=== PATIENT | male | born 1950 | race Caucasian/White ===

== ENCOUNTER 2016-12-12 08:10 | Day surgery (SDC) | payer MEDICARE, OTHER ==
[2016-12-08 10:54] VITALS: BMI 35.6
[~2016-12-12 08:10] MED LIST: DEXAMETHASONE SOD PHOSPHATE 10 MG/ML 1 ML VIAL IV ONE; HEPARIN SODIUM,PORCINE 5,000 UNIT/ML 1 ML VIAL SQ ONE; HYDROmorphone 0.5 MG/0.5 ML SYRINGE IVP PRN; LACTATED RINGERS 1,000 ML IV SCH; MIDAZOLAM 2 MG/2 ML VIAL IV PRN; ONDANSETRON 4 MG/2 ML VIAL IVP ONE; Pre Op ABX Message 1 EACH MISC MISCELLANE ONE
[2016-12-12 08:54] VITALS: TEMP 97.9
[2016-12-12] MEDS ORDERED: LIDOCAINE 1% 20 ML VIAL (10MG/ML) FOR IV START INTRADERMA ONE (09:00)
[2016-12-12] MEDS ORDERED: ceFAZolin 2 GM in SODIUM CHLORIDE 0.9% 100 ML IVPB STA (09:56)
--- NOTE | 2016-12-12 09:58 | P.GSHP ---
History of Present Illness H&P Date: 12/12/16 Chief Complaint: Left forehead sebaceous cyst This is a 66-year-old male who presents today for excision of left forehead sebaceous cyst. Patient developed a 3 cm mass just above his left eyebrow. Past Medical History Past Medical History: Hyperlipidemia, Hypertension, Thyroid Disorder Additional Past Medical History / Comment(s): cyst on forehead, gout History of Any Multi-Drug Resistant Organisms: MRSA Date of last positivie culture/infection: 2012 MDRO Source:: left hip Past Surgical History: Joint Replacement Additional Past Surgical History / Comment(s): left hip Past Anesthesia/Blood Transfusion Reactions: No Reported Reaction Smoking Status: Current every day smoker - Past Family History Mother Family Medical History: No Reported History Medications and Allergies Home Medications Medication Instructions Recorded Confirmed Type Aspirin [Adult Low Dose Aspirin EC] 81 mg PO DAILY 12/08/16 12/12/16 History Febuxostat [Uloric] 40 mg PO QAM 12/08/16 12/12/16 History Levothyroxine Sodium [Synthroid] 75 mcg PO QAM 12/08/16 12/12/16 History Losartan/Hydrochlorothiazide 1 each PO QAM 12/08/16 12/12/16 History [Hyzaar 100-12.5 Tablet] Sertraline [Zoloft] 50 mg PO QAM 12/08/16 12/12/16 History Simvastatin [Zocor] 40 mg PO QAM 12/08/16 12/12/16 History Allergies Allergy/AdvReac Type Severity Reaction Status Date / Time bupropion [From Zyban] Allergy Rash/Hives Verified 12/12/16 08:52 diclofenac [From Arthrotec] Allergy Anaphylaxis Verified 12/12/16 08:52 misoprostol [From Arthrotec] Allergy Anaphylaxis Verified 12/12/16 08:52 Hwnqxac-Pvj-Rra Reductase AdvReac muscle pain Verified 12/12/16 08:52 Inhibitor Surgical - Exam Vital Signs Temp Pulse Resp BP Pulse Ox 97.9 F 63 16 152/91 97 12/12/16 08:52 12/12/16 08:52 12/12/16 08:52 12/12/16 08:52 12/12/16 08:52 - General well developed, no distress - Eyes PERRL - ENT 3 cm cyst above left eyebrow. normal pinna - Neck no masses - Respiratory normal expansion - Cardiovascular Rhythm: regular - Abdomen Abdomen: soft, non tender Assessment and Plan Plan: Sebaceous cyst left forearm. We'll perform excision.
[2016-12-12] MEDS ORDERED: fentaNYL (PF) 50 MCG/ML 2 ML AMP ONE (10:34)
[2016-12-12] MEDS ORDERED: MIDAZOLAM 2 MG/2 ML VIAL ONE (10:34)
[2016-12-12] MEDS ORDERED: PROPOFOL 10 MG/ML 20 ML VIAL IV ONE (10:34)
[2016-12-12] MEDS ORDERED: BUPIVACAIN-EPI 0.5%-1:200,000 30 ML VIAL SQ ONE ×2 (10:34)
--- NOTE | 2016-12-12 10:38 | P.OP ---
Date of Procedure: 12/12/16 Preoperative Diagnosis: GI bleed Postoperative Diagnosis: Antral gastritis Hiatal hernia Esophagitis Internal hemorrhoids. Diverticulosis Procedure(s) Performed: EGD Colonoscopy Anesthesia: MAC Surgeon: Raghu Haider Pathology: other (Antrum, esophagus) Condition: stable Disposition: PACU Description of Procedure: The patient's placed on the endoscopy table in the lateral position. He received IV sedation. Digital rectal exam was performed which revealed internal and external hemorrhoids. Flexible colonoscope was then placed patient anus passed throughout the entire colon. The ileocecal valve was visualized. The cecum, ascending and transverse colon appeared normal. In the descending and sigmoid colon there were diverticular changes. Scope was brought back the rectum and this appeared normal. Scope was brought back through the anus and there were large internal hemorrhoids noted. Scope was withdrawn for patient. The gastroscope placed oropharynx and passed into the esophagus and stomach. Scope was then placed through the pylorus. The first and second portion of duodenum. Normal. The scope was then brought back the antrum this. Mildly inflamed. A biopsies performed. The scope was then retroflexed and remainder of the stomach appeared normal. There was a moderate size hiatal hernia. The GE junction was at 38 cm the distal esophagus appeared inflamed and a biopsies performed. The proximal esophagus appeared normal. Scope was withdrawn for patient.
[2016-12-12] MEDS ORDERED: KETOROLAC 30 MG/ML 1 ML VIAL IVP ONE ×2 (11:44)
[2016-12-12] MEDS ORDERED: MORPHINE SULFATE 4 MG/ML SYRINGE IVP ONE (11:45)
[2016-12-12 11:57] VITALS: BP 143/87; PULSE 68; RESP 18
--- NOTE | 2016-12-25 16:49 | P.OP ---
Date of Procedure: 12/12/16 Preoperative Diagnosis: Left forehead sebaceous cyst Postoperative Diagnosis: Left forehead lipoma Procedure(s) Performed: Excision of left forehead lipoma Anesthesia: MAC Surgeon: Raghu Haider Estimated Blood Loss (ml): 5 Pathology: other (Lipoma) Condition: stable Disposition: PACU Description of Procedure: The patient's placed on the operative table in the supine position. He received anesthesia. His left forehead was prepped and draped usual sterile fashion. The patient had a mass over his left eyebrow. The mass measures prostate 5 cm diameter. Skin was anesthetized 1% local Xylocaine. And then the skin was incised with a 15 blade. Using blunt and sharp dissection with cautery the mass was excised. The mass appeared to have appearance of intramuscular lipoma. The Bovie hemostasis. The skin was closed interrupted 3- 0 Monocryl suture. Dermabond was applied. Patient was sent to recovery in stable condition.
== END 2016-12-12 12:18 | disposition home or self-care (01) ==
LOC: OR 08:10
PROVIDERS: ATTEND Surgery
DX: L72.3 Sebaceous cyst (principal); E07.9 Disorder of thyroid, unspecified; E78.5 Hyperlipidemia, unspecified; I10 Essential (primary) hypertension; Z79.82 Long term (current) use of aspirin; F17.200 Nicotine dependence, unspecified, uncomplicated; Z79.899 Other long term (current) drug therapy
CPT/HCPCS: 88304; 11446; J2250; J2270; J1644; J1100; J0690; J2405; J3010; J1885; J2704

== ENCOUNTER → 2017-01-29 | Outpatient (CLI) | payer MEDICARE, OTHER ==
--- NOTE | 2017-01-29 12:01 | XR ---
EXAMINATION TYPE: XR knee complete RT DATE OF EXAM: 01/29/2017 COMPARISON: NONE HISTORY: Pain TECHNIQUE: Four views are submitted. FINDINGS: Mild narrowing of the medial compartment of the knee joint and patellofemoral joint. Hypertrophic spu rs are noted along the upper margin of the patella. Sclerotic changes involving the diaphysis of the femur. Osseous structures are intact. No acute frac ture seen. IMPRESSION: 1. Osteoarthritis. 2. Sclerotic lesion diaphysis femur may been the basis of a bone infarct. Chondroid lesion not exclud ed as lesion is only partially included. Correlate with dedicated femur series and bone scan.
== END | disposition home or self-care (01) ==
LOC: RADXRMAIN 11:46
PROVIDERS: ATTEND Physician Assistant
DX: M17.11 Unilateral primary osteoarthritis, right knee (principal); M89.8X8 Other specified disorders of bone, other site

== ENCOUNTER → 2017-03-02 | Outpatient (CLI) | payer MEDICARE, OTHER ==
--- NOTE | 2017-03-05 13:03 | MR ---
EXAMINATION TYPE: MR knee RT wo/w con, MR femur/thigh RT wo/w con DATE OF EXAM: 03/01/2017 and 03/02/2017 COMPARISON: Radiograph 01/29/2017 HISTORY: 66-year-old male with right knee pain/swelling x 6 mos; abnormal xray. ( Right Thigh Pain Gadavist 12.5 (accession [id number]) Technique: Multiplanar, multisequence images of the right knee followed by the right femur were obtai ethan before and after administration of 12.5 mL intravenous Gadavist gadolinium contrast. FINDINGS: KNEE: There is a heterogeneously enhancing, T2 hyperintense and T1 low signal bubbly lesion centered within the intramedullary space of the distal femoral diaphysis and measures 4.3 cm craniocaudal by 3.0 cm wide by 2.6 cm AP dimension. Dark signal curvilinear areas are present within suggesting lesion with chondroid matrix. However, this abuts the posterior cortex and violates it focally measuring 1 cm wide and 8 mm cranioc audal. No significant extraosseous component is seen. The ACL, PCL, MCL, and LCL complex appear intact. There appears to be a posterior root tear of the lateral meniscus with additional oblique tear extend ing along the posterior horn and body. Overall lateral compartment articular cartilage volume is main tained. There is also extensive degenerative signal within the posterior horn of the medial meniscus and susp ected small tear at the junction of the posterior horn and body. Overall medium compartment articular cartilage is maintained. There is mild degenerative thinning of patellofemoral compartment articular cartilage with small foca l areas of moderate irregular cartilage loss and associated subchondral cystic change. There is soft tissue edema overlying the patellar tendon and edematous thickening of the proximal pat ellar tendon with focal high signal within suggesting a tiny intrasubstance tear measuring 7 mm. Tend inotic signal also suggested at the quadriceps insertion. Reactive edema within the inferior pole of the patella. There is a small Wynn's cyst spanning approximately 5 cm. Anterior soft tissue swelling. Normal popliteal artery anatomy. There is mild diffuse muscular atrophy. FEMUR: There is metal hardware artifact seen along the proximal to mid left femur from prior fixation. Assessment of the remaining right femur shows no suspicious bone marrow placement or significant soft tissue abnormality. Mild diffuse muscular atrophy. Imaging is only performed from the subtrochanteric region and below. COMBINED IMPRESSION: 1. Findings suggest a 4.3 cm chondroid lesion within the distal femoral diaphysis. This abuts the pos terior cortex and focally violates the cortex for an area of 1 cm. No significant extraosseous soft t issue component. Given the cortical violation, low-grade chondrosarcoma should be excluded. Recommend referral to orthopedic oncology for further management. 2. The remainder of the femur up to the subtrochanteric region appears normal. 3. Jumper's knee with a small 7 mm intrasubstance tear of the proximal patellar tendon and prominent adjacent edema. 4. Posterior root tear of the lateral meniscus with an additional tear extending into the posterior h orn and body. 5. Extensive degenerative signal in the posterior horn of the medial meniscus with possible small tea r at the junction of the posterior horn and body. 6. Mild overall patellofemoral compartment osteoarthrosis. 7. Small elongated Wynn cyst measuring 5 cm.
== END | disposition home or self-care (01) ==
LOC: RADMRIMAIN 19:49
PROVIDERS: ATTEND Orthopaedic Surgery
DX: S86.811A Strain of other muscle(s) and tendon(s) at lower leg level, right leg, initial encounter (principal); S83.281A Other tear of lateral meniscus, current injury, right knee, initial encounter; M17.11 Unilateral primary osteoarthritis, right knee; M71.21 Synovial cyst of popliteal space [Baker], right knee
CPT/HCPCS: 73720; A9581

== ENCOUNTER → 2019-09-04 | Outpatient (CLI) | payer MEDICARE, OTHER ==
--- NOTE | 2019-09-04 14:00 | XR ---
Right ankle HISTORY: Pain, osteoarthritis 3 views the right ankle There is a small ossific density distal to the fibula which may represent an avulsion injury. Soft ti ssue swelling is present. Alignment and joint spaces are maintained. Some spurring is present at the tibiotalar joint. There is a plantar calcaneal spur. Enthesophyte present at the insertion of [place] s tendon. Degenerative changes are present at the intertarsal joints. IMPRESSION: Correlate for trauma, point tenderness suggestive of distal fibular fracture or avulsion injury. Osteoarthritis. Additional findings above.
--- NOTE | 2019-09-04 14:01 | XR ---
Lumbosacral spine HISTORY: Sciatica, pain 3 views the lumbar spine There is a mild dextroscoliosis. Multilevel spondylosis is present. No evident spondylolysis or spond ylolisthesis. Loss of disc height is greatest at L4-5 with associated vacuum phenomenon present, loss of disc height also present L5-S1, L3-4, lesser extent L2-3, L1-2. Sclerosis present in the posterio r elements compatible with facet arthropathy. Atherosclerotic vascular calcifications noted in the ao rta. IMPRESSION: Degenerative disc disease, facet arthropathy. Additional findings above.
== END | disposition home or self-care (01) ==
LOC: RADXRMAIN 11:56
PROVIDERS: ATTEND Family Medicine
DX: M19.071 Primary osteoarthritis, right ankle and foot (principal); M54.31 Sciatica, right side; M51.37 Other intervertebral disc degeneration, lumbosacral region; M47.897 Other spondylosis, lumbosacral region
CPT/HCPCS: 72110

== ENCOUNTER → 2020-05-31 | Outpatient (CLI) | payer MEDICARE, OTHER | LOC: RADMRIMAIN 09:35 | PROVIDERS: ATTEND Orthopaedic Surgery | DX: Z53.9 Procedure and treatment not carried out, unspecified reason (principal) ==

== ENCOUNTER → 2020-09-16 | Outpatient (CLI) | payer MEDICARE, OTHER ==
[2020-09-16 13:47] LABS: African American GFR (CKD) >90 (>60 ml/min/1.73 sqM); Blood Urea Nitrogen 15 mg/dL (9-20); Non-African American GFR(CKD) >90 (>60 ml/min/1.73 sqM)
--- NOTE | 2020-09-16 18:27 | CT ---
EXAMINATION TYPE: CT adrenal glands wo/w con DATE OF EXAM: 09/16/2020 COMPARISON: Outside MRI 08/05/2020 HISTORY: 70-year-old male R19.09, adrenal mass TECHNIQUE: Contiguous axial scanning of the abdomen performed without and with IV Contrast, patient i njected with 100 mL of Isovue 300. Long delay scan through the adrenal glands also obtained. Coronal/ sagittal reconstructions performed. CT DLP: 3044.5 mGycm Automated exposure control for dose reduction was used. FINDINGS: Heart normal size without pericardial effusion. Lung bases clear without pleural effusion. Liver enlarged at 21.8 cm with diffuse low attenuation compatible with fatty infiltration. Some fatty sparing is present along the gallbladder fossa. A couple benign cysts are present measuring 2.1 cm and the left lobe and 3.8 cm in the right lobe. Portal venous system is patent. No biliary ductal dilatation. Gallbladder, left adrenal gland, kidneys, spleen, and pancreas within normal limits. There is a small intrinsic focus of fat measuring 7 mm within the patient's right adrenal nodule. A c ouple punctate calcifications are also present. The nodule measures 4.6 x 4.6 cm. Noncontrast attenuation: 40 Hounsfield units. Initial postcontrast attenuation: 51 Hounsfield units. Delayed contrast attenuation: 46 Hounsfield units. Absolute washout = 45%. (Requires 60 percent or greater washout for adenoma.) Relative washout = 10%. (Requires 40% or greater washout for adenoma.) Mild atherosclerotic calcifications abdominal aorta without aneurysm. No dilated small bowel, free fluid, or free air. No mesenteric or retroperitoneal lymphadenopathy. Mild stool burden. Left-sided colonic diverticulosis, most extensive in the sigmoid colon, partially visualized. No pericolonic inflammatory change. Pelvis not imaged. Bones: Degenerative change of the SI joints. Moderate to advanced degenerative disc disease L4-S1 lev els. Hypertrophic facet arthropathy mid to lower lumbar spine. Baastrup's disease. [facility] in the visual ized lower thoracic spine. IMPRESSION: 1. WASHOUT CHARACTERISTICS OF THE PATIENT'S 4.6 CM RIGHT ADRENAL MASS ARE NOT CHARACTERISTIC OF AN AD RENAL ADENOMA. A SMALL INTRINSIC FOCUS OF FAT MAY INDICATE A BENIGN MYELOLIPOMA. PHEOCHROMOCYTOMA AND ADRENAL CORTICAL CARCINOMA REMAIN IN THE DIFFERENTIAL AT THIS TIME. METASTATIC DISEASE UNLIKELY IN T HE ABSENCE OF A KNOWN PRIMARY. FOLLOW-UP WILL BE NEEDED TO ENSURE STABILITY. IF FURTHER GROWTH IS ENC OUNTERED, CONSIDER BIOPSY. 2. HEPATOMEGALY AT 21.8 CM WITH HEPATIC STEATOSIS. SIGMOID DIVERTICULOSIS.
== END | disposition home or self-care (01) ==
LOC: RADCTMAIN 13:07
PROVIDERS: ATTEND Family Medicine
DX: E27.8 Other specified disorders of adrenal gland (principal); R16.0 Hepatomegaly, not elsewhere classified; K76.0 Fatty (change of) liver, not elsewhere classified; K57.30 Diverticulosis of large intestine without perforation or abscess without bleeding
CPT/HCPCS: 82565; 84520; 36415; 74170; Q9967

== ENCOUNTER 2021-01-13 08:38 | Day surgery (SDC) | payer MEDICARE, OTHER ==
[2021-01-12 08:46] VITALS: BMI 40.4
[~2021-01-13 08:38] MED LIST changes: -DEXAMETHASONE SOD PHOSPHATE 10 MG/ML 1 ML VIAL IV ONE; -HEPARIN SODIUM,PORCINE 5,000 UNIT/ML 1 ML VIAL SQ ONE; -HYDROmorphone 0.5 MG/0.5 ML SYRINGE IVP PRN; -MIDAZOLAM 2 MG/2 ML VIAL IV PRN; -ONDANSETRON 4 MG/2 ML VIAL IVP ONE; -Pre Op ABX Message 1 EACH MISC MISCELLANE ONE
[2021-01-13 09:09] VITALS: TEMP 97.8
[2021-01-13] MEDS ORDERED: LACTATED RINGERS 1,000 ML IV ONE (09:09)
[2021-01-13] MEDS ORDERED: IOPAMIDOL M200 10 ML VIAL ONE (09:34)
[2021-01-13] MEDS ORDERED: methylPREDNISolone ACETATE 40 MG/ML 1 ML VIAL ONE (09:34)
[2021-01-13] MEDS ORDERED: fentaNYL (PF) 50 MCG/ML 2 ML AMP ONE (09:34)
[2021-01-13] MEDS ORDERED: MIDAZOLAM 2 MG/2 ML VIAL ONE (09:34)
--- NOTE | 2021-01-13 09:53 | P.PCN ---
Date of Procedure: 01/13/21 Procedure(s) Performed: PREOPERATIVE DIAGNOSIS: 1- Lumbar Degenerative Disc Diseases 2-Lumbar spondylosis with Facet arthropathy without myelopathy 3-lumbar radiculopathy. 4-lumbar spinal stenosis POSTOPERATIVE DIAGNOSIS: Same as preop diagnosis. PROCEDURE 1. Lumbar epidural steroid injection under fluoroscopic guidance at the L3-4 level. (Fluoroscopy imaging was available in radiology department) 2. Lumbar epidurogram. ANESTHESIA: Local with 1% lidocaine 3 ml and , moderate sedation with intravenous Versed 2 mg ,and fentanyle 100 Mcg EBL: Minimal PROCEDURE INDICATION: The patient with low back pain and radiculitis symptoms unresponsive to conservative treatment. Fluoroscopy was used to optimize visualization of the needle placement and to maximize safety. PROCEDURE DESCRIPTION / TECHNIQUE: The patient was seen and identified in the preoperative area. Risks, benefits, complications including but not limited to infections ,bleeding ,allergic reaction to the medications ,nerve damage and not complete pain releife , and alternatives were discussed with the patient. The patient agreed to proceed with the procedure and signed the consent. IV was started, and vital signs were stable. Patient was taken to the OR and time out was completed. The patient was placed in the prone position on procedure table and a pillow was placed under the abdomen to reduce lumbar lordosis. The lumbosacral area was prepped and draped in the usual sterile fashion.ere closely monitored during the procedure. Conscious sedation was used during the procedure to decrease patients anxiety. Vital signs was monitered during the entire procedure. Using anterior-posterior fluoroscopy, the L3-4 interlaminar space was identified and the skin over this site was marked and then infiltrated with 1% lidocaine subcutaneously. Subsequently, a 20-gauge Tuohy epidural needle was inserted and advanced toward the epidural space using the ``Loss of resistance technique and guided by AP and lateral fluoroscopy. The correct needle position in the epidural space was verified with the injection of 2 mL of the water soluble contrast dye Isovue 200 contrast and observing an excellent epidurogram with the epidural spread of the dye, after negative aspiration for blood and CSF and in the absence of paresthesias. Again after negative aspiration, a 6 ml mixture containing 60 mg of Depo-medrol , and 2 ml of preservative free Normal Saline, and 2 ml of preservative free lidocaine 1% solution was injected and a washout of epidurogram was seen. Needle was withdrawn intact, skin was cleansed, and bandages were applied. COMPLICATIONS: None DISPOSITION / PLANS: The patient was placed in a supine position and transferred to the recovery area in a stable condition for observation. There was no evidence of lower extremity motor or sensory deficit after the procedure. Patient was discharged from the recovery room after meeting discharge criteria. Home discharge instructions were given to the patient by the staff. The patient was reexamined prior to discharge. The patient will schedule a follow up in the clinic in 2-4 weeks.
[2021-01-13] MEDS ORDERED: IV FLUID CONTINUATION 1,000 ML IV ONE (09:55)
[2021-01-13 10:11] VITALS: BP 131/94; PULSE 78; RESP 16
--- NOTE | 2021-01-13 11:35 | FL ---
Fluoroscopy HISTORY: Pain 15 seconds fluoroscopy time supplied to the referring clinician. 2 intraoperative C-arm images docum ent the procedure. See dictated report from anesthesia.
== END 2021-01-13 10:26 | disposition home or self-care (01) ==
LOC: ORPAIN 08:38
PROVIDERS: ATTEND Specialist
DX: M51.16 Intervertebral disc disorders with radiculopathy, lumbar region (principal); M47.26 Other spondylosis with radiculopathy, lumbar region; M48.061 Spinal stenosis, lumbar region without neurogenic claudication; Z88.6 Allergy status to analgesic agent; Z88.8 Allergy status to other drugs, medicaments and biological substances
CPT/HCPCS: 62323; J2250; J1030; J3010; Q9966; 99152

== ENCOUNTER → 2021-02-07 | Outpatient (CLI) | payer MEDICARE, OTHER ==
[2021-02-07 11:22] LABS: African American GFR (CKD) >90 (>60 ml/min/1.73 sqM); Blood Urea Nitrogen 16 mg/dL (9-20); Non-African American GFR(CKD) 87 (>60 ml/min/1.73 sqM)
--- NOTE | 2021-02-07 12:39 | CT ---
EXAMINATION TYPE: CT adrenal glands wo/w con DATE OF EXAM: 02/07/2021 COMPARISON: Prior CT September 16, 2020 HISTORY: Adrenal mass CT DLP: 4273.3 mGycm, Automated Exposure Control for Dose Reduction was Utilized. CONTRAST: CT scan of the abdomen is performed without oral and without and with IV Contrast, patient injected w ith 100 mL of Isovue 300. Adrenal gland protocol. FINDINGS: LUNG BASES: No significant abnormality is appreciated. LIVER/GB: There are a few simple appearing thin-walled cyst redemonstrated scattered throughout the l iver. Liver size within normal limits. PANCREAS: No significant abnormality is seen. SPLEEN: No significant abnormality is seen. ADRENALS: Left adrenal gland remains within normal limits. Persistent right adrenal mass measuring 4.7 x 4.1 x 4.6 cm current study series 3 image 23 and series 12 image 80 has predominantly soft tissue density with some areas of fat and punctate calcification. Hounsfield units average [address] on today's study with enhancement to 41 on [address] images and enhancement to 51 on 10 minute delayed phase imaging on today's study. KIDNEYS: No renal calculi on the noncontrast images. Some cortical thinning bilaterally. Symmetric co rtical uptake and excretion without hydronephrosis seen bilaterally. Stable mild nonspecific perineph diana fat stranding. Patent bilateral renal arteries without significant plaque or stenosis. BOWEL: Diverticula in the left and sigmoid colon redemonstrated. LYMPH NODES: No greater than 1cm abdominal lymph nodes are appreciated. OSSEOUS STRUCTURES: Facet arthropathy with spurring and disc space narrowing lower lumbar levels rede monstrated. OTHER: Mild calcified plaque in the abdominal aorta extends into iliac branch vessels. IMPRESSION: Stable 4.7 cm right adrenal mass with foci of fat and calcification suggests benign myoli nilda. Other etiologies not excluded on dynamic imaging. Advise repeat CT in 6-12 months time to reass ess for stability in size.
== END ==
LOC: RADCTMAIN 10:32
PROVIDERS: ATTEND Internal Medicine
DX: E27.9 Disorder of adrenal gland, unspecified (principal)
CPT/HCPCS: 82565; 84520; 36415; 74170; Q9967

== ENCOUNTER 2021-02-24 09:56 | Day surgery (SDC) | payer MEDICARE, OTHER ==
[2021-02-23 08:36] VITALS: BMI 40.0
[2021-02-24 10:15] VITALS: RESP 16; TEMP 96.8
[2021-02-24] MEDS ORDERED: IOPAMIDOL M200 10 ML VIAL ONE (10:16)
[2021-02-24] MEDS ORDERED: methylPREDNISolone ACETATE 40 MG/ML 1 ML VIAL ONE (10:16)
[2021-02-24] MEDS ORDERED: .fentaNYL (PF) 50 MCG/ML 2 ML AMP ONE (10:16)
[2021-02-24] MEDS ORDERED: MIDAZOLAM 2 MG/2 ML VIAL ONE (10:16)
--- NOTE | 2021-02-24 10:32 | P.PCN ---
Date of Procedure: 02/24/21 Procedure(s) Performed: PREOPERATIVE DIAGNOSIS: 1- Lumbar Degenerative Disc Diseases 2-Lumbar spondylosis with Facet arthropathy without myelopathy 3-lumbar radiculopathy. 4-lumbar spinal stenosis POSTOPERATIVE DIAGNOSIS: Same as preop diagnosis. PROCEDURE 1. Lumbar epidural steroid injection under fluoroscopic guidance at the L3-4 level. (Fluoroscopy imaging was available in radiology department) 2. Lumbar epidurogram. ANESTHESIA: Local with 1% lidocaine 3 ml and , moderate sedation with intravenous Versed 2 mg ,and fentanyle 100 Mcg EBL: Minimal PROCEDURE INDICATION: The patient with low back pain and radiculitis symptoms unresponsive to conservative treatment. Fluoroscopy was used to optimize visualization of the needle placement and to maximize safety. PROCEDURE DESCRIPTION / TECHNIQUE: The patient was seen and identified in the preoperative area. Risks, benefits, complications including but not limited to infections ,bleeding ,allergic reaction to the medications ,nerve damage and not complete pain releife , and alternatives were discussed with the patient. The patient agreed to proceed with the procedure and signed the consent. IV was started, and vital signs were stable. Patient was taken to the OR and time out was completed. The patient was placed in the prone position on procedure table and a pillow was placed under the abdomen to reduce lumbar lordosis. The lumbosacral area was prepped and draped in the usual sterile fashion.ere closely monitored during the procedure. Conscious sedation was used during the procedure to decrease patients anxiety. Vital signs was monitered during the entire procedure. Using anterior-posterior fluoroscopy, the L3-4 interlaminar space was identified and the skin over this site was marked and then infiltrated with 1% lidocaine subcutaneously. Subsequently, a 20-gauge Tuohy epidural needle was inserted and advanced toward the epidural space using the ``Loss of resistance technique and guided by AP and lateral fluoroscopy. The correct needle position in the epidural space was verified with the injection of 2 mL of the water soluble contrast dye Isovue 200 contrast and observing an excellent epidurogram with the epidural spread of the dye, after negative aspiration for blood and CSF and in the absence of paresthesias. Again after negative aspiration, a 6 ml mixture containing 60 mg of Depo-medrol , and 2 ml of preservative free Normal Saline, and 2 ml of preservative free lidocaine 1% solution was injected and a washout of epidurogram was seen. Needle was withdrawn intact, skin was cleansed, and bandages were applied. COMPLICATIONS: None DISPOSITION / PLANS: The patient was placed in a supine position and transferred to the recovery area in a stable condition for observation. There was no evidence of lower extremity motor or sensory deficit after the procedure. Patient was discharged from the recovery room after meeting discharge criteria. Home discharge instructions were given to the patient by the staff. The patient was reexamined prior to discharge. The patient will schedule a follow up in the clinic in 2-4 weeks.
[2021-02-24] MEDS ORDERED: IV FLUID CONTINUATION 1,000 ML IV ONE (10:35)
--- NOTE | 2021-02-24 10:40 | FL ---
EXAMINATION TYPE: FL guided pain mgmt statistic DATE OF EXAM: 02/24/2021 HISTORY: Fluoroscopy time 6 seconds of fluoroscopy provided. IMPRESSION: 1. Fluoroscopy time.
[2021-02-24 10:56] VITALS: BP 115/79; PULSE 85
== END 2021-02-24 11:10 | disposition home or self-care (01) ==
LOC: ORPAIN 09:56
PROVIDERS: ATTEND Specialist
DX: M51.36 Other intervertebral disc degeneration, lumbar region (principal); M47.816 Spondylosis without myelopathy or radiculopathy, lumbar region; M48.061 Spinal stenosis, lumbar region without neurogenic claudication
CPT/HCPCS: 62323; J2250; J1030; J3010; Q9966; 99152

== ENCOUNTER → 2021-03-16 | Outpatient (CLI) | payer MEDICARE, OTHER ==
[2021-03-16 10:58] VITALS: BP 163/70; PULSE 86; RESP 18; TEMP 98.2
--- NOTE | 2021-03-16 11:11 | P.PN ---
Subjective Progress Note Date: 03/16/21 This is a follow-up visit for this 70 years old male with a chronic history of severe low back pain, he is diagnosed with lumbar spinal stenosis, lumbar degenerative disc disease, lumbar spondylosis with lumbar facet arthropathy, recently we have done lumbar epidural steroid injection at the L3 4 x2 , he r eported that he had 50% -70 improvement of his pain after the procedure, his activity of daily livings improved significantly, he ambulates using cane, as any motor or sensory deficit he denies any fever or night sweats and he continues to use pain medication Motrin when necessary Objective - Vital Signs Vital signs: Vital Signs Temp 98.2 F 03/16/21 10:48 Pulse 86 03/16/21 10:48 Resp 18 03/16/21 10:48 BP 163/70 03/16/21 10:48 Pulse Ox 95 03/16/21 10:48 - Exam Physical Examinations : -Constitutiona : Cooperative , not in acute distress . -HEENT : nech : supple , no Lymphadenopathy , normal thyroid size . : eyes : no ptosis , no icterus, no photophobia . - neurologic : Cranial nerve II to XII intact , no focal neurological deffecit . -psychatric : alert , oriented X 3 , appropriate affect , intact judgment and insight . -Lymphatic : no Lymphadenopathy . - musculoskeltal : Lumber spine moter stegnth lower extremities ,thigh and legs 5/5 Right side , 5/5 Left side deep tendon reflexes : normal Knee Jerk , normal ankle Jerk lumber facet Loading Test =positive Right , positive Left Range of motion of the lumbar spine Flexion 30 degrees, extension 10 degrees strait leg raising test = negative bilaterally Fabere test= negative bilaterally. tenderness over the Sacroiliac joint on the Left sides MRI of the lumbar spine= reviewed Assessment and Plan Plan: Assessment and plan=1-lumbar radiculopathy. 2-Lumbar spinal stenosis. 3-lumbar spondylosis and lumbar facet arthropathy. 4-lumbar degenerative disc disease. Pain improved more than 60% after lumbar epidural steroid injection 2 he could benefit from third lumbar epidural steroid injection at L3 4. - PQRS measures = - Patient's medications are documented in the chart. -Tobacco use is positive, and counseling.Given. -Patient's has not received pneumococcal vaccine. -Advanced care planning discussed, patient not eligible. -Opiate contract not signed. -Pain positive and follow-up visit/procedure is scheduled. -Patient's blood pressure measured [163/70 ] , and documented in the record ,and patient will follow up with the primary care. -Patient's weight was measured and body mass index [39.9 ] above the,normal limits and counseling was done. and patient instructed to follow-up with the primary care physician. -Patient was not identified as an unhealthy alcohol user Time with Patient: Less than 30
== END ==
LOC: PNWHC3 09:51
PROVIDERS: ATTEND Specialist
DX: M48.061 Spinal stenosis, lumbar region without neurogenic claudication (principal); M47.26 Other spondylosis with radiculopathy, lumbar region; M51.16 Intervertebral disc disorders with radiculopathy, lumbar region; Z88.8 Allergy status to other drugs, medicaments and biological substances; Z88.6 Allergy status to analgesic agent; Z88.5 Allergy status to narcotic agent; F17.200 Nicotine dependence, unspecified, uncomplicated
CPT/HCPCS: 99211

== ENCOUNTER 2021-04-26 06:43 | Day surgery (SDC) | payer MEDICARE, OTHER ==
[2021-04-22 14:03] VITALS: BMI 39.3
[2021-04-26 07:11] VITALS: RESP 16; TEMP 97
[2021-04-26] MEDS ORDERED: fentaNYL (PF) 50 MCG/ML 2 ML AMP ONE (07:47)
[2021-04-26] MEDS ORDERED: methylPREDNISolone ACETATE 40 MG/ML 1 ML VIAL ONE (07:47)
[2021-04-26] MEDS ORDERED: MIDAZOLAM 2 MG/2 ML VIAL ONE (07:47)
[2021-04-26] MEDS ORDERED: IOPAMIDOL M200 10 ML VIAL ONE (07:47)
--- NOTE | 2021-04-26 08:01 | P.PCN ---
Date of Procedure: 04/26/21 Procedure(s) Performed: PREOPERATIVE DIAGNOSIS: 1- Lumbar Degenerative Disc Diseases 2-Lumbar spondylosis with Facet arthropathy without myelopathy 3-lumbar radiculopathy. 4-lumbar spinal stenosis POSTOPERATIVE DIAGNOSIS: Same as preop diagnosis. PROCEDURE 1. Lumbar epidural steroid injection under fluoroscopic guidance at the L3-4 level. (Fluoroscopy imaging was available in radiology department) 2. Lumbar epidurogram. # 3rd ANESTHESIA: Local with 1% lidocaine 3 ml and , moderate sedation with intravenous Versed 2 mg ,and fentanyle 100 Mcg EBL: Minimal PROCEDURE INDICATION: The patient with low back pain and radiculitis symptoms unresponsive to conservative treatment. Fluoroscopy was used to optimize visualization of the needle placement and to maximize safety. PROCEDURE DESCRIPTION / TECHNIQUE: The patient was seen and identified in the preoperative area. Risks, benefits, complications including but not limited to infections ,bleeding ,allergic reaction to the medications ,nerve damage and not complete pain releife , and alternatives were discussed with the patient. The patient agreed to proceed with the procedure and signed the consent. IV was started, and vital signs were stable. Patient was taken to the OR and time out was completed. The patient was placed in the prone position on procedure table and a pillow was placed under the abdomen to reduce lumbar lordosis. The lumbosacral area was prepped and draped in the usual sterile fashion.ere closely monitored during the procedure. Conscious sedation was used during the procedure to decrease patients anxiety. Vital signs was monitered during the entire procedure. Using anterior-posterior fluoroscopy, the L3-4 interlaminar space was identified and the skin over this site was marked and then infiltrated with 1% lidocaine subcutaneously. Subsequently, a 20-gauge Tuohy epidural needle was inserted and advanced toward the epidural space using the ``Loss of resistance technique and guided by AP and lateral fluoroscopy. The correct needle position in the epidu ral space was verified with the injection of 2 mL of the water soluble contrast dye Isovue 200 contrast and observing an excellent epidurogram with the epidural spread of the dye, after negative aspiration for blood and CSF and in the absence of paresthesias. Again after negative aspiration, a 6 ml mixture containing 60 mg of Depo-medrol , and 2 ml of preservative free Normal Saline, and 2 ml of preservative free lidocaine 1% solution was injected and a washout of epidurogram was seen. Needle was withdrawn intact, skin was cleansed, and bandages were applied. COMPLICATIONS: None DISPOSITION / PLANS: The patient was placed in a supine position and transferred to the recovery area in a stable condition for observation. There was no evidence of lower extremity motor or sensory deficit after the procedure. Patient was discharged from the recovery room after meeting discharge criteria. Home discharge instructions were given to the patient by the staff. The patient was reexamined prior to discharge he will follow-up with Dr. Devries.
[2021-04-26] MEDS ORDERED: LACTATED RINGERS 1,000 ML IV ONE (08:08)
[2021-04-26] MEDS ORDERED: IV FLUID CONTINUATION 500 ML IV ONE (08:08)
[2021-04-26 08:30] VITALS: BP 125/70; PULSE 93
--- NOTE | 2021-04-26 09:11 | FL ---
EXAMINATION TYPE: FL guided pain mgmt statistic DATE OF EXAM: 04/26/2021 HISTORY: Fluoroscopy time 6 seconds of fluoroscopy provided. IMPRESSION: 1. Fluoroscopy time.
== END 2021-04-26 08:34 | disposition home or self-care (01) ==
LOC: ORPAIN 06:43
PROVIDERS: ATTEND Specialist
DX: M47.816 Spondylosis without myelopathy or radiculopathy, lumbar region (principal); M48.061 Spinal stenosis, lumbar region without neurogenic claudication; M54.16 Radiculopathy, lumbar region
CPT/HCPCS: 62323; J2250; J1030; J3010; Q9966; 99152

== ENCOUNTER 2021-07-29 06:44 | Day surgery (SDC) | payer MEDICARE, OTHER ==
[2021-07-27 15:04] VITALS: BMI 40.6
[~2021-07-29 06:44] MED LIST changes: +LIDOCAINE 1% (10MG/ML) FOR IV START INTRADERMA PRN
[2021-07-29 07:40] VITALS: TEMP 97.9
[2021-07-29] MEDS ORDERED: fentaNYL (PF) 50 MCG/ML 2 ML AMP ONE (07:58)
[2021-07-29] MEDS ORDERED: methylPREDNISolone ACETATE 40 MG/ML 1 ML VIAL ONE (07:58)
[2021-07-29] MEDS ORDERED: ROPIVACAINE 5MG/ML 20ML VIAL ONE (07:58)
[2021-07-29] MEDS ORDERED: MIDAZOLAM 2 MG/2 ML VIAL ONE (07:58)
--- NOTE | 2021-07-29 08:11 | P.PCN ---
Date of Procedure: 07/29/21 Procedure(s) Performed: PREOPERATIVE DIAGNOSIS : 1- Lumbar spondylosis with Facet Arthropathy without myelopathy . 2- Lumber degenerative disc disease POSTOPERATIVE DIAGNOSIS: 1- Lumbar spondylosis with Facet Arthropathy without myelopathy . 2- Lumber degenerative disc disease PROCEDURE: Diagnostic Right L3 , L4 , and L5 medial branch block under fluoroscopy guidance(fluoroscopy images available in the radiology Department ) ( To target the facet joint between Right L4-5 , and L5-S1 )#2nd ANESTHESIA:, Monitored anesthesia care ,as per anesthesia department. EBL: Minimal COMPLICATION: None PROCEDURE INDICATION: Chronic low back pain secondary to Facet arthropathy unresponsive to conservative treatment. PROCEDURE DESCRIPTION: the patient was seen and identified in the preop holding area , risks and benefits and possible complications of the procedure and alternative were discussed with the patient, and the patient agreed to proceed with the procedure and signed the consent and vital signs monitored during the procedure and fluoroscopy was used to maximize the benefit and accuracy of the needle placement, and sedation was given to decrease patient anxiety, patient was taken to the procedure room and placed in prone position vital signs monitored in the back prepped with chlorhexidine X3 then under strict sterile technique using a right oblique fluoroscopy ,the junction of the transverse process and the superior articulating process of the right L3 , L4 , and L5 vertebra which corresponding to the fluoroscopy image of the eye of the Jamie dog on the block side for the medial branches and subsequently , after local infiltration of skin and subcu tissuies with Ropivacaine 0.5 % , one mL at each level ,then 22-gauge 5 inches long Quincke-type needles , 3 needle was used , each one of them placed at the junction of the base of the transverse process and the superior articular process at the appropriate level, and the needle was advanced until the periosteum contacted, needle placement confirmed with AP oblique and lateral view and after appropriate needle placement confirmed, and after negative aspiration for heme and CSF and there was no paresthesia 1-1/2 mL of Ropivacaine 0.5% mixed with 40 mg Depo-Medrol , then half mL injected at each level after negative aspiration the needle subsequently removed . At the end of the procedure and the needles removed and a bandage applied after the skin was cleaned the cleaning solution patient taken to recovery room in stable condition and monitors in the recovery room for 20-30 minutes and discharged home in stable condition after discharge criteria met and patient will follow up with the pain clinic in 2-4 weeks
[2021-07-29] MEDS ORDERED: IV FLUID CONTINUATION 1,000 ML IV ONE (08:15)
[2021-07-29 08:32] VITALS: BP 120/75; PULSE 79; RESP 15
--- NOTE | 2021-07-29 09:40 | FL ---
EXAMINATION TYPE: FL guided pain mgmt statistic DATE OF EXAM: 07/29/2021 HISTORY: Fluoroscopy time 5 seconds of fluoroscopy provided. IMPRESSION: 1. Fluoroscopy time.
== END 2021-07-29 08:45 | disposition home or self-care (01) ==
LOC: ORPAIN 06:44
PROVIDERS: ATTEND Specialist
DX: M47.816 Spondylosis without myelopathy or radiculopathy, lumbar region (principal); G89.29 Other chronic pain
CPT/HCPCS: 64493; 64494; J2250; J1030; J3010; J2795

== ENCOUNTER → 2021-09-01 | Outpatient (CLI) | payer MEDICARE, OTHER ==
[2021-09-01 07:58] VITALS: BP 116/76; PULSE 80; RESP 18; TEMP 98
--- NOTE | 2021-09-01 08:06 | P.PAINPG ---
Objective - Vital Signs Vital signs: Intake & Output 08/31/21 09/01/21 09/01/21 18:59 06:59 18:59 Weight 131.088 kg PQRS Measure Charge Sheet Comment: A 70 yr old male with a history of severe and chronic low back pain secondary to lumbar degenerative disc diseases and lumbar spondylosis with facet arthropathy presents today for evaluation status post R MBB L4-L5, L5-S1 #2. He states he experienced 80% pain relief x 5-6 days status post procedure. Pain level is currently at 5/10 in intensity, constant dull pain with minimal radiation of pain towards RLE. Pain no longer radiates to the right foot. Pain is provoked by walking & climbing. Pain is alleviated with medications (Tyl, Motrin), PT in the past, heat which is ineffective, repostioning and rest. Interventional pain procedures completed include R MBB L3-L5 #2 Patient is currently on Tylenol OTC, Motrin OTC Patient denies any side effects of the medication(s), denies excessive drowsiness or sleepiness, denies suicidal ideation and reports that the current pain medication is helping to control the pain and improve activities of daily living. Patient denies any motor or sensory deficits. Patient denies any fever or night sweats, denies any change in the bowel movements or urination. Physical Examination: -Constitutional: Cooperative. Not in acute distress . -HEENT: Neck is supple. No lymphadenopathy. No thyromegaly. Normal thyroid size. Eyes: No ptosis , no icterus, no photophobia. ENT: No auditory deficits. Normal oropharynx. No Thrush. - Respiratory: Chest clear to auscultations bilaterally. No wheezing. No rhon chi. - Cardiovascular: Regular rate and rhythm. S1 / S2 , no S3 , no S4. - Gastrointestinal: Abdomen soft no tenderness. Bowel sounds positive in all four quadrants. No organomegaly. - Genitourinary: Deferred. - Neurologic: Cranial nerve II to XII intact. No focal neurological deficits. - Psychatric: Alert & oriented x 3. Matching mood & appropriate affect. Judgment and insight intact. - Lymphatic: No Lymphadenopathy. - Musculoskeletal: Cervical spine: Muscle bulk/ tone/ strength in the bilateral upper extremities normal Vertebral body tenderness to palpation over Facet loading test positive Thoracic spine Muscle bulk / tone/ strength in the bilateral paraspinal muscles normal Vertebral body tender to palpation over Facet loading test positive Lumbar spine: Motor bulk/ tone/ strength lower extremities , thigh and legs : 5/5 Deep tendon reflexes : Normal Knee Jerk. Normal Ankle Jerk . Vertebral body tenderness to palpation over Lumbar Facet Loading Test positive over the R Straight Leg Raise: positive at 30 degrees right side/ left side Gaenslen's Test positive Sacral spine : Severe tenderness over the Sacroiliac joint: right side / left side Range of motion: Flexion of the lumbar spine <60 degrees Range of motion: Extension of the lumbar spine <20 degrees Gaenslen's Test positive Chris's Test positive Deejay test: positive right side / left side Thigh Thrust Test Sacral Thrust Test Assessment and plan: Chronic low back pain secondary to lumbar degenerative disc disease , lumbar spondylosis with facet arthropathy without myelopathy Recommendation of R RFA L4-L5, L5-S1. Patient exhibited sufficient and satisfactory pain relief status post procedures. Risks, benefits of procedure discussed and pt verbalized understanding. Denies anticoagulant use or medical history of diabetes. All patient questions answered MAPS reviewed and it was appropriate. I have spent 31 minutes on patient care today. Dr Anaya was available by phone for the evaluation of this patient. The time was used to review the medical records including relevant urine studies and Prescription history (MAPs), review of the available imaging, evaluation and examination of the patient, coordination of care with the medical staff and if applicable referring physicians, as well as creation of the medical record - Pain Location Lower Back Non-Pharmacological Interventions: Heat, Physical Therapy Pharmacological Interventions: Block, Epidural PQRS Narrative: Smoking Status Current every day smoker Pain Intensity [Lower Back] 3 Hx Alcohol Use (MH) No Home Medications: Ambulatory Orders Levothyroxine Sodium [Synthroid] 75 mcg PO HS 12/08/16 Losartan/Hydrochlorothiazide [Hyzaar 100-12.5 Tablet] 1 each PO HS 12/08/16 Colchicine 0.6 mg PO Q48H PRN 01/12/21 traZODone HCL 50 mg PO HS 01/12/21 amLODIPine BESYLATE 5 mg PO HS 04/22/21 Glucosamine (Unknown Dose) 1 tab PO DAILY 06/16/21 Vitamin C (Unknown Dose) 1 tab PO DAILY 06/16/21 Acetaminophen Tab [Tylenol Tab] 1,000 mg PO Q6HR 08/31/21 [place]-3/Dha/Epa/Fish Oil [Fish Oil 1,000 mg Softgel] 1 each PO DAILY 08/31/21 Controlled Substance Measures - Controlled Substance Measures Is patient prescribed a controlled substance at discharge?: No
== END ==
LOC: PNWHC3 07:36
PROVIDERS: ATTEND Specialist
DX: M47.816 Spondylosis without myelopathy or radiculopathy, lumbar region (principal); M51.36 Other intervertebral disc degeneration, lumbar region; G89.29 Other chronic pain; F17.200 Nicotine dependence, unspecified, uncomplicated; Z88.6 Allergy status to analgesic agent; Z88.8 Allergy status to other drugs, medicaments and biological substances
CPT/HCPCS: 99211

== ENCOUNTER 2021-10-04 09:18 | Day surgery (SDC) | payer MEDICARE, OTHER ==
[2021-10-04 09:39] VITALS: RESP 16; TEMP 97.6
[2021-10-04] MEDS ORDERED: MIDAZOLAM 2 MG/2 ML VIAL ONE (10:10)
[2021-10-04] MEDS ORDERED: fentaNYL (PF) 50 MCG/ML 2 ML AMP ONE (10:10)
[2021-10-04] MEDS ORDERED: ROPIVACAINE 5 MG/ML 20 ML AMPULE ONE (10:10)
[2021-10-04] MEDS ORDERED: methylPREDNISolone ACETATE 40 MG/ML 1 ML VIAL ONE (10:10)
--- NOTE | 2021-10-04 10:30 | P.PCN ---
Date of Procedure: 10/04/21 Procedure(s) Performed: PREOPERATIVE DIAGNOSIS: 1-Lumbar Spondylosis with Facet Arthropathy without myelopathy. 2- Lumber degenerative disc disease. POSTOPERATIVE DIAGNOSIS: 1- Lumbar Spondylosis with Facet Arthropathy without myelopathy. 2- Lumber degenerative disc disease. PROCEDURES : Right Radiofrequency thermocoagulation, L3 , L4 , and L5 medial branch, with fluoroscopic guidance (fluoroscopy images available in the radiology department) ( to denervate the facet joint at Right L4-5 ,and L5-S1 levels ). ANESTHESIA: Moderate sedation with intravenous versed 2 mg and fentaneyl 100 mcg, and local infiltration with Ropivacaine 0.5 % . EBL: Minimal PROCEDURE INDICATION: The patient with low back pain secondary to lumbar facet arthropathy who had more than 50% relief of her pain with previous diagnostic lumbar medial branch block with bupivacaine. PROCEDURE DESCRIPTION / TECHNIQUE: The patient was seen and identified in the preoperative area. Risks, benefits, complications, including but not limited to risk of infection ,bleeding , allergic reactions to the medications and no complete pain releife , and alternatives were discussed with the patient, the patient agreed to proceed with the procedure and signed the consent. IV was started. Vital signs remained stable throughout the procedure. Patient was taken to the OR and time out was completed. The patient was placed in the prone position on the procedure table. The lumber area was prepped and draped in the usual sterile fashion. . Vital signs were closely monitored during the procedure .IV sedation was used during the procedure to decrease patients anxiety. Using AP and then oblique fluoroscopy, the ``eye of the Jamie dog corresponding to the connection between the superior and transverse articular processes of right L3, L4, and L5 were identified, marked, and localized with 1% lidocaine. Subsequently, a 18 guage 150-mm radiofrequency cannula with a 10-mm active tip was advanced guided by fluoroscopy to each of the``eyes of the Jamie dog at right L3, L4, and L5. Each site then underwent sensory testing at 50 Hz and 0 to 1 volt and motor testing at 2.5 Hz and 0 to 3 volt with local stimulation, but no radicular symptoms down the legs. Thereafter each sites underwent radiofrequency thermocoagulation at 80 degrees celsius for 90 seconds after injecting 0.5 ml of PF Ropivacaine 1ml, then after the thermocoagulation done , 1 ml of the block solution containing Depo-Medrol 20 mg and 3 ml of Ropivacaine 0.5% was injected at the right L3 , L4 , and L5 , levels after negative aspiration of CSF and blood and with no paresthesias. Cannulas were retracted while injecting lidocaine 1% until the needle is out. . At the end of the procedure, the skin was cleansed and bandages were applied. COMPLICATIONS: No acute complications. DISPOSITION / PLANS: The patient was placed in a supine position and transferred to the recovery area in a stable condition for observation and was discharged from the recovery room after meeting discharge criteria. Home discharge instructions given to the patient by the staff. The patient was reexamined prior to discharge. The patient will schedule a follow up in the clinic in 2-4 weeks.
[2021-10-04] MEDS ORDERED: IV FLUID CONTINUATION 1,000 ML IV ONE ×2 (10:34)
--- NOTE | 2021-10-04 10:53 | FL ---
Fluoroscopy HISTORY: Pain 18 seconds fluoroscopy time supplied to the referring clinician. 3 intraoperative C-arm images docum ent the procedure. See dictated report from anesthesia.
[2021-10-04 11:16] VITALS: BP 122/86; PULSE 73
== END 2021-10-04 11:14 | disposition home or self-care (01) ==
LOC: ORPAIN 09:18
PROVIDERS: ATTEND Specialist
DX: M47.816 Spondylosis without myelopathy or radiculopathy, lumbar region (principal); M51.36 Other intervertebral disc degeneration, lumbar region; Z88.8 Allergy status to other drugs, medicaments and biological substances; Z88.6 Allergy status to analgesic agent; Z79.890 Hormone replacement therapy; Z79.899 Other long term (current) drug therapy; F17.200 Nicotine dependence, unspecified, uncomplicated
CPT/HCPCS: 64635; 64636; J2250; J1030; J3010; J2795; 99152

== ENCOUNTER → 2021-10-19 | Outpatient (CLI) | payer MEDICARE, OTHER ==
[2021-10-19 12:41] VITALS: BP 128/78; PULSE 90; RESP 18; TEMP 98.5
--- NOTE | 2021-10-19 13:38 | P.PAINPG ---
PQRS Measure Charge Sheet Comment: A 71 yr old male with a history of severe and chronic low back pain secondary to lumbar degenerative disc diseases and lumbar spondylosis with facet arthropathy presents today for evaluation status post R RFA L4-L5, L5-S1. Patient states he experienced 30% relief status post procedure. Pain level is currently at 1/10 in intensity, intermittent, sore in character when walking and occasionally radiates towards his buttocks. Palliated with PT in June 2021 x 6 weeks, medications (Tylenol, Ibuprofen), heat, ice, sitting, repositioning and rest Interventional pain procedures completed include LESI L3-L4 x 3, R RFA L3-L5 Patient is currently on Tylenol, Ibuprofen Patient denies any side effects of the medication(s), denies excessive drowsiness or sleepiness, denies suicidal ideation and reports that the current pain medication is helping to control the pain and improve activities of daily living. Patient denies any motor or sensory deficits. Patient denies any fever or night sweats, denies any change in the bowel movements or urination. Physical Examination: -Constitutional: Cooperative. Not in acute distress . - Neurologic: Cranial nerve II to XII intact. No focal neurological deficits. - Psychatric: Alert & oriented x 3. Matching mood & appropriate affect. Judgment and insight intact. - Musculoskeletal: Cervical spine: Muscle bulk/ tone/ strength in the bilateral upper extremities normal Vertebral body tenderness to palpation over Spurling test positive Distraction test positive Facet loading test positive Thoracic spine Muscle bulk / tone/ strength in the bilateral paraspinal muscles normal Vertebral body tender to palpation over Facet loading test positive Lumbar spine: Motor bulk/ tone/ strength lower extremities , thigh and legs : 5/5 Deep tendon reflexes : Normal Knee Jerk. Normal Ankle Jerk . Vertebral body tenderness to palpation over Lumbar Body Tenderness positive R L5 Straight Leg Raise: positive at 30 degrees right side/ left side Gaenslen's Test positive Sacral spine : Severe tenderness over the Sacroiliac joint: right side / left side Range of motion: Flexion of the lumbar spine <60 degrees Range of motion: Extension of the lumbar spine <20 degrees Gaenslen's Test positive Chris's Test positive Deejay test: positive right side / left side Thigh Thrust Test Sacral Thrust Test Assessment and plan: Chronic low back pain secondary to lumbar degenerative disc disease , lumbar spondylosis with facet arthropathy without myelopathy Recommendation of R iliolumbar ligament injection. May need a series of injections, up to 2, for optimal pain relief. Risks, benefits of procedure discussed and pt verbalized understanding. Denies anticoagulant use or medical history of diabetes. All patient questions answered MAPS reviewed and it was appropriate. I have spent less than 30 minutes on patient care today. Dr Anaya was available by phone for the evaluation of this patient. The time was used to review the medical records including relevant urine studies and Prescription history (MAPs), review of the available imaging, evaluation and examination of the patient, coordination of care with the medical staff and if applicable referring physicians, as well as creation of the medical record PQRS Narrative: Smoking Status Current every day smoker Hx Alcohol Use (MH) No Home Medications: Ambulatory Orders Levothyroxine Sodium [Synthroid] 75 mcg PO HS 12/08/16 Losartan/Hydrochlorothiazide [Hyzaar 100-12.5 Tablet] 1 each PO HS 12/08/16 Colchicine 0.6 mg PO Q48H PRN 01/12/21 traZODone HCL 50 mg PO HS 01/12/21 amLODIPine BESYLATE 5 mg PO HS 04/22/21 Glucosamine (Unknown Dose) 1 tab PO DAILY 06/16/21 Vitamin C (Unknown Dose) 1 tab PO DAILY 06/16/21 Acetaminophen Tab [Tylenol Tab] 500 mg PO Q6HR PRN 08/31/21 [place]-3/Dha/Epa/Fish Oil [Fish Oil 1,000 mg Softgel] 1 each PO DAILY 08/31/21 Ibuprofen [Advil] 200 mg PO Q6HR PRN 09/30/21 Controlled Substance Measures - Controlled Substance Measures Is patient prescribed a controlled substance at discharge?: No
== END ==
LOC: PNWHC3 12:08
PROVIDERS: ATTEND Specialist
DX: M51.36 Other intervertebral disc degeneration, lumbar region (principal); M47.816 Spondylosis without myelopathy or radiculopathy, lumbar region; G89.29 Other chronic pain; F17.200 Nicotine dependence, unspecified, uncomplicated; Z88.6 Allergy status to analgesic agent; Z88.8 Allergy status to other drugs, medicaments and biological substances
CPT/HCPCS: 99211

== ENCOUNTER 2021-11-15 10:08 | Day surgery (SDC) | payer MEDICARE, OTHER ==
[2021-11-14 14:37] VITALS: BMI 39.0
[2021-11-15] MEDS ORDERED: LACTATED RINGERS 1,000 ML IV ONE ×2 (10:44→11:18)
[2021-11-15 10:45] VITALS: TEMP 97.1
[2021-11-15] MEDS ORDERED: ROPIVACAINE 5 MG/ML 20 ML AMPULE ONE (11:05)
[2021-11-15] MEDS ORDERED: fentaNYL (PF) 50 MCG/ML 2 ML AMP ONE (11:05)
[2021-11-15] MEDS ORDERED: MIDAZOLAM 2 MG/2 ML VIAL ONE (11:05)
[2021-11-15] MEDS ORDERED: methylPREDNISolone ACETATE 40 MG/ML 1 ML VIAL ONE (11:05)
--- NOTE | 2021-11-15 11:22 | P.PCN ---
Date of Procedure: 11/15/21 Procedure(s) Performed: Procedure= Right Iliolumbar ligament steroid injection under fluoroscopy guidance (fluoroscopy image stored on file in the radiology Department ) Preoperative diagnosis= 1-right iliolumbar ligament neuralgia . 2-lumbar degenerative disc disease 3-lumbar facet arthropathy Postoperative diagnosis=Same as preop Diagnosis . Complication = none Condition= stable Anesthesia= moderate sedation with intravenous Versed 2 mg , and fentanyl 100 micrograms . Sedation start time: 11:03 Sedation end time : 11:14 Indication for the procedure= patient complaining of low back pain , examination was positive for severe tenderness over the Right ilolumbar ligament and patient diagnosed with right iliolumbar ligament neuralgia, for this reason he was good candidate for iliolumbar ligament steroid injection. Description of the procedure= procedure risk and benefits discussed with the patient, including but not limited, risk of infection and bleeding, and ALLERGIC reaction to the medication and not complete pain relief and patient agreed with the preceding patient taken to the operating room, placed in prone position or standard monitors applied to the patient then after induction of anesthesia back prepped with chlorhexidine 3 times , Then under strict sterile technique, first I did the right iliolumbar ligament by advancing 22-gauge Quincke-type needle at the middle of the area between the transverse process of the L5 on the right side and the sacral ala, needle placement and after local infiltration of the skin and subcutaneous tissue, then the needle advanced slowly under fluoroscopy and after appropriate needle placed at the location of the right iliolumbar ligament, ropivacaine 0.5% 4 mL mixed with 40 mg of Depo-Medrol mixed together and injected after negative aspiration patient tolerated the procedure well without any complications
--- NOTE | 2021-11-15 11:25 | FL ---
Intraoperative/procedural fluoroscopic services were provided for right iliolumbar injection. Total f luoroscopy time is 3 seconds with a total of 2 submitted images to PACS. Please see the operative not e for further details.
[2021-11-15 11:40] VITALS: BP 114/73; PULSE 74; RESP 20
== END 2021-11-15 11:55 ==
LOC: ORPAIN 10:08
PROVIDERS: ATTEND Specialist
DX: M79.2 Neuralgia and neuritis, unspecified (principal); M51.36 Other intervertebral disc degeneration, lumbar region; M47.816 Spondylosis without myelopathy or radiculopathy, lumbar region
CPT/HCPCS: 20550; 77002; J2250; J1030; J3010; J2795

== ENCOUNTER → 2021-12-19 | Outpatient (CLI) | payer MEDICARE, OTHER ==
[2021-12-19 08:33] VITALS: BP 126/82; PULSE 84; RESP 18; TEMP 98.2
--- NOTE | 2021-12-19 15:40 | P.PAINPG ---
PQRS Measure Charge Sheet Comment: A 71 yr old male with a history of severe and chronic low back pain secondary to lumbar degenerative disc diseases and lumbar spondylosis with facet arthropathy without myelopathy presents today for evaluatin s/p R iliolumbar injection. Pt states he experienced 40% pain relief s/p procedure. Pain level is currently at 3/10 in intensity, constant, localized in lower BL lumbar spine, dull in character w shooting towards the BLEs. Pain is provoked by . Pain is alleviated with PT in June 2021 x 4 wks, meds (Ibu), sitting, repositioning and rest. Interventional pain procedures completed include R iliolumbar, BL RFA L3-l5 Patient is currently on Ibuprofen Patient denies any side effects of the medication(s), denies excessive drowsiness or sleepiness, denies suicidal ideation and reports that the current pain medication is helping to control the pain and improve activities of daily living. Patient denies any motor or sensory deficits. Patient denies any fever or night sweats, denies any change in the bowel movements or urination. Physical Examination: -Constitutional: Cooperative. Not in acute distress . - Neurologic: Cranial nerve II to XII intact. No focal neurological deficits. - Psychatric: Alert & oriented x 3. Matching mood & appropriate affect. Judgment and insight intact. - Musculoskeletal: Cervical spine: Muscle bulk/ tone/ strength in the bilateral upper extremities normal Vertebral body tenderness to palpation over Spurling test positive Distraction test positive Facet loading test positive Thoracic spine Muscle bulk / tone/ strength in the bilateral paraspinal muscles normal Vertebral body tender to palpation over Facet loading test positive Lumbar spine: Motor bulk/ tone/ strength lower extremities , thigh and legs : 5/5 Deep tendon reflexes : Normal Knee Jerk. Normal Ankle Jerk . Vertebral body tenderness to palpation over L5 Lumbar Facet Loading Test positive Straight Leg Raise: positive at 30 degrees right side/ left side Gaenslen's Test positive Sacral spine : Severe tenderness over the Sacroiliac joint: right side / left side Range of motion: Flexion of the lumbar spine <60 degrees Range of motion: Extension of the lumbar spine <20 degrees Gaenslen's Test positive Chris's Test positive Deejay test: positive right side / left side Thigh Thrust Test Sacral Thrust Test Assessment and plan: Chronic low back pain secondary to lumbar degenerative disc disease , lumbar spondylosis with facet arthropathy without myelopathy Recommendation of JOSE L5-S1 #1. Patient may need a series of injections, up to 4 within a 12 month timeframe, for optimal pain relief. Risks, benefits of procedure discussed and pt verbalized understanding. Admits to anticoagulant use or medical history of diabetes. Protocol for discontinuation/continuation of medications carey procedure discussed. All patient questions answered I have spent less than 30 minutes on patient care today. Dr Anaya was available by phone for the evaluation of this patient. The time was used to review the medical records including relevant urine studies and Prescription history (MAPs), review of the available imaging, evaluation and examination of the patient, coordination of care with the medical staff and if applicable referring physicians, as well as creation of the medical record PQRS Narrative: Smoking Status Current every day smoker Hx Alcohol Use (MH) No Home Medications: Ambulatory Orders Levothyroxine Sodium [Synthroid] 75 mcg PO HS 12/08/16 Colchicine 0.6 mg PO Q48H PRN 01/12/21 traZODone HCL 50 mg PO HS 01/12/21 amLODIPine BESYLATE 5 mg PO HS 04/22/21 Vitamin C (Unknown Dose) 1 tab PO DAILY 06/16/21 [place]-3/Dha/Epa/Fish Oil [Fish Oil 1,000 mg Softgel] 1 each PO DAILY 08/31/21 Ibuprofen [Advil] 200 mg PO Q6HR PRN 09/30/21 Losartan/Hydrochlorothiazide [Losartan-Hctz 100-25 mg Tab] 1 tab PO HS 11/14/21 Controlled Substance Measures - Controlled Substance Measures Is patient prescribed a controlled substance at discharge?: No
== END | disposition home or self-care (01) ==
LOC: PNWHC3 08:03
PROVIDERS: ATTEND Specialist
DX: M47.817 Spondylosis without myelopathy or radiculopathy, lumbosacral region (principal)
CPT/HCPCS: 99211

== ENCOUNTER → 2022-07-28 | Outpatient (CLI) | payer MEDICARE, OTHER ==
[2022-07-28 09:22] LABS: African American GFR (CKD) >90 (>60 ml/min/1.73 sqM); Blood Urea Nitrogen 11 mg/dL (9-20); Non-African American GFR(CKD) >90 (>60 ml/min/1.73 sqM)
--- NOTE | 2022-07-28 12:21 | CT ---
EXAMINATION TYPE: CT adrenal glands wo/w con DATE OF EXAM: 07/28/2022 COMPARISON: 02/07/2021 HISTORY: 71-year-old male R19.09, Right adrenal mass TECHNIQUE: Contiguous axial scanning of the abdomen performed without and with IV Contrast, patient i njected with 100 mL of Isovue 300. Additional long delayed scan through the adrenal glands were obtai ethan. Coronal/sagittal reconstructions performed. CT DLP: 3828.6 mGycm Automated exposure control for dose reduction was used. FINDINGS: Heart normal size without pericardial effusion. Lung bases clear without pleural effusion. Tiny hiatal hernia. A few benign hepatic cysts measuring up to 5.2 cm. Portal venous system is patent. No biliary ductal dilatation. Gallbladder, left adrenal gland, spleen, and pancreas within normal limits. A couple benign renal cortical cysts on either side measuring up to 8 mm. Bilateral perinephric stran ding was present previously as well, probably senescent change or could reflect underlying chronic ki dney disease. Mild apical scarring calcifications infrarenal abdominal aorta. No dilated small bowel, free fluid, or free air. No mesenteric or retroperitoneal lymphadenopathy. Normal appendix. There is mild to moderate stool burden. Left-sided colonic diverticulosis, most exte nsive within the visualized proximal to mid sigmoid colon. Redemonstrated mass of the right adrenal gland. This measures up to 4.7 cm versus 4.6 cm, previously. Some minimal internal fat density is present along with punctate calcifications and some mild hetero geneous enhancement as well. Initial noncontrast attenuation is 28 Hounsfield units. Postcontrast enhancement is 40 Hounsfield units. Delayed enhancement is 41 Hounsfield units. Pelvis not imaged. Bones: Advanced degenerative disc disease lower lumbar spine with hypertrophic facet arthropathy and Baastrup's disease. IMPRESSION: 1. RIGHT ADRENAL MASS MEASURES 4.7 CM VERSUS 4.6 CM ON 02/07/2021, NOT SIGNIFICANTLY CHANGED. DENSITY AND WASHOUT CHARACTERISTICS ARE NOT IN KEEPING WITH AN adrenal adenoma. Consider pheochromocytoma or myelolipoma. Stability argues against more worrisome etiologies such as adrenal cortical carcinoma o r metastases. Consider surveillance follow-up every 2 years. A follow-up with noncontrast study would be adequate. 2. Left-sided colonic diverticulosis. Tiny hiatal hernia. Advanced spondylotic change in the visualiz ed lumbar spine.
== END | disposition home or self-care (01) ==
LOC: RADCTMAIN 08:42
PROVIDERS: ATTEND Family Medicine
DX: E27.9 Disorder of adrenal gland, unspecified (principal); K57.30 Diverticulosis of large intestine without perforation or abscess without bleeding; M47.816 Spondylosis without myelopathy or radiculopathy, lumbar region; K44.9 Diaphragmatic hernia without obstruction or gangrene; R19.09 Other intra-abdominal and pelvic swelling, mass and lump
CPT/HCPCS: 82565; 84520; 36415; 74170; Q9967

== ENCOUNTER → 2022-09-20 | Outpatient (CLI) | payer MEDICARE, OTHER ==
[2022-09-20 09:13] VITALS: BP 127/79; PULSE 76; RESP 18; TEMP 98.2
--- NOTE | 2022-09-20 14:30 | P.PAINPG ---
PQRS Measure Charge Sheet Comment: A 72 yr old male with a history of severe and chronic LBP secondary to lumbar DDD and spondylosis with facet arthropathy without myelopathy presents today for evaluation s/p JOSE L5-S1. Pt states he experienced 50% pain relief x 3 mo s/p procedure. Pain level is provoked at 8 /10 in intensity, constant, localized in the lumbar spine, dull, burning in character w shooting towards the RLE. Pain is provoked by walking or over activity. Pain is alleviated with medications, PT x 4 wks in Jun 2021, heat, sitting repositioning and rest. Oswestry pain score of 13. Interventional pain procedures completed include JOSE L5-S1 (Jan 2022) Patient is currently on Advil, Ibu Patient denies any side effects of the medication(s), denies excessive drowsiness or sleepiness, denies suicidal ideation and reports that the current pain medication is helping to control the pain and improve activities of daily living. Patient denies any motor or sensory deficits. Patient denies any fever or night sweats, denies any change in the bowel movements or urination. Physical Examination: -Constitutional: Cooperative. Not in acute distress . - Neurologic: Cranial nerve II to XII intact. No focal neurological deficits. - Psychatric: Alert & oriented x 3. Matching mood & appropriate affect. Judgment and insight intact. - Musculoskeletal: Cervical spine: Muscle bulk/ tone/ strength in the bilateral upper extremities normal Vertebral body tenderness to palpation over Spurling test positive Distraction test positive Facet loading test positive TTP Thoracic spine Muscle bulk / tone/ strength in the bilateral paraspinal muscles normal Vertebral body tender to palpation over Facet loading test positive TTP Lumbar spine: Motor bulk/ tone/ strength lower extremities , thigh and legs : 5/5 Deep tendon reflexes : Normal Knee Jerk. Normal Ankle Jerk . Vertebral body tenderness to palpation over L5 Orozco Test positive Lumbar Facet Loading Test positive Straight Leg Raise: positive at 30 degrees right side/ left side Gaenslen's Test positive Sacral spine : Severe tenderness over the Sacroiliac joint: right side / left side Range of motion: Flexion of the lumbar spine <60 degrees Range of motion: Extension of the lumbar spine <20 degrees Gaenslen's Test positive right side / left side Deejay test: positive right side / left side Thigh Thrust Test positive right side / left side Sacral Thrust Test positive right side / left side Assessment and plan: Chronic LBP secondary to lumbar DDD, spondylosis with facet arthropathy without myelopathy Recommendation of ES L5-S1. May need a series of injections for optimal pain relief. Risks, benefits of procedure discussed and pt verbalized unde rstanding. Admits to anticoagulant use or medical history of diabetes. Protocol for discontinuation/ continuation of medications carey procedure discussed. Minimal anesthesia provided, if clinically indicated, consisting of Versed and Fentanyl. All questions answered. I have spent less than 30 minutes on patient care today. Dr Anaya was available by phone for the evaluation of this patient. The time was used to review the medical records including relevant urine studies and Prescription history (MAPs), review of the available imaging, evaluation and examination of the patient, coordination of care with the medical staff and if applicable referring physicians, as well as creation of the medical record PQRS Narrative: Smoking Status Current every day smoker Hx Alcohol Use (MH) No Home Medications: Ambulatory Orders Levothyroxine Sodium [Synthroid] 75 mcg PO HS 12/08/16 Colchicine 0.6 mg PO Q48H PRN 01/12/21 traZODone HCL 50 mg PO HS 01/12/21 amLODIPine BESYLATE 5 mg PO HS 04/22/21 Vitamin C (Unknown Dose) 1 tab PO DIRECTED 06/16/21 [place]-3/Dha/Epa/Fish Oil [Fish Oil 1,000 mg Softgel] 1 each PO DIRECTED 08/31/21 Ibuprofen [Advil] 200 mg PO Q6HR PRN 09/30/21 Losartan/Hydrochlorothiazide [Losartan-Hctz 100-25 mg Tab] 1 tab PO HS 11/14/21 Controlled Substance Measures - Controlled Substance Measures Is patient prescribed a controlled substance at discharge?: No
== END ==
LOC: PNWHC3 08:22
PROVIDERS: ATTEND Specialist
DX: M51.36 Other intervertebral disc degeneration, lumbar region (principal); M47.816 Spondylosis without myelopathy or radiculopathy, lumbar region; G89.29 Other chronic pain; M53.3 Sacrococcygeal disorders, not elsewhere classified; F17.200 Nicotine dependence, unspecified, uncomplicated; Z88.8 Allergy status to other drugs, medicaments and biological substances
CPT/HCPCS: 99211

== ENCOUNTER 2022-10-17 07:47 | Day surgery (SDC) | payer MEDICARE, OTHER ==
[~2022-10-17 07:47] MED LIST changes: -LIDOCAINE 1% (10MG/ML) FOR IV START INTRADERMA PRN
[2022-10-17 08:11] VITALS: TEMP 97
[2022-10-17] MEDS ORDERED: methylPREDNISolone ACETATE 80 MG/ML 1 ML VIAL ONE (08:23)
[2022-10-17] MEDS ORDERED: IOPAMIDOL M200 10 ML VIAL ONE (08:23)
--- NOTE | 2022-10-17 08:29 | P.PCN ---
Date of Procedure: 10/17/22 Procedure(s) Performed: PREOPERATIVE DIAGNOSIS: 1- Lumbar Degenerative Disc Diseases 2-Lumbar spondylosis with Facet arthropathy without myelopathy. POSTOPERATIVE DIAGNOSIS: 1-lumbar degenerative disc disease. 2-lumbar spondylosis with facet arthropathy without myelopathy.. PROCEDURE 1. Lumbar epidural steroid injection under fluoroscopic guidance at the L5-S1 level. (Fluoroscopy imaging was available in radiology department) 2. Lumbar epidurogram. ANESTHESIA: Lidocaine 1% 3 and then only. EBL: Minimal PROCEDURE INDICATION: The patient with low back pain and radiculitis symptoms unresponsive to conservative treatment. Fluoroscopy was used to optimize visualization of the needle placement and to maximize safety. PROCEDURE DESCRIPTION / TECHNIQUE: The patient was seen and identified in the preoperative area. Risks, benefits, complications including but not limited to infections ,bleeding ,allergic reaction to the medications ,nerve damage and not complete pain releife , and alternatives were discussed with the patient. The patient agreed to proceed with the procedure and signed the consent, and vital signs were stable. Patient was taken to the OR and time out was completed. The patient was placed in the prone position on procedure table and a pillow was placed under the abdomen to reduce lumbar lordosis. The lumbosacral area was prepped and draped in the usual sterile fashion.ere closely monitored during the procedure. Vital signs was monitered during the entire procedure. Using anterior-posterior fluoroscopy, the L5-S1 interlaminar space was identified and the skin over this site was marked and then infiltrated with 1% lidocaine subcutaneously. Subsequently, a 20-gauge Tuohy epidural needle was inserted and advanced toward the epidural space using the ``Loss of resistance technique and guided by AP and lateral fluoroscopy. The correct needle position in the epidural space was verified with the injection of 2 mL of the water soluble contrast dye Isovue 200 contrast and observing an excellent epidurogram with the epidural spread of the dye, after negative aspiration for blood and CSF and in the absence of paresthesias. Again after negative aspiration, a 6 ml mixture containing 60 mg of Depo-medrol ( Preservetive Free ), and 2 ml of preservative free Normal Saline, and 2 ml of preservative free lidocaine 1% solution was injected and a washout of epidurogram was seen. Needle was withdrawn intact, skin was cleansed, and bandages were applied. COMPLICATIONS: None DISPOSITION / PLANS: The patient was placed in a supine position and transferred to the recovery area in a stable condition for observation. There was no evidence of lower extremity motor or sensory deficit after the procedure. Patient was discharged from the recovery room after meeting discharge criteria. Home discharge instructions were given to the patient by the staff. The patient was reexamined prior to discharge. The patient will schedule a follow up in the clinic in 2-4 weeks.
[2022-10-17 08:33] VITALS: BP 111/90; PULSE 77; RESP 18
--- NOTE | 2022-10-17 17:56 | FL ---
Intraoperative/procedural fluoroscopic services were provided. Total fluoroscopy time is 1.5 seconds with a total of 1 submitted images to PACS. Please see the operative/procedural note for further deta ils. DAP: [id number] mGym2
== END 2022-10-17 08:43 | disposition home or self-care (01) ==
LOC: ORPAIN 07:47
PROVIDERS: ATTEND Specialist
DX: M51.16 Intervertebral disc disorders with radiculopathy, lumbar region (principal); M47.26 Other spondylosis with radiculopathy, lumbar region
CPT/HCPCS: 62323; J1040; Q9966

== ENCOUNTER → 2022-12-04 | Outpatient (CLI) | payer MEDICARE, OTHER ==
[2022-12-04 09:05] VITALS: BP 119/73; PULSE 80; RESP 15; TEMP 98.2
--- NOTE | 2022-12-04 14:48 | P.PAINPG ---
PQRS Measure Charge Sheet Comment: A 72 yr old male with a history of severe and chronic LBP secondary to lumbar DDD and spondylosis with facet arthropathy without myelopathy presents today for evaluation s/p JOSE L5-S1 #2. Pt states he experienced 78 % pain relief x 2-3 wks s/p procedure. Pain level is provoked at 3 /10 in intensity, constant, localized in the lumbar spine, dull, burning in character w shooting towards the RLE. Pain is provoked by walking or over activity. Pain is alleviated with medications, PT x 4 wks in Jun 2021, heat, sitting repositioning and rest. Interventional pain procedures completed include JOSE L5-S1 x2 (Jan 2022, oct 2022) Patient is currently on Advil, Ibu Patient denies any side effects of the medication(s), denies excessive drowsiness or sleepiness, denies suicidal ideation and reports that the current pain medication is helping to control the pain and improve activities of daily living. Patient denies any motor or sensory deficits. Patient denies any fever or night sweats, denies any change in the bowel movements or urination. Physical Examination: -Constitutional: Cooperative. Not in acute distress . - Neurologic: Cranial nerve II to XII intact. No focal neurological deficits. - Psychatric: Alert & oriented x 3. Matching mood & appropriate affect. Judgment and insight intact. - Musculoskeletal: Cervical spine: Muscle bulk/ tone/ strength in the bilateral upper extremities normal Vertebral body tenderness to palpation over Spurling test positive Distraction test positive Facet loading test positive TTP Thoracic spine Muscle bulk / tone/ strength in the bilateral paraspinal muscles normal Vertebral body tender to palpation over Facet loading test positive TTP Lumbar spine: Motor bulk/ tone/ strength lower extremities , thigh and legs : 5/5 Deep tendon reflexes : Normal Knee Jerk. Normal Ankle Jerk . Vertebral body tenderness to palpation over L5 Orozco Test positive Lumbar Facet Loading Test positive Straight Leg Raise: positive at 30 degrees right side/ left side Gaenslen's Test positive Sacral spine : Severe tenderness over the Sacroiliac joint: right side / left side Range of motion: Flexion of the lumbar spine <60 degrees Range of motion: Extension of the lumbar spine <20 degrees Gaenslen's Test positive right side / left side Deejay test: positive right side / left side Thigh Thrust Test positive right side / left side Sacral Thrust Test positive right side / left side Assessment and plan: Chronic LBP secondary to lumbar DDD, spondylosis with facet arthropathy without myelopathy Will manage residual pain on his own and may return to clinic on an as needed basis. All questions answered. I have spent less than 30 minutes on patient care today. Dr Anaya was available by phone for the evaluation of this patient. The time was used to review the medical records including relevant urine studies and Prescription history (MAPs), review of the available imaging, evaluation and examination of the patient, coordination of care with the medical staff and if applicable referring physicians, as well as creation of the medical record PQRS Narrative: Smoking Status Current every day smoker Hx Alcohol Use (MH) No Home Medications: Ambulatory Orders Levothyroxine Sodium [Synthroid] 75 mcg PO DAILY 12/08/16 Colchicine 0.6 mg PO Q48H PRN 01/12/21 traZODone HCL 50 mg PO HS 01/12/21 amLODIPine BESYLATE 5 mg PO HS 04/22/21 Vitamin C (Unknown Dose) 1 tab PO DIRECTED 06/16/21 [place]-3/Dha/Epa/Fish Oil [Fish Oil 1,000 mg Softgel] 1 each PO DIRECTED 08/31/21 Ibuprofen [Advil] 200 mg PO Q6HR PRN 09/30/21 Losartan/Hydrochlorothiazide [Losartan-Hctz 100-25 mg Tab] 1 tab PO HS 11/14/21 Controlled Substance Measures - Controlled Substance Measures Is patient prescribed a controlled substance at discharge?: No
== END ==
LOC: PNWHC3 08:33
PROVIDERS: ATTEND Specialist
DX: M51.36 Other intervertebral disc degeneration, lumbar region (principal); M47.816 Spondylosis without myelopathy or radiculopathy, lumbar region; G89.29 Other chronic pain; F17.200 Nicotine dependence, unspecified, uncomplicated; Z88.8 Allergy status to other drugs, medicaments and biological substances; Z88.1 Allergy status to other antibiotic agents
CPT/HCPCS: 99211

== ENCOUNTER → 2024-02-01 | Outpatient (CLI) | payer MEDICARE, OTHER ==
--- NOTE | 2024-02-01 10:47 | XR ---
EXAMINATION TYPE: XR chest 2V DATE OF EXAM: 02/01/2024 9:23 AM COMPARISON: None CLINICAL INDICATION: Male, 73 years old with history of J44.9 CHRONIC OBSTRUCTIVE PULMONARY DISEASE, UNSPE; [facility] TECHNIQUE: XR chest 2V Frontal and lateral views of the chest. FINDINGS: Lungs/Pleura: There is flattening of the diaphragm with increased lucency of the lungs. No evidence o f pneumothorax, pleural effusion or focal consolidation. Pulmonary vascularity: Unremarkable. Heart/mediastinum: Cardiomediastinal silhouette is unremarkable. Musculoskeletal: No acute osseous pathology. Other findings: None IMPRESSION: 1. No acute cardiopulmonary disease process. 2. COPD changes. [facility], , 02/01/2024 10:45 AM
== END | disposition home or self-care (01) ==
LOC: RADXRMAIN 09:08
PROVIDERS: ATTEND Family Medicine
DX: J44.9 Chronic obstructive pulmonary disease, unspecified (principal)
CPT/HCPCS: 71046

== ENCOUNTER → 2024-02-13 | Outpatient (CLI) | payer MEDICARE, OTHER | END | disposition home or self-care (01) | LOC: LABPAT 10:05 | PROVIDERS: ATTEND Orthopaedic Surgery | DX: Z53.9 Procedure and treatment not carried out, unspecified reason (principal) ==

== ENCOUNTER 2024-02-19 10:06 | Inpatient (IN) | payer MEDICARE, OTHER ==
[2024-02-15 11:22] VITALS: BMI 40.4
--- NOTE | 2024-02-18 17:39 | P.HPOR ---
History of Present Illness H&P Date: 02/13/24 .D:Date: 02/13/24 : 02:11pm .T:Title: PRE-OPERATIVE NOTE Date: 02/13/24 Patient: Hayden Hendrix Age: 73 Provider: Sheng Devries DO Facility: [facility]APH[facility] VITALS * Height: 5'11" Weight: 282 lbs BP: 130/80 BMI: 39.33 kg/m CHIEF COMPLAINT Low back pain with bilateral lower extremity weakness and tingling Pain Scale (VAS): 5/10 CLINICAL SUMMARY Mr. Hendrix is a 73-year-old male with severe multilevel lumbar stenosis who presents with rapidly progressive neurological decline. He demonstrates significant functional deterioration with inability to ambulate >50 feet, requiring assistive devices for mobility. His symptoms include bilateral lower extremity weakness, numbness, and tingling with neurogenic claudication. He has failed multiple conservative treatment modalities including physical therapy, oral steroids, injections, and activity modification. Given his progressive neurological decline and severe stenosis on imaging, he is at risk for permanent neurological injury without surgical intervention. He has been deemed an ap propriate surgical candidate and wishes to proceed with decompression and fusion. PERTINENT HISTORY Patient presents with progressive neurological symptoms including: * Unable to walk >50 feet without requiring rest Increased pain to 10/10 with ambulation Bilateral foot numbness and tingling Groin numbness Increased leg heaviness requiring mobility assistance (scooter) Failed conservative management including: * Physical therapy (3 rounds, 12 visits) Home exercise program Oral steroids (2 courses) IM steroid injection Previous JOSE without improvement Activity modification PHYSICAL EXAMINATION Neurological * Motor Strength (Lower Extremities): * Hip Flexion: 4-/5 bilateral Knee Extension/Flexion: 4/5 right, 4-/5 left Dorsiflexion: 4-/5 right, 4/5 left Plantarflexion: 4/5 right, 4-/5 left EHL/FHL: 4-/5 bilateral * Reflexes: * Patellar: 1+ bilateral Achilles: 1+ bilateral * Sensation: * Dermatomal deficits L12-S1 bilateral Functional Status * Requires cane/walker for ambulation Unable to perform toe/heel walk Unable to squat and rise Impaired single leg stance Positive straight leg raise IMAGING MRI (11/21/23) * L1-2: Moderate spondylosis with severe stenosis, left facet cyst L2-3: Moderate spondylosis, severe stenosis with degenerative HNP L3-4: Severe spondylosis, large left facet cyst, severe central/foraminal stenosis L4-5: Severe spondylotic collapse, large HNP, severe stenosis L5-S1: Severe spondylotic collapse with large HNP Notable nerve root turbulence centrally Flattened lordosis (20), PI: 47 PLANNED PROCEDURE L1-S1 decompressive laminectomy with L3-S1 posterolateral and interbody fusion with stabilization SURGICAL INDICATIONS * Progressive neurological decline Failed conservative management Severe multilevel stenosis Functional decline affecting ADLs Risk of permanent neurological deterioration RISK DISCUSSION All surgical procedures come with inherent risks, including those related to positioning, anesthesia, intraoperative findings, and postoperative complications. It is important to understand that surgery does not come with any guarantee of a successful outcome as complications and adverse events are always possible. The patient was given a handout in office discussing the surgical procedure and risks associated with the intervention, both of which were discussed with the patient. These risks include but are not limited to the following: General Surgical Risks ? Experiencing same, different or even worse symptoms in back, neck, arms, or legs compared to before surgery. ? Requiring further surgery or other forms of treatment presently or at some time in the future at same or other levels of the intended spine surgery. ? On an extreme but fortunately relatively rare basis severe complication such as blindness, stroke, heart attack, temporary and/or permanent nerve injury, paralysis, coma, or may occur, sometimes without known explanation. Specific Surgical Complications ? Risk of infection, fluid accumulation in the surgical dissection site, including: * Seroma or hematoma requiring additional surgery Wound drainage Bleeding New numbness or weakness Vision changes/loss Spinal fluid leakage Non-healing and/or infected incision Headaches Difficulty or inability to swallow Hoarseness Hemopneumothorax/pneumothorax Impotence Retrograde ejaculation Vaginal dryness Injury to nerves, spinal cord, blood vessels, lymphatics or other vital organs Heterotopic bone formation Hardware complications including: * Misplaced hardware Device failure Instrumentation at wrong spine level Hardware fracture/breakage Hardware loosening * Vertebral failure above or below hardware Retained surgical instrumentations Medical Risks ? Include but are not limited to: * Generalized infections/sepsis Heart attack Bleeding Anaphylaxis Meningitis Seizure/epilepsy Hearing loss Burn jacinto Laceration of head or other body areas Bruising Hypersensitivity of skin Bladder over distension Allergic reactions Shoulder injury related to positioning Fat, blood and air clots to other areas (heart, lungs, brain) Organ failure (lungs, kidneys, liver) Excessive bleeding Blood transfusion reactions Additional Considerations Despite best efforts, the results of spine surgery might not heal in terms of bone, soft tissues such as skin, fascia, ligaments, and joints. Additionally, the surgery may need to be carried out beyond initially planned levels and involve decompression, fusion including insertion of hardware at levels other than the original intended area to ensure best possible outcomes. The use of off-label instrumentation (devices, implants and hardware), biological substances (bone morphogenic proteins, demineralized bone matrix) and bone sources (allograft/cadaver bone or autograft) has been discussed with associated risks and benefits. INFORMED CONSENT Patient demonstrates understanding of: * Current condition Natural history without intervention Proposed surgical intervention Potential risks and complications Expected recovery course Alternative treatment options PREOPERATIVE STATUS All preoperative requirements have been completed and reviewed: * Primary care clearance: Complete and satisfactory Preoperative labs: Within normal limits EKG: No acute abnormalities Chest X-ray: Clear Medical optimization: Achieved Surgical and anesthesia clearance: Obtained Patient is medically optimized and cleared for the planned procedure. AUTHORIZATION Patient and family have been educated regarding the procedure, risks, benefits, and alternatives. They wish to proceed with surgery as outlined above. All questions have been answered to their satisfaction. Sheng Devries DO [facility] License #: [License Number] Date: 12/30/2023 I will be sure to keep you updated after Mr. Hendrix returns here for further follow-up. Thank you again for your referral. Please do not hesitate to contact me if you have any further questions. Signed and authenticated by: Sheng Devries DO [facility] [address] [place] [id number] . This message is confidential, intended only for the named recipient(s) and may contain information that is privileged or exempt from disclosure under applicable law. If you are not the intended recipient(s), you are notified that the dissemination, distribution or copying of this information is prohibited. If you received this message in error, please notify the sender then delete this message. # SIGNED BY Sheng Devries (GOO)02/17/2024 06:03PM Past Medical History Past Medical History: Hyperlipidemia, Hypertension, Musculoskeletal Disorder, Osteoarthritis (OA), Thyroid Disorder Additional Past Medical History / Comment(s): Pre-Diabetic, hx gout, lumbar spinal stenosis with pain, nerve pain, tingling and numbness in hands and feet, COVID JUNE 2021. 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 Past Anesthesia/Blood Transfusion Reactions: Family History of Problems w/ Anesthesia, Motion Sickness Additional Past Anesthesia/Blood Transfusion Reaction / Comment(s): "Nephew went into anaphylactic shock, he was allergic to it." Patient states never heard of malignant hyperthermia. Smoking Status: Current every day smoker - Past Family History Mother Family Medical History: Myocardial Infarction ([place]) Medications and Allergies Home Medications Medication Instructions Recorded Confirmed Type Levothyroxine Sodium [Synthroid] 75 mcg PO HS 12/08/16 02/15/24 History Colchicine 0.6 mg PO DIRECTED PRN 01/12/21 02/15/24 History traZODone HCL 50 mg PO HS 01/12/21 02/15/24 History Losartan/Hydrochlorothiazide 1 tab PO HS 11/14/21 02/15/24 History [Losartan-Hctz 100-25 mg Tab] amLODIPine BESYLATE 2.5 mg PO HS 02/15/24 02/15/24 History Allergies Allergy/AdvReac Type Severity Reaction Status Date / Time bupropion [From Zyban] Allergy Rash/Hives Verified 02/15/24 11:03 diclofenac [From Arthrotec] Allergy Anaphylaxis, Verified 02/15/24 11:03 TROUBLE BREATH misoprostol [From Arthrotec] Allergy Anaphylaxis Verified 02/15/24 11:03 Kxhjohq-QEL-DlY Reductase AdvReac muscle pain Verified 02/15/24 11:03 Inhibitor [Nokkgyd-Yny-Jrq Reductase Inhibitor] Physical Examination Osteopathic Statement: *. No significant issues noted on an osteopathic structural exam other than those noted in the History and Physical/Consult.
[~2024-02-19 10:06] MED LIST changes: -LACTATED RINGERS 1,000 ML IV SCH; +TRANEXAMIC 1,000 MG/100ML-NACL 1,000 MG in SALINE 1 100ML.BAG IVPB PRN
[2024-02-19] MEDS: IV FLUID CONTINUATION 1,000 ML IV ONE ×2 (10:40)
[2024-02-19] MEDS: ACETAMINOPHEN TAB 500 MG TAB PO PRN (11:06)
[2024-02-19] MEDS: ONDANSETRON 4 MG/2 ML VIAL IVP ONE (11:06)
[2024-02-19] MEDS: GABAPENTIN 300 MG CAP PO PRN (11:06)
[2024-02-19] MEDS: LACTATED RINGERS 1,000 ML IV SCH (11:06)
[2024-02-19] MEDS: DEXAMETHASONE SOD PHOSPHATE 4 MG/ML 1 ML VIAL IV ONE (11:06)
[2024-02-19 11:13] LABS: Glucose,Whole Blood 110 mg/dL (70-110)
[2024-02-19] MEDS ORDERED: PHENYLEPHRINE 10 MG/ML VIAL ONE (11:45)
[2024-02-19] MEDS ORDERED: ROCURONIUM 10 MG/ML (5 ML VIAL) IV ONE (11:45)
[2024-02-19] MEDS ORDERED: PROPOFOL 10 MG/ML 20 ML VIAL IV ONE (11:45)
[2024-02-19] MEDS ORDERED: TRANEXAMIC 1,000 MG/100ML-NACL PREMIX BAG ONE (11:45)
[2024-02-19] MEDS ORDERED: LIDOCAINE 1% INJ 10MG/ML (20 ML MDV) ONE (11:45)
[2024-02-19] MEDS ORDERED: SUCCINYLCHOLINE CHLORIDE 200 MG/10 ML VIAL IV ONE (11:45)
[2024-02-19] MEDS ORDERED: KETOROLAC 15 MG/ML 1 ML VIAL ONE (11:45)
[2024-02-19] MEDS ORDERED: fentaNYL (PF) 50 MCG/ML 2 ML AMP ONE (11:45)
[2024-02-19] MEDS ORDERED: KETAMINE HCL IN 0.9 % NACL 50 MG/5 ML SYRINGE ONE (11:45)
[2024-02-19] MEDS ORDERED: MIDAZOLAM 2 MG/2 ML VIAL ONE (11:45)
[2024-02-19] MEDS: ceFAZolin 3 GM in SODIUM CHLORIDE 0.9% 100 ML IVPB PRN (11:49)
[2024-02-19] MEDS: THROMBIN (BOVINE) 5,000 UNIT VIAL TOPICAL ONE (12:27)
[2024-02-19] MEDS: ceFAZolin 3,000 MG in SODIUM CHLORIDE 0.9% IRRIGATIO 3,000 ML IRRIGATION ONE (12:27)
[2024-02-19] MEDS: GENTAMICIN 80 MG in SODIUM CHLORIDE 0.9% IRRIGATIO 3,000 ML IRRIGATION ONE (12:27)
[2024-02-19] MEDS: LACTATED RINGERS 1,000 ML IV ONE ×4 (14:54→19:49)
[2024-02-19] MEDS: SODIUM CHLORIDE 0.9% 100 ML with ceFAZolin 2,000 MG IV ONE (15:55)
[2024-02-19] MEDS: VANCOMYCIN 1,000 MG VIAL MISCELLANE ONE (17:11)
--- NOTE | 2024-02-19 18:11 | XR ---
Fluoroscopy INDICATION: Pain FINDINGS: Fluoroscopy time: 1 minute 51 seconds. Total dose area product (DAP) in uGy*m?, mGy*cm? (or similar): 532.712 Images obtained: 9. Multiple images document placement of pedicle screws and disc spacers within the lumbar spine IMPRESSION: 1. Documentation of fluoroscopy. [facility], Workstation: [facility], 02/19/2024 6:09 PM
--- NOTE | 2024-02-19 18:18 | P.PN ---
Progress Note - Text Progress Note Date: 02/19/24 Brief Post Op: Surgeon: Kayce Pre op dx;L1s1 SPONDYLOSIS SEVERE STENOSIS Post op dx: same Procedure: L1 to S1 decompressive laminectomy with L2 to pelvis decompression fusion Anesthesia: GETA EBL: 1 L Fluids: 3500 UO: 350 Dispo: Stable to PACU Post op Plan: Post operative noncontrasted CT scan Encourage ambulation tmorrow IS 10x/hr Teds/SCDs Pain control No brace needed for ambulation Record Drain output tele monitoring overnight with O2 monitoring
[2024-02-19] MEDS ORDERED: MAGNESIUM HYDROXIDE 2,400 MG/30 ML CUP PO PRN (18:25)
[2024-02-19] MEDS ORDERED: HYDROcodone/APAP 5-325MG 1 EACH TAB PO PRN (18:25)
[2024-02-19] MEDS ORDERED: SENNOSIDES-DOCUSATE SODIUM 1 EACH TAB PO PRN (18:25)
[2024-02-19] MEDS: HYDROmorphone 0.5 MG/0.5 ML SYRINGE IVP PRN (18:54)
--- NOTE | 2024-02-19 20:51 | FL ---
Fluoroscopy INDICATION: Pain FINDINGS: Fluoroscopy time: 1 minute 51 seconds. Total dose area product (DAP) in uGy*m?, mGy*cm? (or similar): 532.712 Images obtained: 9. Multiple images document placemen t of pedicle screws and disc spacers within the lumbar spine IMPRESSION: 1. Documentation of fluoroscopy. [facility], , 02/19/2024 8:49 PM
[2024-02-19] MEDS: CYCLOBENZAPRINE 5 MG TAB PO PRN (21:35)
[2024-02-19] MEDS: GABAPENTIN 300 MG CAP PO SCH (21:35)
[2024-02-19] MEDS: HYDROcodone/APAP 10-325MG 1 EACH TAB PO PRN (21:35)
[2024-02-19] MEDS: ONDANSETRON 4 MG/2 ML VIAL IVP PRN (22:02)
--- NOTE | 2024-02-19 22:15 | P.OP ---
Date of Procedure: 02/19/24 Preoperative Diagnosis: 1. L1-S1 SPONDYLOSIS, SEVERE WITH SEVERE STENOSIS 2. L1-2 FACET CYST WITH SEVERE STENOSIS 3. L2-3 FACET CYST WITH SEVERE STENOSIS 4. L5-S1 AND L4-5 GRADE I SPONDYLOLISTHESIS 5. NEUROGENIC CLAUDICATION 6. LE WEAKNESS 7. LE RADICULOPATHY 8. LOW BACK PAIN, SEVERE 9. COMPLEX MEDICAL PATIENT 10. OBESITY BMI 40.6 Postoperative Diagnosis: 1. L1-S1 SPONDYLOSIS, SEVERE WITH SEVERE STENOSIS 2. L1-2 FACET CYST WITH SEVERE STENOSIS 3. L2-3 FACET CYST WITH SEVERE STENOSIS 4. L5-S1 AND L4-5 GRADE I SPONDYLOLISTHESIS 5. NEUROGENIC CLAUDICATION 6. LE WEAKNESS 7. LE RADICULOPATHY 8. LOW BACK PAIN, SEVERE 9. COMPLEX MEDICAL PATIENT 10. OBESITY BMI 40.6 Procedure(s) Performed: 1. L4-5 INTRADISCAL, 3 COLUMN, OSTEOTOMY FOR DEFORMITY AND SAGITTAL BALANCE CORRECTION 2. L5-S1 INTRADISCAL, 3 COLUMN, OSTEOTOMY FOR DEFORMITY AND SAGITTAL BALANCE CORRECTION 3. L3-4 POSTEROLATERAL AND INTERBODY FUSION 4. L4-5 POSTEROLATERAL AND INTERBODY FUSION 5. L5-S1 POSTEROLATERAL AND INTERBODY FUSION 6. L2-3 POSTEROLATERAL INSTRUMENTED FUSION 7. SEGMENTAL INSTRUMENTATION L2-PELVIS 8. ATTACHMENT OF THE CAUDAL END OF THE CONSTRUCT TO THE BONY PELVIS NOT SACRUM 9. L1-2, L2-3, L3-4, L4-5 AND L5-S1 BILATERAL LAMINECTOMY, COMPLETE FACETECTOMY AND FORAMINOTOMY FOR COMPLETE NEURAL DECOMPRESSION WELL CAGE PLACEMENT AT THE AFORMENTIONED LEVELS. 10. FACET CYST REMOVAL DONE AT L1-2 AND L2-3 WITH LAMINECTOMY 11. PLACEMENT OF BIOMECHANICAL DEVICES AT L3-4, L4-5, L5-S1, CAGES x3 12. USE OF [employer] NAVIGATION FOR THE ASSISTANCE IN ACCURATE PLACEMENT OF SCREWS USE OF IONM ALL SCREWS TESTING > 20 mA. L5 LEFT TESTING >15mA. MOD22: THIS CASE TOOK 80% LONGER THAN EXPECTED DUE TO PATIENT COMORBID CONDITIONS, BMI >40, EXTENT OF LUMBAR DISEASE AND COMPLEXITY OF THE CASE. Implants: -[employer] EVEREST RODS AND SCREWS -SI BONE GRANIT PELVIC SCREWS -GLOBUS SABLE CAGES x3 -12MM 7-16mm 15 DEG x2 - 10mm 9-17mm 8 DEG -MAGNATOS, CONTOUR, ARTHROCELL, ALLOCELL, DBM, AUTOGRAFT Anesthesia: GETA Surgeon: Sheng Devries Barley Steeper #1: Arianne Sánchez (was present from positiong to screw placement) Barley Steeper #2: Galdino Palacios (was present from screw placement to dressing pacement) Estimated Blood Loss (ml): 1,000 IV fluids (ml): 3,500 Urine output (ml): 350 Pathology: none sent Condition: stable Disposition: PACU Indications for Procedure: Mr. Hendrix is a 73-year-old male with severe multilevel lumbar stenosis presenting for L1-S1 decompressive laminectomy with L3-S1 posterolateral and interbody fusion. He demonstrates progressive neurological decline with bilateral lower extremity weakness (4-/5 strength), numbness, and tingling. His ambulatory status has deteriorated significantly, now limited to less than 50 feet requiring assistive devices. MRI demonstrates severe multilevel stenosis from L1-S1 with multiple disc herniations and facet cysts. He has failed conservative management including physical therapy, oral steroids, and injections. Medical history is significant for hypertension, hyperlipidemia, and previous MRSA infection following hip surgery in 2012. Current medications include levothyroxine, colchicine, trazodone, losartan/HCTZ, and amlodipine. Patient is a current smoker. All preoperative clearances have been obtained with normal labs, EKG, and chest X-ray. Patient understands the risks and benefits of surgery and wishes to proceed with intervention. Description of Procedure: L2-PELVIS DECOMPRESSION AND FUSION (TEJAL) SI BONE GRANIT PELVIS SCREWS L1-S1 DECOMPRESSION The patient was seen and examined in the preoperative area. All preoperative protocols were followed. Informed consent was obtained, risks and benefits of the procedure were discussed at length. Risks including bleeding infection damage to the surrounding tissue and risk of reoperation were discussed with the patient. Risk of anesthesia up to and including was discussed with the patient. These are outlined in the risk review. They were willing to accept these risks and all the risks of surgery. The patient was given a weight-based dose of antibiotics in the form of 3 g Ancef. The patient was seen and evaluated by the anesthesia team who deemed them fit for surgery. The site was marked, the patient was willing to proceed with the procedure. The patient was transferred to the operative suite by the Department of anesthesia. They were then drifted off to sleep by the department anesthesia and GETA was performed. The patient tolerated this well. Segal catheter was placed by nursing staff, a-traumatically. Once confirmation of lines and ventilation the patient was transferred to a prone Trios spine table very carefully. The head was secured and stable. X Ray confirmed alignment. All bony prominences including wrists, elbows, axilla, chest, hips, and thighs, and feet were padded very well. Special attention was paid to the genitalia, and these were padded accordingly. SCDs were placed on bilateral lower extremities and were connected. Arms were well padded and placed at 90/90 up and out and well padded. Safety strap and tape placed on the patient. Once in position, again we confirmed good ventilation capabilities and that lines were running appropriately. The patient's lumbosacral pelvic was then exposed. Hair was removed for incision. 1010s were placed outlining the incision site. Standard alcohol was used to clean the incision site and allowed to dry. C-arm was used to bio-joel the patient and confirm level for incision which was marked with a skin marker. Operative briefing was performed with all teams and everyone in agreement to proceed. The patient was then prepped and draped in a normal sterile fashion. Timeout was then performed, and all parties agreed with the procedure to be performed. Midline skin incision was then made over the previously bookmarked area and dissection taken down to the lumbosacral fascia which was identified and cleaned with a saxena. There was excessive sub-q adipose that was obtrusive and needed to be retracted. Once midline was identified, fasciotomy was made over the SP of L1-S1 and pelvis. Subperiosteal dissection was then taken down over the lamina and facet joints and TPs were exposed and trough made posterolateral. TPs were then decorticated with a high speed latrell for lateral fusion. Dissection was taken out over the sacrum to the pelvis. SI joint identified and modified Forrester starting point for pelvic screws identified as well. Retractors placed. Wound was irrigated and lateral image with penfield 4 placed at the pars of L4 confirmed levels for operation. SP clamp was then placed for the [employer] navigation tracker and secured. The wound was then filled with NSS and Z-drape. A 3D Ziehm spin was then obtained and registered. Once confirmation of accuracy screws were then placed from L2-Pelvis using navigation. Navigated high speed latrell was used to make a steamboat pilot hole followed by a navigated awl-tap passed through the pedicle into the body. A ball tip probe then confirmed within the pedicle. Screw was then measured and placed using a navigated scr ewdriver. After screws were placed from L2-S1, AP image confirmed safe placement of screws. Lateral images as well as navigation were then used to place bilateral SI bone Granit pelvic screws. Starting point selected just lateral to the SI joint and S2 pseudo facet. Lateral image taken and latrell used to make the steamboat pilot hole. Gearshift then used to pass into the pelvis under lateral imaging just above the sciatic notch. 30 deg/30deg iliac oblique then taken to confirm within the teardrop and ball tip probe used to probe good bone. The screw was then measured and selected and placed under lateral imaging. This was repeated on the contralateral side. Screws were then visualized and appeared safe. Screws were then tested, and reliably tested screws tested above 20 mA. We then proceeded to decompression and interbody placement. Starting at L5-S1, bilateral laminectomy, complete facetectomy and foraminotomies were performed using high speed bur, Kerrison rongeur. There was exuberant bone formation throughout the entire lumbar spine, making the case very meticulous and difficult. Severe stenosis with dural scarring was noted at L3-S1. There was significant scar tissue surrounding these joints as well as the dura. Once exposed the neural elements were protected and an intradiscal osteotomy, 3 column, was performed for deformity correction at L5-S1. Osteotome was used to make osteotomy in L5 and S1 and for complete disc removal. A box osteotome was then used to widen this bilaterally. This was passed into the anterior 1/3 of L5. This allowed for loosening of this level and correction. A cage was then selected based on shaving and trials. Bleeding endplates were encountered and cartilage removed. Autograft, allograft were then placed anterior to the cage. The cage was then impacted into place under lateral imaging while protecting neural elements. The cage was then expanded into position and showed good lift and correction. Voodoo of lordosis and height achieved. Meticulous hemostasis then performed. Cage was backfilled with DBM and the area irrigated. At L4-5, bilateral laminectomy, complete facetectomy and foraminotomy was performed as described above. Again, exuberant bone formation was encountered and at this level. There was also a large disc osteophyte complex that was identified once disc space was found. The dura was carefully dissected off this anteriorly and b/l. Once encountered, the disc space was then accessed in a similar fashion and neural elements protected. Intradiscal, 3 column osteotomies, for deformity correction was then performed again at this level as described above. Once completed and complete discectomy performed there was good mobility at this level. Cage was then sized and selected. Autograft and allograft was then placed anterior in the disc space and the cage was then inserted and impacted into place under lateral. AP image, as before, was taken to ensure midline placement. The cage was then expanded into position. This restored height, lordosis and alignment well. The cage was tested and was stable. The wound was irrigated. Meticulous hemostasis then performed. At L3-4, bilateral laminectomy, complete facetectomy and foraminotomy were performed. Again exuberant bone formation noted and encountered along with dural scarring and ligamental cyst formations. The elements were then protected, and disc space accessed. Sequential shaving performed until desired height and lordosis. Cage selected, and graft placed anterior to the cage within the disc space. Cage was then placed under lateral image, expanded and had good height, lordosis and deformity correction. The wound was irrigated, and meticulous hemostasis performed once again. At L2-3, bilateral laminectomy, partial medial facetectomy and foraminotomy were performed with facet cyst removal. The wound was irrigated, and meticulous hemostasis performed. At L1-2, bilateral laminectomy and partial medial facetectomy with foraminotomy were performed along with facet cyst removal at this level. The wound was irrigated, and meticulous hemostasis performed. Attention was then drawn to judy placement. Rods were selected, measured, cut and bent to appropriate lordosis. They were then secured into pelvic screws b/l. Sequential reduction then done into each screw and set screw placed. Set screws were then final tightened and lateral image showed good lordosis reduction and sagittal alignment. The wound was then irrigated with 3L Ancef irrigation, 3L gentamicin irrigation, 3L Irricept through the case and 1L Betadine at the end of the case and 3L NSS. Surgicel was then placed on the dura, which was inspected and had no injury. Then, in the posterolateral gutter was placed, MagnatOs, Autograft and allograft. This was impacted into position and surgical placed over it. 2g Vanco powder was then placed deep in the wound. A deep, subfascial drain was placed and a superficial facial drain placed. We then proceeded with layered closure. #1 PDS placed in the deep fascia. 0 Vicryl placed in the deep subq, 2-0 placed in the superficial subq and kathy placed in the skin. The wound edges approximated very well. The wound was then c leaned with ETOH and dressed with adaptic, 4x4, ABD and tape. Drains sewed into position. IONM confirmed no changes. The patient was then transferred off the [facility] spine table to their hospital bed a-traumatically. Drains continued to hold suction. The patient was then extubated and transferred to the PACU/ICU in stable condition having tolerated the procedure with no complications.
[2024-02-19] MEDS: ACETAMINOPHEN TAB 325 MG TAB PO SCH (23:54)
[2024-02-20] MEDS: ONDANSETRON 4 MG/2 ML VIAL IVP PRN (02:26)
[2024-02-20] MEDS: HYDROmorphone 0.5 MG/0.5 ML SYRINGE IVP PRN (04:13)
[2024-02-20 08:25] LABS: HCT 37.1 % (39.6-50.0); HGB 12.1 g/dL (13.0-17.0); MCHC 32.6 g/dL (32.0-37.0); MCV 92.1 FL (80.0-97.0); NRBC Per 100 WBC 0 X 10*3/uL (0.00-0.01); Platelet Count 231 X 10*3/uL (140-440); RBC 4.03 X 10*6/uL (4.40-5.60); RDW 13.8 % (11.5-14.5); WBC 15.14 X 10*3/uL (4.50-10.00)
[2024-02-20 08:58] LABS: Basophils # (A) 0.02 X 10*3/uL (0.00-0.10); Basophils % (A) 0.1 %; Eosinophils # (A) 0 X 10*3/uL (0.04-0.35); Eosinophils % (A) 0 %; Lymphocytes # (A) 0.65 X 10*3/uL (0.90-5.00); Lymphocytes % (A) 4.3 %; Monocytes # (A) 1.71 X 10*3/uL (0.20-1.00); Monocytes % (A) 11.3 %; Neutrophils # (A) 12.66 X 10*3/uL (1.80-7.70); Neutrophils % (A) 83.6 %
[2024-02-20 09:07] LABS: BUN/Creat Ratio 19.85 Ratio (12.00-20.00); Blood Urea Nitrogen 25.8 mg/dL (9.0-27.0); Calcium 8.2 mg/dL (8.7-10.3); Carbon Dioxide 19.7 mmol/L (21.6-31.8); Chloride 101 mmol/L (96-109); Glucose 237 mg/dL (70-110); Potassium 4.3 mmol/L (3.5-5.5); Sodium 136 mmol/L (135-145)
--- NOTE | 2024-02-20 09:10 | P.PN ---
Subjective Progress Note Date: 02/20/24 Principal diagnosis: 1. L1-S1 severe spondylosis with stenosis 2. L1-L2 facet cyst with severe stenosis 3. L2-L3 facet cyst with severe stenosis 4. L5-S1 and L4-L5 grade 1 spondylolisthesis 5. neurogenic claudication 6. bilateral lower extremity weakness 7. bilateral lower extremity radiculopathy 8. severe low back pain Patient seen and examined this morning. Patient is resting comfortably in bed. Patient does report that his pain is managed on current regimen. He does state that he has increased pain in the lumbar spine with repositioning in bed. Patient does report improvement in his lower extremity radiculopathy since the procedure. He states he has not been out of bed since the procedure. Informed patient that physical therapy will begin to work with him today. Please encourage patient to take oral pain medication prior to therapy. Surgical incision to the lumbar spine,dressing is clean, dry, and intact. Hemovac drain is present and patent. There has been increased output in drain, continue with compression and we will reassess output later this morning to possible have hemovac at half compression. Continue to encourage patient to increase activity as tolerated and to use incentive spirometer 10 times per hour while awake. No acute concerns. Objective - Vital Signs Vital signs: Vital Signs Temp 97.9 F 02/20/24 07:16 Pulse 101 H 02/20/24 07:16 Resp 16 02/20/24 07:16 BP 109/64 02/20/24 07:16 Pulse Ox 91 L 02/20/24 07:16 FiO2 Intake & Output 02/19/24 02/20/24 02/20/24 18:59 06:59 18:59 Intake Total 4102 400 Output Total 1200 1170 Balance 2902 -770 Weight 132.1 kg 132.1 kg Intake: IV 4102 400 Output: Drainage 895 Back 895 Urine 200 275 Estimated Blood Loss 1000 - Exam Physical Examination General: The patient is awake and alert, in no acute distress Skin: Skin is warm and dry with no obvious rashes or lesions. Surgical incision to the lumbar spine, dressing is clean dry and intact. Hemovac drain is present and patent with increased output, will reassess later this morning. Eye: Pupils are equal, round and reactive to light, extra-ocular movements are intact; there is normal conjunctiva bilaterally. Neck: The neck is supple, there is no tenderness and ROM intact. Cardiovascular: There is a regular rate and rhythm. No murmur, rub or gallop is appreciated. Respiratory: Respirations are non-labored, breath sounds are equal. Gastrointestinal: Soft, non-distended, non-tender abdomen. Back: There is no tenderness to palpation in the midline, paralumbar, parathoracic or buttocks region. There is no obvious deformity . Musculoskeletal: ROM limited secondary to pain and stiffness from surgical procedure. Right: Shoulder abduction 5/5, elbow flexors 5/5, w rist dorsiflexors 5/5. finger abductor 5/5, health and safety director 5/5, hip flexor 4/5, knee flexor 4/5, ankle dorsiflexor 4/5, ankle plantarflexion 4/5 and extensor hallucis 5/5. Left: Shoulder abduction 5/5, elbow flexors 5/5, wrist dorsiflexors 5/5. finger abductor 5/5, health and safety director 5/5, hip flexor 4/5, knee flexor 4/5, ankle dorsiflexor 4/5, ankle plantarflexion 4/5 and extensor hallucis 5/5. Neurological: CN 2-12 intact. There are no obvious motor or sensory deficits. Movement and coordination equal and intact. Sensory exam to light touch intact C5-T1 and intact from L2-S1. Reflexes 2/4 in bilateral upper and lower extremities. Negative Hoffmans, babinski, and clonus signs. Psychiatric: Cooperative, appropriate mood & affect, normal judgment. - Labs CBC & Chem 7: 02/20/24 03:20 Assessment and Plan Assessment: Postop day 1: I4tdodcs decompression and fusion with SI screws and L1-S1 jerry ctomy Plan: -Appreciate documentation consultant and team management. -Activity: Ambulate QID, OOB all meals, up and about, limit lifting bending twisting to less than 5 lbs. Use walker or cane if needed for stability. -Daily PT/OT, increase ambulation strength and balance. -Brace when up and about, not needed in bed or chair -Patient reports that he has a brace at home and family will bring in. -Pain control: Adequate at this time -Meds: reviewed -GI ppx: senna, Miralax -DC loya when up and about, bedside commode if needed -DVT PPX: TEDS, SCDs -Hygiene: Maintain incision clean and dry. May change dressing as needed, please document in notes if performed. Meticulous cleaning after BMs away from the incision site -Drains: Maintain for now. Continue to monitor and record output q shift. -Encourage IS 10x/hr -Dispo: Clinically pending. *I reviewed and discussed this case with my attending Dr. Devries, whom has reviewed this chart and films and is in agreement with assessment and plan of care as outlined above. I have personally seen and examined the patient, performed the documentation and the assessment and plan as written. Number of minutes spent on the visit: 20m.
--- NOTE | 2024-02-20 13:05 | CT ---
EXAMINATION TYPE: CT lumbar spine wo con DATE OF EXAM: 02/20/2024 1:36 AM COMPARISON: Adrenal CT 07/28/2022. CLINICAL INDICATION: Male, 73 years old with history of s/p L2-pelvis decompression fusion, s/p L2-pe lvis decompression fusion, TECHNIQUE: Contiguous axial scanning of the lumbar spine without IV contrast. Coronal and sagittal re constructions performed. CT DLP: 2204.7 mGycm, Automated exposure control for dose reduction was used. FINDINGS: 5.9 cm cyst posterior right liver lobe. Low attenuation of the hepatic parenchyma compatible with fat ty infiltration. As a heterogeneous round mass of the right adrenal gland measuring 4.9 cm showing internal foci of ca lcification as well as internal foci of fat density. Given relative stability from 07/28/2022 and the density characteristics, findings favored to represent an adrenal myelolipoma. Again, consider follow -up every 2 years. Sigmoid diverticulosis. Recent postoperative changes with placement of L2-S1 posterior and interbody fusion. Additional fusio n extends across the SI joints into the pelvis. Wide laminectomies along the fused levels. There is dish noted in the lower thoracic spine. Vertebral body heights are preserved. Overall alignment is maintained. Foci of air in the posterior soft tissues as well as the laminectomy bed and dorsal epidural space re lating to operation. Surgical drain is in place. There may be some persistent at least moderate neuroforaminal stenosis on both sides at L5-S1 and on the left at L4-L5. Mild on the right at L4-L5. IMPRESSION: RECENT POSTOPERATIVE CHANGES WITH L2-PELVIC POSTERIOR FUSION. CORRESPONDING WIDE LAMINECTOMIES. SINAI LINARES ABOVE. [facility], , 02/20/2024 1:02 PM
[2024-02-20] MEDS: SENNOSIDES-DOCUSATE SODIUM 1 EACH TAB PO SCH (15:22)
--- NOTE | 2024-02-20 15:27 | P.CONS ---
History of Present Illness - Reason for Consult Consult date: 02/20/24 Medical management, status post L2lcfare decompression and fusion with galeas - History of Present Illness This is a pleasant 73-year-old male who was admitted under orthopedic services status post H0eysgoi decompression and fusion with S1 screws and L1-S1 laminectomy, postop day 1. Patient follows with Dr. Tim in the outpatient setting with a past medical history of hyperlipidemia, hypertension, musculoskeletal disorder, osteoarthritis, hypothyroidism, chronic back pain, depression, former smoker quit earlier this year, denies any alcohol or illicit drug use. Labs reviewed from this morning reveal an elevated white count of 15.14, likely reactive as patient is afebrile, hemoglobin is 12.1, platelets are 231, sodium 136, potassium 4.3, BUN 25.8 with a creatinine of 1.3. Patient is awaiting to work with physical therapy and recommend incentive spirometer use. Home medications reviewed and resumed as appropriate. Will hold blood pressure medications at this time and monitor closely as patient blood pressures are currently normotensive. REVIEW OF SYSTEMS: CONSTITUTIONAL: No fever, no malaise, no fatigue. HEENT: No recent visual problems or hearing problems. Denied any sore throat. CARDIOVASCULAR: No chest pain, orthopnea, PND, no palpitations, no syncope. PULMONARY: No shortness of breath, no cough, no hemoptysis. GASTROINTESTINAL: No diarrhea, no nausea, no vomiting, no abdominal pain. Reports frequently gets constipation and has issues with bowel movements NEUROLOGICAL: No headaches, no weakness, no numbness. HEMATOLOGICAL: Denies any bleeding or petechiae. GENITOURINARY: Denies any burning micturition, frequency, or urgency. MUSCULOSKELETAL/RHEUMATOLOGICAL: Reports some back discomfort and difficulty in repositioning ENDOCRINE: Denies any polyuria or polydipsia. The rest of the 14-point review of systems is negative. PHYSICAL EXAMINATION: GENERAL: The patient is alert and oriented x3. Well developed, elderly appearing, morbidly obese HEENT: Pupils are round and equally reacting to light. EOMI. No scleral icterus. No conjunctival pallor. Normocephalic, atraumatic. No pharyngeal erythema. No thyromegaly. CARDIOVASCULAR: S1 and S2 muffled PULMONARY: Diminished breath sounds bilaterally otherwise chest is clear to auscultation, no wheezing or crackles. ABDOMEN: Soft, obese, nontender, nondistended, normoactive bowel sounds. No palpable organomegaly. MUSCULOSKELETAL: No joint swelling or deformity. EXTREMITIES: No cyanosis, clubbing, or pedal edema. Lower back discomfort, surgical dressing is dry and intact, deferred to orthopedics NEUROLOGICAL: Gross neurological examination did not reveal any focal deficits. Diffusely weak SKIN: No rashes. Assessment: Status post B2ryzxgi decompression and fusion with L1-S1 laminectomy, postop day 1 Mild leukocytosis, likely reactive is patient does not appear infectious, denies any cough, shortness of breath, or pain or frequency with urination, afebrile History of osteoarthritis History of hyperlipidemia History of hypertension Hypothyroidism Chronic back pain History of depression Former smoker Morbid obesity with a BMI of 40.6 GI prophylaxis DVT prophylaxis Full code Plan: Patient admitted under orthopedic services status post decompression and fusion with laminectomy as mentioned above Home medications reviewed and resumed and recommend holding blood pressure medications including amlodipine and losartan for now as patient is currently normotensive Follow-up on labs and recommend repeat CBC to monitor for any signs of infection Strongly recommend bowel regimen scheduled as well as as needed as patient reports has difficulty with constipation frequently Encourage incentive spirometer use at least 10 times every hour while awake Awaiting to work with PT/OT therapy for further evaluation Patient was instructed to keep his follow-up appointment with Dr. Tim next week and also informed him that his office has moved. Address was provided on discharge tab We will continue to follow with orthopedics during hospitalization. Thank you kindly for this consultation. The impression and plan of care has been dictated by Farzaneh Vu, Nurse Practitioner as directed. Dr. Manda MD I have performed a history and examination and MDM of this patient, discussed the same with the dictator, and agree with the dictator's assessment and plan as written ,documented as a scribe. Based on total visit time, I have performed more than 50% of the visit. Past Medical History Past Medical History: Hyperlipidemia, Hypertension, Musculoskeletal Disorder, Osteoarthritis (OA), Thyroid Disorder Additional Past Medical History / Comment(s): Pre-Diabetic, hx gout, lumbar spinal stenosis with pain, nerve pain, tingling and numbness in hands and feet, COVID JUNE 2021. History of Any Multi-Drug Resistant Organisms: MRSA Year Discovered:: 2012 MDRO Source:: left hip Past Surgical History: Joint Replacement, Orthopedic Surgery Additional Past Surgical History / Comment(s): Total left hip replacement - surgery X4 due to MRSA, cyst removed from forehead, right knee surgery with plate (chondrosarcoma), pain procedures. Past Anesthesia/Blood Transfusion Reactions: Family History of Problems w/ Anesthesia, Motion Sickness Additional Past Anesthesia/Blood Transfusion Reaction / Comm: "Nephew went into anaphylactic shock, he was allergic to it." Patient states never heard of malignant hyperthermia. Past Psychological History: Depression Additional Psychological History / Comment(s): Mild depression at times. Smoking Status: Former smoker Past Alcohol Use History: None Reported Additional Past Alcohol Use History / Comment(s): Smoked 1ppd from age 20, quit 06/27/23. Past Drug Use History: None Reported - Past Family History Mother Family Medical History: Myocardial Infarction (MS) Medications and Allergies Home Medications Medication Instructions Recorded Confirmed Type Levothyroxine Sodium [Synthroid] 75 mcg PO HS 12/08/16 02/15/24 History Colchicine 0.6 mg PO DIRECTED PRN 01/12/21 02/19/24 History traZODone HCL 50 mg PO HS 01/12/21 02/15/24 History Losartan/Hydrochlorothiazide 1 tab PO HS 11/14/21 02/15/24 History [Losartan-Hctz 100-25 mg Tab] amLODIPine BESYLATE 2.5 mg PO HS 02/15/24 02/15/24 History Allergies Allergy/AdvReac Type Severity Reaction Status Date / Time bupropion [From Zyban] Allergy Rash/Hives Verified 02/15/24 11:03 diclofenac [From Arthrotec] Allergy Anaphylaxis, Verified 02/15/24 11:03 TROUBLE BREATH misoprostol [From Arthrotec] Allergy Anaphylaxis Verified 02/15/24 11:03 Nwtecvq-DHX-NtX Reductase AdvReac muscle pain Verified 02/15/24 11:03 Inhibitor [Mnemmpl-Pgc-Wcw Reductase Inhibitor] Physical Exam Vitals: Vital Signs Temp Pulse Resp BP Pulse Ox 02/20/24 09:30 92 L 02/20/24 07:16 97.9 F 101 H 16 109/64 91 L 02/20/24 02:00 97.5 F L 94 100/63 97 02/20/24 00:20 86 91/60 95 02/19/24 23:26 91 102/62 12/03/24 23:11 89 90/60 02/19/24 22:56 90 108/62 96 02/19/24 22:25 91 99 02/19/24 22:11 90 90/57 98 02/19/24 21:55 88 95/62 98 02/19/24 21:40 93 106/70 98 02/19/24 21:25 96 115/69 95 02/19/24 20:55 88 107/69 98 02/19/24 20:40 98.6 F 87 92/62 97 02/19/24 20:10 88 104/71 100 02/19/24 19:45 99 16 105/60 100 02/19/24 19:30 96 16 123/54 98 02/19/24 19:15 96 16 97/57 96 02/19/24 19:09 103/58 02/19/24 19:00 81 16 89/51 97 02/19/24 18:45 98 16 95/50 98 02/19/24 18:30 98 F 95 16 98/54 98 02/19/24 10:51 96.5 F L 100 22 150/83 96 Intake and Output 02/19/24 02/20/24 02/20/24 22:59 06:59 14:59 Intake Total 1400 Output Total 1700 670 Balance -300 -670 Intake: IV 1400 Output: Drainage 500 395 Back 500 395 Urine 200 275 Estimated Blood Loss 1000 Other: Weight 132.1 kg Results CBC & Chem 7: 02/20/24 03:20 02/20/24 03:20 Labs: Abnormal Lab Results - Last 24 Hours (Table) 02/20/24 02/20/24 Range/Units 03:20 03:20 WBC 15.14 H (4.50-10.00) X 10*3/uL RBC 4.03 L (4.40-5.60) X 10*6/uL Hgb 12.1 L (13.0-17.0) g/dL Hct 37.1 L (39.6-50.0) % Immature Gran # 0.10 H (0.00-0.04) X 10*3/uL Neutrophils # 12.66 H (1.80-7.70) X 10*3/uL Lymphocytes # 0.65 L (0.90-5.00) X 10*3/uL Monocytes # 1.71 H (0.20-1.00) X 10*3/uL Eosinophils # 0 L (0.04-0.35) X 10*3/uL Carbon Dioxide 19.7 L (21.6-31.8) mmol/L Anion Gap 15.30 H (4.00-12.00) mmol/L Est GFR (CKD-EPI) 58 L (>=60) Glucose 237 H (70-110) mg/dL Calcium 8.2 L (8.7-10.3) mg/dL
[2024-02-20] MEDS: HYDROmorphone 1 MG/ML 1 ML SYRINGE IVP PRN (16:28)
[2024-02-20] MEDS ORDERED: CALCIUM CARBONATE 500 MG CHEWABLE PO PRN (16:32)
[2024-02-20] MEDS: MAG HYDROX/AL HYDROX/SIMETH 30 ML CUP PO PRN (16:49)
[2024-02-20] MEDS: PANTOPRAZOLE 40 MG/10 ML VIAL IVP ONE (16:50)
[2024-02-20] MEDS: traZODone HCL 50 MG TAB PO SCH (20:02)
[2024-02-20] MEDS: polyethylene glycoL 3350 17 GM POWD.PACK PO SCH (20:02)
[2024-02-20] MEDS: LEVOTHYROXINE 75 MCG TAB PO SCH (20:02)
[2024-02-21] MEDS: PANTOPRAZOLE 40 MG TABLET PO SCH (08:44)
[2024-02-21] MEDS ORDERED: oxyCODONE-APAP 7.5-325MG 1 EACH TAB PO PRN (14:09)
--- NOTE | 2024-02-21 14:11 | P.PN ---
Subjective Progress Note Date: 02/21/24 Principal diagnosis: 1. L1-S1 severe spondylosis with stenosis 2. L1-L2 facet cyst with severe stenosis 3. L2-L3 facet cyst with severe stenosis 4. L5-S1 and L4-L5 grade 1 spondylolisthesis 5. neurogenic claudication 6. bilateral lower extremity weakness 7. bilateral lower extremity radiculopathy 8. severe low back pain Patient was seen at bedside this morning sitting up in chair with dressing present over lumbar spine and drain in place with moderate serosanguineous output. Patient says he feels he is having a decent mount of pain and the oral medication is not helping all that well. He says she has been getting up with therapy walking around the room using his brace. Patient is hoping to stay in the hospital another night for additional therapy and for pain control. Patient says he has urinated since Segal catheter was removed and denies any issues with this. Patient states no bowel movement yet. Patient says he has been passing gas. Patient denies any other orthopedic complaints at this time. Objective - Vital Signs Vital signs: Vital Signs Temp 98.2 F 02/21/24 07:14 Pulse 95 02/21/24 07:14 Resp 15 02/21/24 07:14 BP 129/68 02/21/24 07:14 Pulse Ox 90 L 02/21/24 01:13 FiO2 Intake & Output 02/20/24 02/21/24 02/21/24 18:59 06:59 18:59 Intake Total 240 Output Total 800 2090 Balance -560 -2090 Intake: Intake, IV Titration 240 Amount Lactated Ringers 1,000 ml 240 @ 0 mls/hr IV .[facility][id number] Output: Drainage 350 390 Back 350 390 Urine 450 1700 Other: Voiding Method Indwelling Catheter - Exam General: The patient is awake and alert, in no acute distress Skin: Skin is warm and dry with no obvious rashes or lesions. Surgical dressing changed at bedside this afternoon. Incision appears to be healing well. Trip well aligned and intact. Negative for any active drainage. Drain was removed to gravity. Moderate output in drain. We will reassess daily. Eye: Pupils are equal, round and reactive to light, extra-ocular movements are intact; there is normal conjunctiva bilaterally. Neck: The neck is supple, there is no tenderness and ROM intact. Cardiovascular: There is a regular rate and rhythm. No murmur, rub or gallop is appreciated. Respiratory: Respirations are non-labored, breath sounds are equal. Gastrointestinal: Soft, non-distended, non-tender abdomen. Back: There is no tenderness to palpation in the midline, paralumbar, parathoracic or buttocks region. There is no obvious deformity . Musculoskeletal: ROM limited secondary to pain and stiffness from surgical proc edure. Right: Shoulder abduction 5/5, elbow flexors 5/5, wrist dorsiflexors 5/5. finger abductor 5/5, lubrication servicer 5/5, hip flexor 4/5, knee flexor 4/5, ankle dorsiflexor 4/5, ankle plantarflexion 4/5 and extensor hallucis 5/5. Left: Shoulder abduction 5/5, elbow flexors 5/5, wrist dorsiflexors 5/5. finger abductor 5/5, lubrication servicer 5/5, hip flexor 4/5, knee flexor 4/5, ankle dorsiflexor 4/5, ankle plantarflexion 4/5 and extensor hallucis 5/5. Neurological: CN 2-12 intact. There are no obvious motor or sensory deficits. Movement and coordination equal and intact. Sensory exam to light touch intact C5-T1 and intact from L2-S1. Reflexes 2/4 in bilateral upper and lower extremities. Negative Hoffmans, babinski, and clonus signs. Psychiatric: Cooperative, appropriate mood & affect, normal judgment. - Labs CBC & Chem 7: 02/20/24 03:20 02/20/24 03:20 Assessment and Plan Assessment: 1. L1-S1 severe spondylosis with stenosis 2. L1-L2 facet cyst with severe stenosis 3. L2-L3 facet cyst with severe stenosis 4. L5-S1 and L4-L5 grade 1 spondylolisthesis 5. neurogenic claudication 6. bilateral lower extremity weakness 7. bilateral lower extremity radiculopathy 8. severe low back pain -Postop day #2 status post L2 to pelvis decompression and fusion with pelvic screws and L1-S1 laminectomy Plan: 1. L1-S1 severe spondylosis with stenosis; L1-L2 facet cyst with severe stenosis; L2-L3 facet cyst with severe stenosis; L5-S1 and L4-L5 grade 1 spondylolisthesis; neurogenic claudication; bilateral lower extremity weakness; bilateral lower extremity radiculopathy; severe low back pain -surgery performed 02/19/2024L2 to pelvis decompression and fusion with pelvic screws and L1-S1 laminectomy. Patient still has moderate output in the drain. We have moved drain from full suction to half suction. Maintain drain to half suction. Chart output every 8 hours. Weightbearing as tolerated with walker and brace on while up and about. Dressing was changed at bedside this morning. Pain medication to be adjusted. We will add Percocet 7.5 mg / 325 mg every 6 hours for pain scale 7-10 and change Grace 10 mg/325mg q6h to pain scale 4-6. discharge pending. 2. Appreciate medical management 3. Pain management -Grace; Flexeril; gabapentin 4. DVT prophylaxis - mechanical 5. GI prophylaxis - senna; milk of magnesia 6. PT/OT -weightbearing as tolerated with walker and brace on while up and about 7. Encourage incentive spirometer use 8. Discharge planning -pending Time with Patient: Less than 30
[2024-02-21] MEDS: HYDROcodone/APAP 10-325MG 1 EACH TAB PO PRN (16:05)
--- NOTE | 2024-02-22 09:36 | P.PN ---
Subjective Progress Note Date: 02/21/24 - Reason for Consult Consult date: 02/20/24 Medical management, status post [id number] decompression and fusion with galeas - History of Present Illness This is a pleasant 73-year-old male who was admitted under orthopedic services status post [id number] decompression and fusion with S1 screws and L1-S1 laminectomy, postop day 1. Patient follows with Dr. Tim in the outpatient setting with a past medical history of hyperlipidemia, hypertension, musculoskeletal disorder, osteoarthritis, hypothyroidism, chronic back pain, depression, former smoker quit earlier this year, denies any alcohol or illicit drug use. Labs reviewed from this morning reveal an elevated white count of 15.14, likely reactive as patient is afebrile, hemoglobin is 12.1, platelets are 231, sodium 136, potassium 4.3, BUN 25.8 with a creatinine of 1.3. Patient is awaiting to work with physical therapy and recommend incentive spirometer use. Home medications reviewed and resumed as appropriate. Will hold blood pressure medications at this time and monitor closely as patient blood pressures are currently normotensive. 02/21/2024 Patient is seen in follow-up this morning status post L2 to pelvis decompression and fusion with laminectomy currently sitting up in the chair reports to doing well although continues with severe back pain. Patient reports did not have a bowel movement yet although is passing gas and had Segal catheter removed due to void. Patient is afebrile with no reports of chest pain or shortness of breath. Home medications reviewed and resumed as appropriate and blood pressure remained stable. Patient has been encouraged to increase activity as tolerated and working with physical therapy. Patient reports plan on returning home and has support in the home to help him. Review of systems: Constitutional: No reports of fatigue, fever, or chills Cardiovascular: No reports of chest pain or palpitations Respiratory: No reports of shortness of breath or cough GI: No reports of nausea, vomiting, or diarrhea : No reports of dysuria or retention Neurovascular: reports of generalized weakness and continued lower back pain All medications have been reviewed PHYSICAL EXAMINATION: GENERAL: The patient is alert and oriented x3. Well developed, elderly appearing, morbidly obese HEENT: Pupils are round and equally reacting to light. EOMI. No scleral icterus. No conjunctival pallor. Normocephalic, atraumatic. No pharyngeal erythema. No thyromegaly. CARDIOVASCULAR: S1 and S2 muffled PULMONARY: Diminished breath sounds bilaterally otherwise chest is clear to auscultation, no wheezing or crackles. ABDOMEN: Soft, obese, nontender, nondistended, normoactive bowel sounds. No palpable organomegaly. MUSCULOSKELETAL: No joint swelling or deformity. EXTREMITIES: No cyanosis, clubbing, or pedal edema. Lower back discomfort, surgical dressing is dry and intact, deferred to orthopedics NEUROLOGICAL: Gross neurological examination did not reveal any focal deficits. Diffusely weak SKIN: No rashes. Assessment: Status post [id number] decompression and fusion with L1-S1 laminectomy, postop day 2 Mild leukocytosis, likely reactive is patient does not appear infectious, denies any cough, shortness of breath, or pain or frequency with urination, afebrile History of osteoarthritis History of hyperlipidemia History of hypertension Hypothyroidism Chronic back pain History of depression Former smoker Morbid obesity with a BMI of 40.6 GI prophylaxis DVT prophylaxis Full code Plan: Patient admitted under orthopedic services status post decompression and fusion with laminectomy as mentioned above Home medications reviewed and resumed and recommend holding blood pressure medications including amlodipine and losartan for now as patient is currently normotensive Strongly recommend bowel regimen scheduled as well as as needed as patient reports has difficulty with constipation frequently. Patient is passing gas with no bowel movement as of yet Encourage incentive spirometer use at least 10 times every hour while awake Awaiting to work with PT/OT therapy for further evaluation. Patient reports severe pain when standing up or position changing and is currently sitting up in the chair and reports to feeling as pain is managed while sitting although any moves reports 10/10 pain Patient was instructed to keep his follow-up appointment with Dr. Tim next week and also informed him that his office has moved. Address was provided on discharge tab We will continue to follow with orthopedics during hospitalization. Thank you kindly for this consultation. The impression and plan of care has been dictated by Farzaneh Vu, Nurse Practitioner as directed. Dr. Manda MD I have performed a history and examination and MDM of this patient, discussed the same with the dictator, and agree with the dictator's assessment and plan as written ,documented as a scribe. Based on total visit time, I have performed more than 50% of the visit. Objective - Vital Signs Vital signs: Vital Signs Temp 98.2 F 02/21/24 07:14 Pulse 95 02/21/24 07:14 Resp 15 02/21/24 07:14 BP 129/68 02/21/24 07:14 Pulse Ox 90 L 02/21/24 01:13 FiO2 Intake & Output 02/20/24 02/21/24 02/21/24 18:59 06:59 18:59 Intake Total 240 Output Total 800 2090 Balance -560 -2090 Intake: Intake, IV Titration 240 Amount Lactated Ringers 1,000 ml 240 @ 0 mls/hr IV .[facility] Rx#:[id number] Output: Drainage 350 390 Back 350 390 Urine 450 1700 Other: Voiding Method Indwelling Catheter - Labs CBC & Chem 7: 02/20/24 03:20 02/20/24 03:20
[2024-02-22 11:44] LABS: HCT 27.4 % (39.0-53.0); HGB 9.3 gm/dL (13.0-17.5); MCH 30.4 pg (25.0-35.0); MCHC 34.1 g/dL (31.0-37.0); MCV 89.4 fL (80.0-100.0); Mean Platelet Volume 7.8; Platelet Count 198 k/uL (150-450); RBC 3.07 m/uL (4.30-5.90); RDW 14.2 % (11.5-15.5); WBC 9.2 k/uL (3.8-10.6)
--- NOTE | 2024-02-22 11:55 | P.PN ---
Subjective Progress Note Date: 02/22/24 Principal diagnosis: 1. L1-S1 severe spondylosis with stenosis 2. L1-L2 facet cyst with severe stenosis 3. L2-L3 facet cyst with severe stenosis 4. L5-S1 and L4-L5 grade 1 spondylolisthesis 5. neurogenic claudication 6. bilateral lower extremity weakness 7. bilateral lower extremity radiculopathy 8. severe low back pain Patient was seen at bedside this morning sitting up in chair with dressing present over lumbar spine and drain in place with moderate serosanguineous output. Patient says he is still in a decent mount of pain however he does note improvement in pain since yesterday.. He says she has been getting up with therapy walking around the room using his brace. Patient is hoping to stay in the hospital another night for additional therapy and for pain control. Patient says he has urinated since Segal catheter was removed and denies any issues with this. Patient states no bowel movement yet. Patient says he has been passing gas. Patient denies any other orthopedic complaints at this time. Objective - Vital Signs Vital signs: Vital Signs Temp 98.5 F 02/22/24 07:34 Pulse 98 02/22/24 07:34 Resp 18 02/22/24 07:34 BP 112/68 02/22/24 07:34 Pulse Ox 97 02/22/24 07:34 FiO2 Intake & Output 02/21/24 02/22/24 02/22/24 18:59 06:59 18:59 Output Total 1000 2210 Balance -1000 -2210 Output: Drainage 200 160 Back 200 160 Urine 800 2050 Other: Voiding Method Indwelling Catheter - Exam General: The patient is awake and alert, in no acute distress Skin: Skin is warm and dry with no obvious rashes or lesions. Surgical dressing appears to be clean, dry, intact. incision appears to be healing well. [place] well aligned and intact. Negative for any active drainage. Drain was moved to gravity. Moderate output in drain. We will reassess daily. Eye: Pupils are equal, round and reactive to light, extra-ocular movements are intact; there is normal conjunctiva bilaterally. Neck: The neck is supple, there is no tenderness and ROM intact. Cardiovascular: There is a regular rate and rhythm. No murmur, rub or gallop is appreciated. Respiratory: Respirations are non-labored, breath sounds are equal. Gastrointestinal: Soft, non-distended, non-tender abdomen. Back: There is no tenderness to palpation in the midline, paralumbar, parathoracic or buttocks region. There is no obvious deformity . Musculoskeletal: ROM limited secondary to pain and stiffness from surgical procedure. Right: Shoulder abduction 5/5, elbow flexors 5/5, wrist dorsiflexors 5/5. finger abductor 5/5, bulk coolers installer 5/5, hip flexor 4/5, knee flexor 4/5, ankle dorsiflexor 4/5, ankle plantarflexion 4/5 and extensor hallucis 5/5. Left: Shoulder abduction 5/5, elbow flexors 5/5, wrist dorsiflexors 5/5. finger abductor 5/5, bulk coolers installer 5/5, hip flexor 4/5, knee flexor 4/5, ankle dorsiflexor 4/5, ankle plantarflexion 4/5 and extensor hallu cis 5/5. Neurological: CN 2-12 intact. There are no obvious motor or sensory deficits. Movement and coordination equal and intact. Sensory exam to light touch intact C5-T1 and intact from L2-S1. Reflexes 2/4 in bilateral upper and lower extremities. Negative Hoffmans, babinski, and clonus signs. Psychiatric: Cooperative, appropriate mood & affect, normal judgment. - Labs CBC & Chem 7: 02/22/24 11:02 02/20/24 03:20 Assessment and Plan Assessment: 1. L1-S1 severe spondylosis with stenosis 2. L1-L2 facet cyst with severe stenosis 3. L2-L3 facet cyst with severe stenosis 4. L5-S1 and L4-L5 grade 1 spondylolisthesis 5. neurogenic claudication 6. bilateral lower extremity weakness 7. bilateral lower extremity radiculopathy 8. severe low back pain -Postop day #3 status post L2 to pelvis decompression and fusion with pelvic screws and L1-S1 laminectomy Plan: 1. L1-S1 severe spondylosis with stenosis; L1-L2 facet cyst with severe stenosis; L2-L3 facet cyst with severe stenosis; L5-S1 and L4-L5 grade 1 spondylolisthesis; neurogenic claudication; bilateral lower extremity weakness; bilateral lower extremity radiculopathy; severe low back pain -surgery performed 02/19/2024L2 to pelvis decompression and fusion with pelvic screws and L1-S1 laminectomy. Patient still has moderate output in the drain. We have moved drain from full suction to gravity. Maintain drain to gravity. Chart output every 8 hours. Weightbearing as tolerated with walker and brace on while up and about. Pain medication to be adjusted. Percocet 7.5 mg / 325 mg every 6 hours for pain scale 7-10 and change [place] 10 mg/325mg q6h to pain scale 4-6. Plan for discharge home tomorrow. 2. Appreciate medical management 3. Pain management -[place]; Flexeril; gabapentin 4. DVT prophylaxis - mechanical 5. GI prophylaxis - senna; milk of magnesia 6. PT/OT -weightbearing as tolerated with walker and brace on while up and about 7. Encourage incentive spirometer use 8. Discharge planning - plan for discharge home tomorrow Time with Patient: Less than 30
[2024-02-22] MEDS: LACTULOSE 20 GM/30 ML CUP PO PRN (12:27)
[2024-02-23 03:18] VITALS: PULSE 95; RESP 16
--- NOTE | 2024-02-23 07:50 | P.PN ---
Subjective Progress Note Date: 02/22/24 - Reason for Consult Consult date: 02/20/24 Medical management, status post [id number] decompression and fusion with galeas - History of Present Illness This is a pleasant 73-year-old male who was admitted under orthopedic services status post [id number] decompression and fusion with S1 screws and L1-S1 laminectomy, postop day 1. Patient follows with Dr. Tim in the outpatient setting with a past medical history of hyperlipidemia, hypertension, musculoskeletal disorder, osteoarthritis, hypothyroidism, chronic back pain, depression, former smoker quit earlier this year, denies any alcohol or illicit drug use. Labs reviewed from this morning reveal an elevated white count of 15.14, likely reactive as patient is afebrile, hemoglobin is 12.1, platelets are 231, sodium 136, potassium 4.3, BUN 25.8 with a creatinine of 1.3. Patient is awaiting to work with physical therapy and recommend incentive spirometer use. Home medications reviewed and resumed as appropriate. Will hold blood pressure medications at this time and monitor closely as patient blood pressures are currently normotensive. 02/21/2024 Patient is seen in follow-up this morning status post L2 to pelvis decompression and fusion with laminectomy currently sitting up in the chair reports to doing well although continues with severe back pain. Patient reports did not have a bowel movement yet although is passing gas and had Segal catheter removed due to void. Patient is afebrile with no reports of chest pain or shortness of breath. Home medications reviewed and resumed as appropriate and blood pressure remained stable. Patient has been encouraged to increase activity as tolerated and working with physical therapy. Patient reports plan on returning home and has support in the home to help him. 02/22/2024 Patient is seen in follow-up today reports continued back pain with movement although has been attempting to get up a little more frequently. Patient reports to passing gas although no bowel movement as of yet. Recommend lactulose scheduled until having bowel movements. Continue using incentive spirometer at least 10 times every hour while awake and recommend sitting up more frequently in the chair. Review of systems: Constitutional: No reports of fatigue, fever, or chills Cardiovascular: No reports of chest pain or palpitations Respiratory: No reports of shortness of breath or cough GI: No reports of nausea, vomiting, or diarrhea, reports passing gas with no bowel movement as of yet : No reports of dysuria or retention Neurovascular: reports of generalized weakness and continued lower back pain All medications have been reviewed PHYSICAL EXAMINATION: GENERAL: The patient is alert and oriented x3. Well developed, elderly appearing, morbidly obese HEENT: Pupils are round and equally reacting to light. EOMI. No scleral icterus. No conjunctival pallor. Normocephalic, atraumatic. No pharyngeal erythema. No thyromegaly. CARDIOVASCULAR: S1 and S2 muffled PULMONARY: Diminished breath sounds bilaterally otherwise chest is clear to auscultation, no wheezing or crackles. ABDOMEN: Soft, obese, nontender, nondistended, normoactive bowel sounds. No palpable organomegaly. MUSCULOSKELETAL: No joint swelling or deformity. EXTREMITIES: No cyanosis, clubbing, or pedal edema. Lower back discomfort, surgical dressing is dry and intact, deferred to orthopedics NEUROLOGICAL: Gross neurological examination did not reveal any focal deficits. Diffusely weak SKIN: No rashes. Assessment: Status post [id number] decompression and fusion with L1-S1 laminectomy Mild leukocytosis, likely reactive is patient does not appear infectious, denies any cough, shortness of breath, or pain or frequency with urination, afebrile, resolved and normalized History of osteoarthritis History of hyperlipidemia History of hypertension Hypothyroidism Chronic back pain History of depression Former smoker Morbid obesity with a BMI of 40.6 GI prophylaxis DVT prophylaxis Full code Plan: Patient admitted under orthopedic services status post decompression and fusion with laminectomy as mentioned above Home medications reviewed and resumed and recommend holding blood pressure medications including amlodipine and losartan for now as patient is currently normotensive Strongly recommend bowel regimen scheduled as well as as needed as patient reports has difficulty with constipation frequently. Patient is passing gas with no bowel movement as of yet Encourage incentive spirometer use at least 10 times every hour while awake Patient reports severe pain when standing up or position changing and is currently sitting up in the chair and reports to feeling as pain is managed while sitting although any moves reports 10/10 pain. Recommend increased activity with restrictions per orthopedics and working with physical therapy daily Patient was instructed to keep his follow-up appointment with Dr. Tim next week and also informed him that his office has moved. Address was provided on discharge tab We will continue to follow with orthopedics during hospitalization. Thank you kindly for this consultation. The impression and plan of care has been dictated by Farzaneh Vu, Nurse Practitioner as directed. Dr. Dianna MD I have performed a history and examination and MDM of this patient, discussed the same with the dictator, and agree with the dictator's assessment and plan as written ,documented as a scribe. Based on total visit time, I have performed more than 50% of the visit. Objective - Vital Signs Vital signs: Vital Signs Temp 98.5 F 02/22/24 07:34 Pulse 98 02/22/24 07:34 Resp 18 02/22/24 07:34 BP 112/68 02/22/24 07:34 Pulse Ox 97 02/22/24 07:34 FiO2 Intake & Output 02/21/24 02/22/24 02/22/24 18:59 06:59 18:59 Output Total 1000 2210 Balance -1000 -2210 Output: Drainage 200 160 Back 200 160 Urine 800 2050 Other: Voiding Method Indwelling Catheter - Labs CBC & Chem 7: 02/22/24 11:02 02/20/24 03:20
[2024-02-23 08:00] VITALS: BP 136/75; TEMP 99.7
--- NOTE | 2024-02-23 09:37 | P.DS ---
Providers Date of admission: 02/19/24 10:06 Expected date of discharge: 02/23/24 Attending physician: Sheng Devries DO Consults: 02/19/24 18:25 Consult Physician Routine Consulting Provider: John Tim Consult Reason/Comments: medical management s/p L2-pelvis decompression fusion Do you want consulting provider notified?: Yes Primary care physician: John Tim Hospital Course: Date of admission: 02/19/2024 Date of discharge: 02/23/2024 Admission diagnosis: L1-S1 severe spondylosis with stenosis; L1-L2 facet cyst with severe stenosis; L2-L3 facet cyst with severe stenosis; L5-S1 and L4-L5 grade 1 spondylolisthesis; neurogenic claudication; bilateral lower extremity weakness; bilateral lower extremity radiculopathy; severe low back pain Discharge diagnosis: Same Attending physician: Dr. Devries Surgical procedures: L2 to pelvis decompression and fusion with pelvic screws and L1-S1 laminectomy. Brief history: Patient is a 73-year-old male with a history of L1-S1 severe spondylosis with stenosis; L1-L2 facet cyst with severe stenosis; L2-L3 facet cyst with severe stenosis; L5-S1 and L4-L5 grade 1 spondylolisthesis; neurogenic claudication; bilateral lower extremity weakness; bilateral lower extremity radiculopathy; severe low back pain. At this point patient has failed conservative treatment measures and has opted to proceed with a elective L2 to pelvis decompression and fusion with pelvic screws and L1-S1 laminectomy. Hospital course: Details of patient's surgery can be found in operative report. Patient tolerated the procedure well and was subsequently transported to orthopedic floor. Patient's orthopeidc and medical care was provided daily. Patient had daily laboratory tests performed for evaluation of overall blood counts. Patient had daily physical therapy to include strengthening range of motion as well as education with walker ambulation. Patient was noted to have a relatively uneventful postoperative course. Patient reported satisfactory pain control with oral pain medications by postoperative day 4. Patient showed satisfactory progress with physical therapy. Patient moved steadily through the program and had no difficulty meeting the goals by postoperative day 4. Given patient's otherwise satisfactory course and having met physical therapy goals, plan is to discharge patient home on postoperative day 4. Discharge condition/disposition: Patient will be discharged home in stable condition. Discharge medications: Instructions are given on resumption of patient's normal daily medications per primary care recommendation, in addition patient will be prescribed Elizabeth; gabapentin; Flexeril; senna; Duricef Spine Discharge and Recovery Instructions Date of Surgery: 02/23/2024 Diagnosis: L1-S1 severe spondylosis with stenosis; L1-L2 facet cyst with severe stenosis; L2-L3 facet cyst with severe stenosis; L5-S1 and L4-L5 grade 1 spondylolisthesis; neurogenic claudication; bilateral lower extremity weakness; bilateral lower extremity radiculopathy; severe low back pain Procedure: L2 to pelvis decompression and fusion with pelvic screws and L1-S1 laminectomy Medications: See medication list All medication refills should be obtained through your primary care doctor or your clinic spine surgeon. Please discuss prescription refills at your follow up appointment. Do not call the hospital for medication refills. Dressing: Leave your dressing in place for a total of 5 days post operatively. Then you may remove your dressing and leave open to air. Keep the area clean and if not able to keep area clean, then cover with sterile gauze and tape. Showering: You may shower 3 days after your procedure allowing soap and water to run over incision. Do not scrub. Do not soak. Blot dry. Follow up: Please confirm a follow up appointment with your surgeon 3 weeks post operatively. Please make an appointment to follow up with your PCP in 1-2 weeks after surgery for evaluation '3 phase, 3-week plan' POST OP WEEKS 1-3 1. Lifting/carrying/pushing/pulling limited to less than 5 pounds. 2. Do not sit for longer than 15 minutes at one time. Get up and walk around. Prolonged sitting is NOT advised. If you lay down, see if you can tolerate laying down on you front (belly side) 3. Walk for periods of 15 minutes = 1 mile but no longer; do it multiple times times each day. 4. Ice your low back after activity. POST OP WEEKS 3-6 1. Lifting limited to less than 20 pounds. 2. Do not sit for longer than 30 minutes at a time. Frequently change positions. Use a sit-to stand workstation or take frequent breaks from sitting if you have returned to work. 3. Walk for 30 minutes each day. If possible, do these three or more times a day POST OP WEEKS 6+ At your 6-week appointment we will give you a physical therapy referral to focus on a core stabilization and strengthening program. You should also work on leg & buttock strengthening, hamstring & quadriceps stretching, and continue a low impact aerobic activity program such as swimming, walking, or riding a stationary bicycle. During the initial 6 weeks after your surgery, you are at the highest risk of re-injuring your spine. You should generally avoid BLT's (bending, lifting and twisting combination motions) and follow the above guidelines to reduce the chance of reinjury. You can anticipate post op appointments in our office at approximately 3 weeks and 6 weeks after your surgery. INCISION CARE: If your incision is not draining you do NOT need to cover it with a dressing. Keep your incision clean, dry and intact. In most cases, we apply skin glue, kathy or sutures to the incision at the time of surgery. This will be like a crust or have the appearance of a scab and will fall off in time on its own. The stitches or kathy need to be removed at 3 weeks post op appointment. You may begin to shower 3 days after surgery (this allows the glue to carr well). However, please avoid scrubbing the incision site or peeling off any of the skin glue. This will ensure optimal healing of your incision. Also, during this time avoid soaking the incision area in water - this includes swimming pools, hot tubs or baths. No ointments, lotions or oils on the incision until your surgeon allows. Leave kathy, sutures or glue in place. Neurological dysfunction that comes on suddenly can also be a sign of a stroke. Below some common symptoms of a stroke are listed: B - balance difficulty such as sudden onset walking or leaning to one side - NEW E - eye problem such as sudden double vision or trouble seeing on one side - NEW F - Facial weakness or numbness on one side - NEW A - Arm or leg weakness or numbness on one side - NEW S - Slurred speech or difficulty with word finding - NEW T - Time is BRAIN! Call 911 as soon as you recognize these symptoms Diet: Consume a regular diet rich in vegetables and lean protein such as chicken or fish. You should consume in a ratio of approximately 20% fats|40% carbohydrat es|40%protein. Vegetables, sweet potatoes, brown rice or quinoa are examples of good carbohydrates. Chips, white bread, cookies and sweets/sugar are examples of bad carbohydrates. Limit your bad carbs, go wild with good carbs. "Life's Simple 7" Guidelines as per [place] [employer] These will help you reclaim your life after surgery and shipyard painter helper in your recovery, keeping in mind your restrictions. (1) Get Active. Physical activity can help people lose weight, control high blood pressure and cholesterol, feel emotionally better, and sleep better. (2) Control Cholesterol. Avoid a diet high in saturated fat, trans fat, & cholesterol. Limit whole milk & cream, ice cream, butter, egg yolks, processed meats (like sausage and hot dogs), and fatty meats. Choose healthy foods that are low in saturated fat, trans fat and cholesterol which include: Fruits and vegetables, fiber rich grain products (like whole grain pasta and brown rice), lean meat such as chicken, fish, nuts, seeds, and legumes. (3) Eat Better. Eat small portions. Shop at the grocery with a list and do not stray from it. Tips for a healthy diet include: Limit sodium intake to less than 1500mg daily, avoid prepackaged, processed, and fast foods, choose a diet rich in fruits, vegetables, and whole grain, high fiber foods, and limit saturated & cholesterol in your diet. (4) Manage Blood Pressure. If you have high blood pressure, you should have a cuff at home so that you can check your blood pressure regularly. Be sure you have a good cuff. An arm one is generally better than a wrist one. Bring the cuff to a doctor's appointment to validate that the measurements that your cuff are taking are accurate. Take your blood pressure twice daily when you are sitting down and relaxing. Record the numbers in a log and bring this log with you to your doctors' appointments. (5) Lose Weight if your BMI is above 25. A healthy BMI is between 19-25. To calculate Your BMI, you may use a Standard BMI Calculator on the NIH BMI website: <www.nhlbi.nih.gov/guidelines/obesity/BMI/bmicalc.htm>. Weigh oneself daily. If you are overweight, set a goal to lose weight. A pound a week loss if needed is a good target. (6) Reduce Blood Sugar. Limit foods and liquids with "added sugars." (Added sugars include sucrose, fructose, glucose, maltose, dextrose, high fructose corn syrup, corn syrup, concentrated fruit juice and honey). (7) Stop Smoking. If you smoke, quitting smoking is one of the best things that you can do for your health. Smoking increases your risk of heart attack, stroke, and peripheral vascular disease, which is a build-up of plaque in your arteries. Please discard all the cigarettes and lighters in your house. Have a plan for what you will do when you have the urge to smoke. Direct and second- hand smoke shortens your life as well as the lives of your family, friends and others around you. For your health and the health of those around you, please consider quitting! Proper Bending Body Mechanics: Maintain a wide stance with one foot slightly in front of the other. Keep your back straight. Bend utilizing the strength in your hips and knees. Do not bend at the waist. Maintain the lifted object at your waist-level close to your body. Avoid lifting weight that causes immediately pain or pain anywhere in the body afterwards. Smoking/Nicotine If there was ever one thing that you could do to increase your overall health, decrease your risk of cardiovascular problems by about 39% the second you make the choice, it is to STOP SMOKING. Your body's most instant gratification is the second you stop smoking. We have all heard the studies, read the articles but it is true, smoking is extremely bad for your overall health, and moreover it is detrimental to your bone health. Nicotine, IN ANY FORM, kills bone cells, prevents your body from healing fractures, and significantly prolongs healing after surgery. In spine surgery specifically, it increases your risk of not healing your bones to create a fusion and increases your risk of having a revision surgery due to this up to 60%. I know it is hard. I know it feels impossible. But there are ways. Take control of your life. We are here to help you through it. And when you are ready, ask us and we can direct you to help if you desire. Use the START Plan to Quit Smoking (please visit the Helpguide.org website listed below for more information): S = Set a quit date. Choose a date within the next 2 weeks, so you have enough time to prepare without losing your motivation to quit. If you mainly smoke at work, quit on the weekend, so you have a few days to adjust to the change. T = Tell family, friends, and co-workers that you plan to quit. Let your friends and family in on your plan to quit smoking and tell them you need their support and encouragement to stop. Look for a quit irma who wants to stop smoking as well. You can help each other get through the rough times. A = Anticipate and plan for the challenges you'll face while quitting. Most people who begin smoking again do so within the first 3 months. You can help yourself make it through by preparing ahead for common challenges, such as nicotine withdrawal and cigarette cravings. R = Remove cigarettes and other tobacco products from your home, car, and work. Throw away all your cigarettes (no emergency pack!), lighters, ashtrays, and matches. Wash your clothes and freshen up anything that smells like smoke. Shampoo your car, clean your drapes and carpet, and steam your furniture. T = Talk to your doctor about getting help to quit. Your doctor can prescribe medication to help with withdrawal and suggest other alternatives. If you can't see a doctor, you can get many products over the counter at your local pharmacy or grocery store, including the nicotine patch, nicotine lozenges, and nicotine gum. Resources for Quitting Smoking: <https://www.[place].gov/documents/[facility]/Quit_Tobacco_Resources_for_patients_313 480_7.pdf> Supplementation: Take recommended dosages of Vitamin D and Calcium to help fortify your bones and help them to heal. See your health maintenance packet for dosages and recommended levels. DVT/VTE prophylaxis: You will be given compression stockings from the hospital. Wear these daily for the first two weeks after surgery. You may take them off at night. You may be prescribed a medication to help thin your blood. Take this as directed. If you are not prescribed this medication, early and frequent ambulation has been shown to be the best prophylaxis to deep vein thrombosis and sequelae related to this event. Assessment: L1-S1 severe spondylosis with stenosis; L1-L2 facet cyst with severe stenosis; L2-L3 facet cyst with severe stenosis; L5-S1 and L4-L5 grade 1 spondylolisthesis ; neurogenic claudication; bilateral lower extremity weakness; bilateral lower extremity radiculopathy; severe low back pain Procedures: L2 to pelvis decompression and fusion with pelvic screws and L1-S1 laminectomy. Patient Condition at Discharge: Good Plan - Discharge Summary Discharge Rx Participant: Yes New Discharge Prescriptions: New cefaDROXiL [Duricef] 500 mg PO Q12HR 5 Days #10 cap Cyclobenzaprine [Flexeril] 10 mg PO TID #21 tab Gabapentin [Neurontin] 300 mg PO TID #30 cap HYDROcodone/APAP 10-325MG [Elizabeth 10-325] 1 tab PO Q6HR PRN #28 tab PRN Reason: Pain Sennosides/Docusate Sodium [Senna Plus 8.6-50 mg Softgel] 1 each PO DAILY #20 capsule Continue Levothyroxine Sodium [Synthroid] 75 mcg PO HS amLODIPine BESYLATE 2.5 mg PO HS traZODone HCL 50 mg PO HS Losartan/Hydrochlorothiazide [Losartan-Hctz 100-25 mg Tab] 1 tab PO HS Discontinued Colchicine 0.6 mg PO DIRECTED PRN PRN Reason: Gout Discharge Medication List Levothyroxine Sodium [Synthroid] 75 mcg PO HS 12/08/16 [History] traZODone HCL 50 mg PO HS 01/12/21 [History] Losartan/Hydrochlorothiazide [Losartan-Hctz 100-25 mg Tab] 1 tab PO HS 11/14/21 [History] amLODIPine BESYLATE 2.5 mg PO HS 02/15/24 [History] Cyclobenzaprine [Flexeril] 10 mg PO TID #21 tab 02/23/24 [Rx] Gabapentin [Neurontin] 300 mg PO TID #30 cap 02/23/24 [Rx] HYDROcodone/APAP 10-325MG [Elizabeth 10-325] 1 tab PO Q6HR PRN #28 tab 02/23/24 [Rx] Sennosides/Docusate Sodium [Senna Plus 8.6-50 mg Softgel] 1 each PO DAILY #20 capsule 02/23/24 [Rx] cefaDROXiL [Duricef] 500 mg PO Q12HR 5 Days #10 cap 02/23/24 [Rx] Follow up Appointment(s)/Referral(s): John Tim MD [Primary Care Provider] - 1 Week (Keep your scheduled appointment next week with Dr. Tim) [facility], [NON-STAFF] - As Needed ([facility] will call you to schedule your in home nursing, physical therapy, and occupational therapy visits. ) Sheng Devries DO [Doctor of Osteopathic Medicine] - 03/05/24 9:15 am Activity/Diet/Wound Care/Special Instructions: Continue to hold your blood pressure medications until you follow up with Dr Tim as your Blood pressure has been running normal. Continue to use incentive spirometer 10 x an hour while awake. Spine Discharge and Recovery Instructions Date of Surgery: 02/23/2024 Diagnosis: L1-S1 severe spondylosis with stenosis; L1-L2 facet cyst with severe stenosis; L2-L3 facet cyst with severe stenosis; L5-S1 and L4-L5 grade 1 spondylolisthesis; neurogenic claudication; bilateral lower extremity weakness; bilateral lower extremity radiculopathy; severe low back pain Procedure: L2 to pelvis decompression and fusion with pelvic screws and L1-S1 laminectomy Medications: See medication list All medication refills should be obtained through your primary care doctor or your clinic spine surgeon. Please discuss prescription refills at your follow up appointment. Do not call the hospital for medication refills. Dressing: Leave your dressing in place for a total of 5 days post operatively. Then you may remove your dressing and leave open to air. Keep the area clean and if not able to keep area clean, then cover with sterile gauze and tape. Showering: You may shower 3 days after your procedure allowing soap and water to run over incision. Do not scrub. Do not soak. Blot dry. Follow up: Please confirm a follow up appointment with your surgeon 3 weeks post operatively. Please make an appointment to follow up with your PCP in 1-2 weeks after surgery for evaluation '3 phase, 3-week plan' POST OP WEEKS 1-3 1. Lifting/carrying/pushing/pulling limited to less than 5 pounds. 2. Do not sit for longer than 15 minutes at one time. Get up and walk around. Prolonged sitting is NOT advised. If you lay down, see if you can tolerate laying down on you front (belly side) 3. Walk for periods of 15 minutes = 1 mile but no longer; do it multiple times times each day. 4. Ice your low back after activity. POST OP WEEKS 3-6 1. Lifting limited to less than 20 pounds. 2. Do not sit for longer than 30 minutes at a time. Frequently change positions. Use a sit-to stand workstation or take frequent breaks from sitting if you have returned to work. 3. Walk for 30 minutes each day. If possible, do these three or more times a day POST OP WEEKS 6+ At your 6-week appointment we will give you a physical therapy referral to focus on a core stabilization and strengthening program. You should also work on leg & buttock strengthening, hamstring & quadriceps stretching, and continue a low impact aerobic activity program such as swimming, walking, or riding a stationary bicycle. During the initial 6 weeks after your surgery, you are at the highest risk of re-injuring your spine. You should generally avoid BLT's (bending, lifting and twisting combination motions) and follow the above guidelines to reduce the chance of reinjury. You can anticipate post op appointments in our office at approximately 3 weeks and 6 weeks after your surgery. INCISION CARE: If your incision is not draining you do NOT need to cover it with a dressing. Keep your incision clean, dry and intact. In most cases, we apply skin glue, kathy or sutures to the incision at the time of surgery. This will be like a crust or have the appearance of a scab and will fall off in time on its own. The stitches or kathy need to be removed at 3 weeks post op appointment. You may begin to shower 3 days after surgery (this allows the glue to carr well). However, please avoid scrubbing the incision site or peeling off any of the skin glue. This will ensure optimal healing of your incision. Also, during this time avoid soaking the incision area in water - this includes swimming pools, hot tubs or baths. No ointments, lotions or oils on the incision until your surgeon allows. Leave kathy, sutures or glue in place. Neurological dysfunction that comes on suddenly can also be a sign of a stroke. Below some common symptoms of a stroke are listed: B - balance difficulty such as sudden onset walking or leaning to one side - NEW E - eye problem such as sudden double vision or trouble seeing on one side - NEW F - Facial weakness or numbness on one side - NEW A - Arm or leg weakness or numbness on one side - NEW S - Slurred speech or difficulty with word finding - NEW T - Time is BRAIN! Call 911 as soon as you recognize these symptoms Diet: Consume a regular diet rich in vegetables and lean protein such as chicken or fish. You should consume in a ratio of approximately 20% fats|40% carbohydrates|40%protein. Vegetables, sweet potatoes, brown rice or quinoa are examples of good carbohydrates. Chips, white bread, cookies and sweets/sugar are examples of bad carbohydrates. Limit your bad carbs, go wild with good carbs. "Life's Simple 7" Guidelines as per [place] [employer] These will help you reclaim your life after surgery and shipyard painter helper in your recovery, keeping in mind your restrictions. (1) Get Active. Physical activity can help people lose weight, control high blood pressure and cholesterol, feel emotionally better, and sleep better. (2) Control Cholesterol. Avoid a diet high in saturated fat, trans fat, & cholesterol. Limit whole milk & cream, ice cream, butter, egg yolks, processed meats (like sausage and hot dogs), and fatty meats. Choose healthy foods that are low in saturated fat, trans fat and cholesterol which include: Fruits and vegetables, fiber rich grain products (like whole grain pasta and brown rice), lean meat such as chicken, fish, nuts, seeds, and legumes. (3) Eat Better. Eat small portions. Shop at the grocery with a list and do not stray from it. Tips for a healthy diet include: Limit sodium intake to less than 1500mg daily, avoid prepackaged, processed, and fast foods, choose a diet rich in fruits, vegetables, and whole grain, high fiber foods, and limit saturated & cholesterol in your diet. (4) Manage Blood Pressure. If you have high blood pressure, you should have a cuff at home so that you can check your blood pressure regularly. Be sure you have a good cuff. An arm one is generally better than a wrist one. Bring the cuff to a doctor's appointment to validate that the measurements that your cuff are taking are accurate. Take your blood pressure twice daily when you are sitting down and relaxing. Record the numbers in a log and bring this log with you to your doctors' appointments. (5) Lose Weight if your BMI is above 25. A healthy BMI is between 19-25. To calculate Your BMI, you may use a Standard BMI Calculator on the NIH BMI website: <www.nhlbi.nih.gov/guidelines/obesity/BMI/bmicalc.htm>. Weigh oneself daily. If you are overweight, set a goal to lose weight. A pound a week loss if needed is a good target. (6) Reduce Blood Sugar. Limit foods and liquids with "added sugars." (Added sugars include sucrose, fructose, glucose, maltose, dextrose, high fructose corn syrup, corn syrup, concentrated fruit juice and honey). (7) Stop Smoking. If you smoke, quitting smoking is one of the best things that you can do for your health. Smoking increases your risk of heart attack, stroke, and peripheral vascular disease, which is a build-up of plaque in your arteries. Please discard all the cigarettes and lighters in your house. Have a plan for what you will do when you have the urge to smoke. Direct and second- hand smoke shortens your life as well as the lives of your family, friends and others around you. For your health and the health of those around you, please consider quitting! Proper Bending Body Mechanics: Maintain a wide stance with one foot slightly in front of the other. Keep your back straight. Bend utilizing the strength in your hips and knees. Do not bend at the waist. Maintain the lifted object at your waist-level close to your body. Avoid lifting weight that causes immediately pain or pain anywhere in the body afterwards. Smoking/Nicotine If there was ever one thing that you could do to increase your overall health, decrease your risk of cardiovascular problems by about 39% the second you make the choice, it is to STOP SMOKING. Your body's most instant gratification is the second you stop smoking. We have all heard the studies, read the articles but it is true, smoking is extremely bad for your overall health, and moreover it is detrimental to your bone health. Nicotine, IN ANY FORM, kills bone cells, prevents your body from healing fractures, and significantly prolongs healing after surgery. In spine surgery specifically, it increases your risk of not healing your bones to create a fusion and increases your risk of having a revision surgery due to this up to 60%. I know it is hard. I know it feels impossible. But there are ways. Take control of your life. We are here to help you through it. And when you are ready, ask us and we can direct you to help if you desire. Use the START Plan to Quit Smoking (please visit the [employer] website listed below for more information): S = Set a quit date. Choose a date within the next 2 weeks, so you have enough time to prepare without losing your motivation to quit. If you mainly smoke at work, quit on the weekend, so you have a few days to adjust to the change. T = Tell family, friends, and co-workers that you plan to quit. Let your friends and family in on your plan to quit smoking and tell them you need their support and encouragement to stop. Look for a quit irma who wants to stop smoking as well. You can help each other get through the rough times. A = Anticipate and plan for the challenges you'll face while quitting. Most people who begin smoking again do so within the first 3 months. You can help yourself make it through by preparing ahead for common challenges, such as nicotine withdrawal and cigarette cravings. R = Remove cigarettes and other tobacco products from your home, car, and work. Throw away all your cigarettes (no emergency pack!), lighters, ashtrays, and matches. Wash your clothes and freshen up anything that smells like smoke. Shampoo your car, clean your drapes and carpet, and steam your furniture. T = Talk to your doctor about getting help to quit. Your doctor can prescribe medication to help with withdrawal and suggest other alternatives. If you can't see a doctor, you can get many products over the counter at your local pharmacy or grocery store, including the nicotine patch, nicotine lozenges, and nicotine gum. Resources for Quitting Smoking: <https://www.[place].gov/documents/[facility]/Quit_Tobacco_Resources_for_patients_313 480_7.pdf> Supplementation: Take recommended dosages of Vitamin D and Calcium to help fortify your bones and help them to heal. See your health maintenance packet for dosages and recommended levels. DVT/VTE prophylaxis: You will be given compression stockings from the hospital. Wear these daily for the first two weeks after surgery. You may take them off at night. You may be prescribed a medication to help thin your blood. Take this as directed. If you are not prescribed this medication, early and frequent ambulation has been shown to be the best prophylaxis to deep vein thrombosis and sequelae related to this event. Discharge Disposition: HOME SELF-CARE
--- NOTE | 2024-02-23 09:39 | P.PN ---
Subjective Progress Note Date: 02/23/24 Principal diagnosis: 1. L1-S1 severe spondylosis with stenosis 2. L1-L2 facet cyst with severe stenosis 3. L2-L3 facet cyst with severe stenosis 4. L5-S1 and L4-L5 grade 1 spondylolisthesis 5. neurogenic claudication 6. bilateral lower extremity weakness 7. bilateral lower extremity radiculopathy 8. severe low back pain Patient was seen at bedside this morning lying in the semirecumbent position in bed with dressing and drain placed over spine. Patient says he is still in a decent mount of pain however he does note improvement in pain since yesterday. He says he has been getting up with therapy walking around the room using his brace. Patient is looking forward to going home later today. Patient says he has urinated since Segal catheter was removed and denies any issues with this. Patient states no bowel movement yet. Patient says he has been passing gas. Patient denies any other orthopedic complaints at this time. Objective - Vital Signs Vital signs: Vital Signs Temp 99.7 F H 02/23/24 07:12 Pulse 95 02/23/24 07:12 Resp 16 02/23/24 07:12 BP 136/75 02/23/24 07:12 Pulse Ox 95 02/23/24 07:12 FiO2 Intake & Output 02/22/24 02/23/24 02/23/24 18:59 06:59 18:59 Intake Total 1080 Output Total 786 384 0759 Balance -200 840 -1275 Intake: Oral 1080 Output: Drainage 240 Back 240 Urine 200 1275 Other: Voiding Method Indwelling Catheter # Voids 3 - Exam General: The patient is awake and alert, in no acute distress Skin: Skin is warm and dry with no obvious rashes or lesions. Surgical dressing appears to be clean, dry, intact. incision appears to be healing well. Trip well aligned and intact. Negative for any active drainage. Low output in drain. Drain was removed at bedside this morning and dressing placed over the incision. Incision dressing changed and new dressing placed. Eye: Pupils are equal, round and reactive to light, extra-ocular movements are intact; there is normal conjunctiva bilaterally. Neck: The neck is supple, there is no tenderness and ROM intact. Cardiovascular: There is a regular rate and rhythm. No murmur, rub or gallop is appreciated. Respiratory: Respirations are non-labored, breath sounds are equal. Gastrointestinal: Soft, non-distended, non-tender abdomen. Back: There is no tenderness to palpation in the midline, paralumbar, parathoracic or buttocks region. There is no obvious deformity . Musculoskeletal: ROM limited secondary to pain and stiffness from surgical procedure. Right: Shoulder abduction 5/5, elbow flexors 5/5, wrist dorsiflexors 5/5. finger abductor 5/5, steam flattener 5/5, hip flexor 4/5, knee flexor 4/5, ankle dorsiflexor 4/5, ankle plantarflexion 4/5 and extensor hallucis 5/5. Left: Shoulder abduction 5/5, elbow flexors 5/5, wrist dorsiflexors 5/5. finger abductor 5/5, steam flattener 5/5, hip flexor 4/5, knee flexor 4/5, ankle dorsiflexor 4/5, ankle plantarflexion 4/5 and extensor hallucis 5/5. Neurological: CN 2-12 intact. There are no obvious motor or sensory deficits. Movement and coordination equal and intact. Sensory exam to light touch intact C5-T1 and intact from L2-S1. Reflexes 2/4 in bilateral upper and lower ex tremities. Negative Hoffmans, babinski, and clonus signs. Psychiatric: Cooperative, appropriate mood & affect, normal judgment. - Labs CBC & Chem 7: 02/22/24 11:02 02/20/24 03:20 Labs: Abnormal Lab Results - Last 24 Hours (Table) 02/22/24 Range/Units 11:02 RBC 3.07 L (4.30-5.90) m/uL Hgb 9.3 L (13.0-17.5) gm/dL Hct 27.4 L (39.0-53.0) % Assessment and Plan Assessment: 1. L1-S1 severe spondylosis with stenosis 2. L1-L2 facet cyst with severe stenosis 3. L2-L3 facet cyst with severe stenosis 4. L5-S1 and L4-L5 grade 1 spondylolisthesis 5. neurogenic claudication 6. bilateral lower extremity weakness 7. bilateral lower extremity radiculopathy 8. severe low back pain -Postop day #4 status post L2 to pelvis decompression and fusion with pelvic screws and L1-S1 laminectomy Plan: 1. L1-S1 severe spondylosis with stenosis; L1-L2 facet cyst with severe stenosis; L2-L3 facet cyst with severe stenosis; L5-S1 and L4-L5 grade 1 spondylolisthesis; neurogenic claudication; bilateral lower extremity weakness; bilateral lower extremity radiculopathy; severe low back pain -surgery performed 02/19/2024L2 to pelvis decompression and fusion with pelvic screws and L1-S1 laminectomy. Drain removed at bedside this morning. Dressing changed. Weightbearing as tolerated with walker and brace on while up and about. Pain medication as needed. Discharge home today 2. Appreciate medical management 3. Pain management -[place]; Flexeril; gabapentin 4. DVT prophylaxis - mechanical 5. GI prophylaxis - senna; milk of magnesia 6. PT/OT -weightbearing as tolerated with walker and brace on while up and about 7. Encourage incentive spirometer use 8. Discharge planning -discharge home today Time with Patient: Less than 30
--- NOTE | 2024-02-23 14:38 | P.PN ---
Subjective Progress Note Date: 02/23/24 This is a pleasant 73-year-old male who was admitted under orthopedic services status post [id number] decompression and fusion with S1 screws and L1-S1 laminectomy, postop day 1. Patient follows with Dr. Tmi in the outpatient setting with a past medical history of hyperlipidemia, hypertension, musculoske letal disorder, osteoarthritis, hypothyroidism, chronic back pain, depression, former smoker quit earlier this year, denies any alcohol or illicit drug use. Labs reviewed from this morning reveal an elevated white count of 15.14, likely reactive as patient is afebrile, hemoglobin is 12.1, platelets are 231, sodium 136, potassium 4.3, BUN 25.8 with a creatinine of 1.3. Patient is awaiting to work with physical therapy and recommend incentive spirometer use. Home medications reviewed and resumed as appropriate. Will hold blood pressure medications at this time and monitor closely as patient blood pressures are currently normotensive. 02/21/2024 Patient is seen in follow-up this morning status post L2 to pelvis decompression and fusion with laminectomy currently sitting up in the chair reports to doing well although continues with severe back pain. Patient reports did not have a bowel movement yet although is passing gas and had Segal catheter removed due to void. Patient is afebrile with no reports of chest pain or shortness of breath. Home medications reviewed and resumed as appropriate and blood pressure remained stable. Patient has been encouraged to increase activity as tolerated and working with physical therapy. Patient reports plan on returning home and has support in the home to help him. 02/22/2024 Patient is seen in follow-up today reports continued back pain with movement although has been attempting to get up a little more frequently. Patient reports to passing gas although no bowel movement as of yet. Recommend lactulose scheduled until having bowel movements. Continue using incentive spirometer at least 10 times every hour while awake and recommend sitting up more frequently in the chair. 02/23/2024 Patient evaluated today in follow up on the medical floor. Sitting up at the edge of the bed. He is not reporting any shortness of breath or chest pain at this time. He does report significant lower back pain which is worse while he is up ambulating. He is passing gas at this time. Has not had a bowel movement as of yet. Medically he can be discharged home today. Review of systems: Constitutional: No reports of fatigue, fever, or chills Cardiovascular: No reports of chest pain or palpitations Respiratory: No reports of shortness of breath or cough GI: No reports of nausea, vomiting, or diarrhea, reports passing gas with no bowel movement as of yet : No reports of dysuria or retention Neurovascular: reports of generalized weakness and continued lower back pain All medications have been reviewed PHYSICAL EXAMINATION: GENERAL: The patient is alert and oriented x3. Well developed, elderly appearing, morbidly obese HEENT: Pupils are round and equally reacting to light. EOMI. No scleral icterus. No conjunctival pallor. Normocephalic, atraumatic. No pharyngeal erythema. No thyromegaly. CARDIOVASCULAR: S1 and S2 muffled PULMONARY: Diminished breath sounds bilaterally otherwise chest is clear to auscultation, no wheezing or crackles. ABDOMEN: Soft, obese, nontender, nondistended, normoactive bowel sounds. No palpable organomegaly. MUSCULOSKELETAL: No joint swelling or deformity. EXTREMITIES: No cyanosis, clubbing, or pedal edema. Lower back discomfort, surgical dressing is dry and intact, deferred to orthopedics NEUROLOGICAL: Gross neurological examination did not reveal any focal deficits. Diffusely weak SKIN: No rashes. Assessment: Status post [id number] decompression and fusion with L1-S1 laminectomy Mild leukocytosis, likely reactive is patient does not appear infectious, denies any cough, shortness of breath, or pain or frequency with urination, afebrile, resolved and normalized History of osteoarthritis History of hyperlipidemia History of hypertension Hypothyroidism Chronic back pain History of depression Former smoker Morbid obesity with a BMI of 40.6 GI prophylaxis DVT prophylaxis Full code Plan: Patient admitted under orthopedic services status post decompression and fusion with laminectomy as mentioned above Home medications reviewed and resumed and recommend holding blood pressure me dications including amlodipine and losartan for now as patient is currently normotensive Strongly recommend bowel regimen scheduled as well as as needed as patient reports has difficulty with constipation frequently. Patient is passing gas with no bowel movement as of yet Encourage incentive spirometer use at least 10 times every hour while awake Patient reports severe pain when standing up or position changing and is currently sitting up in the chair and reports to feeling as pain is managed w hile sitting although any moves reports 10/10 pain. Recommend increased activity with restrictions per orthopedics and working with physical therapy daily Patient was instructed to keep his follow-up appointment with Dr. Tim next week and also informed him that his office has moved. Address was provided on discharge tab We will continue to follow with orthopedics during hospitalization. Thank you kindly for this consultation. The impression and plan of care has been dictated by Farzaneh Vu, Nurse Practitioner as directed. Dr. Dianna MD I have performed a history and examination and MDM of this patient, discussed the same with the dictator, and agree with the dictator's assessment and plan as written ,documented as a scribe. Based on total visit time, I have performed more than 50% of the visit. Objective - Vital Signs Vital signs: Vital Signs Temp 99.7 F H 02/23/24 07:12 Pulse 95 02/23/24 07:12 Resp 16 02/23/24 07:12 BP 136/75 02/23/24 07:12 Pulse Ox 95 02/23/24 07:12 FiO2 Intake & Output 02/22/24 02/23/24 02/23/24 18:59 06:59 18:59 Intake Total 1080 Output Total 373 599 3524 Balance -200 840 -1275 Intake: Oral 1080 Output: Drainage 240 Back 240 Urine 200 1275 Other: Voiding Method Indwelling Catheter # Voids 3 - Labs CBC & Chem 7: 02/22/24 11:02 02/20/24 03:20 Labs: Abnormal Lab Results - Last 24 Hours (Table) 02/22/24 Range/Units 11:02 RBC 3.07 L (4.30-5.90) m/uL Hgb 9.3 L (13.0-17.5) gm/dL Hct 27.4 L (39.0-53.0) % Assessment and Plan Time with Patient: Less than 30
== END 2024-02-23 12:09 | disposition home or self-care (01) | DRG 427 ==
LOC: 2ORMAIN 10:06 → 4SSUR 19:02
PROVIDERS: ADMIT Orthopaedic Surgery; ATTEND Orthopaedic Surgery
PROC: 0SG1071 Fusion of 2 or more Lumbar Vertebral Joints with Autologous Tissue Substitute, Posterior Approach, Posterior Column, Open Approach (ICD-10-PCS; 2024-02-19)
PROC: 0SG30A0 Fusion of Lumbosacral Joint with Interbody Fusion Device, Anterior Approach, Anterior Column, Open Approach (ICD-10-PCS; 2024-02-19)
PROC: 0SG3071 Fusion of Lumbosacral Joint with Autologous Tissue Substitute, Posterior Approach, Posterior Column, Open Approach (ICD-10-PCS; 2024-02-19)
PROC: 0SB20ZZ Excision of Lumbar Vertebral Disc, Open Approach (ICD-10-PCS; 2024-02-19)
PROC: 0SB40ZZ Excision of Lumbosacral Disc, Open Approach (ICD-10-PCS; 2024-02-19)
PROC: 01NB0ZZ Release Lumbar Nerve, Open Approach (ICD-10-PCS; 2024-02-19)
PROC: 01NR0ZZ Release Sacral Nerve, Open Approach (ICD-10-PCS; 2024-02-19)
PROC: 0SH804Z Insertion of Internal Fixation Device into Left Sacroiliac Joint, Open Approach (ICD-10-PCS; 2024-02-19)
PROC: 0SH704Z Insertion of Internal Fixation Device into Right Sacroiliac Joint, Open Approach (ICD-10-PCS; 2024-02-19)
PROC: 00NY0ZZ Release Lumbar Spinal Cord, Open Approach (ICD-10-PCS; 2024-02-19)
PROC: 4A11X4G Monitoring of Peripheral Nervous Electrical Activity, Intraoperative, External Approach (ICD-10-PCS; 2024-02-19)
PROC: 8E0WXBF Computer Assisted Procedure of Trunk Region, With Fluoroscopy (ICD-10-PCS; 2024-02-19)
PROC: 0SG10A0 Fusion of 2 or more Lumbar Vertebral Joints with Interbody Fusion Device, Anterior Approach, Anterior Column, Open Approach (ICD-10-PCS; principal; 2024-02-19 11:45)
DX: M48.062 Spinal stenosis, lumbar region with neurogenic claudication (principal); Z68.41 Body mass index [BMI] 40.0-44.9, adult; M47.27 Other spondylosis with radiculopathy, lumbosacral region; M48.07 Spinal stenosis, lumbosacral region; G89.29 Other chronic pain; F32.A Depression, unspecified; E66.01 Morbid (severe) obesity due to excess calories; D72.829 Elevated white blood cell count, unspecified; M71.38 Other bursal cyst, other site; M19.90 Unspecified osteoarthritis, unspecified site; E78.5 Hyperlipidemia, unspecified; I10 Essential (primary) hypertension; E03.9 Hypothyroidism, unspecified; Z79.890 Hormone replacement therapy; F17.210 Nicotine dependence, cigarettes, uncomplicated; M43.16 Spondylolisthesis, lumbar region; Z82.49 Family history of ischemic heart disease and other diseases of the circulatory system; Z86.14 Personal history of Methicillin resistant Staphylococcus aureus infection; Z85.830 Personal history of malignant neoplasm of bone; Z96.642 Presence of left artificial hip joint; Z86.16 Personal history of COVID-19; Z88.8 Allergy status to other drugs, medicaments and biological substances
CPT/HCPCS: 72100; 72131; 80048; 85025; 85027; 86850; 86891; 86900; 86901; 87070; 94760

== ENCOUNTER 2024-02-25 13:43 | Inpatient (IN) | payer MEDICARE, OTHER ==
--- NOTE | 2024-02-25 15:19 | ED ---
Back Pain HPI - General Chief Complaint: Back Pain/Injury Stated Complaint: Post Op Complication Time Seen by Provider: 02/25/24 15:16 Source: patient, EMS, RN notes reviewed Limitations: no limitations - History of Present Illness Initial Comments: 73-year-old male presenting with left foot swelling x 2 days. States he recently underwent decompressive laminectomy of lumbar spine with Dr. Devries 1 week ago and was discharged 2 days ago. States surgery was uncomplicated. States over the past 2 days he has noticed swelling in his left foot and pain that radiates into the left thigh. He is currently taking an antibiotic. Denies blood thinners. Denies chest pain, shortness of breath, fevers, chills, vomiting. - Related Data Home Medications Medication Instructions Recorded Confirmed Levothyroxine Sodium [Synthroid] 75 mcg PO HS 12/08/16 02/15/24 traZODone HCL 50 mg PO HS 01/12/21 02/15/24 Losartan/Hydrochlorothiazide 1 tab PO HS 11/14/21 02/15/24 [Losartan-Hctz 100-25 mg Tab] amLODIPine BESYLATE 2.5 mg PO HS 02/15/24 02/15/24 Previous Rx's Medication Instructions Recorded Cyclobenzaprine [Flexeril] 10 mg PO TID #21 tab 02/23/24 Gabapentin [Neurontin] 300 mg PO TID #30 cap 02/23/24 HYDROcodone/APAP 10-325MG [[place] 1 tab PO Q6HR PRN #28 tab 02/23/24 10-325] Lactulose 20 gm PO DAILY PRN #120 ml 02/23/24 Sennosides/Docusate Sodium [[place] 1 each PO DAILY #20 capsule 02/23/24 Plus 8.6-50 mg Softgel] cefaDROXiL [Duricef] 500 mg PO Q12HR 5 Days #10 cap 02/23/24 Allergies Allergy/AdvReac Type Severity Reaction Status Date / Time bupropion [From Zyban] Allergy Rash/Hives Verified 02/25/24 13:59 diclofenac [From Arthrotec] Allergy Anaphylaxis, Verified 02/25/24 13:59 TROUBLE BREATH misoprostol [From Arthrotec] Allergy Anaphylaxis Verified 02/25/24 13:59 Mbjrtmu-JVV-UxW Reductase AdvReac muscle pain Verified 02/25/24 13:59 Inhibitor [Estybdp-Nqn-Vhh Reductase Inhibitor] Review of Systems ROS Statement: Those systems with pertinent positive or pertinent negative responses have been documented in the HPI. ROS Other: All systems not noted in ROS Statement are negative. Past Medical History Past Medical History: Hyperlipidemia, Hypertension, Musculoskeletal Disorder, Os teoarthritis (OA), Thyroid Disorder Additional Past Medical History / Comment(s): Pre-Diabetic, hx gout, lumbar spinal stenosis with pain, nerve pain, tingling and numbness in hands and feet, COVID JUNE 2021. History of Any Multi-Drug Resistant Organisms: MRSA Date of last positivie culture/infection: 2012 MDRO Source:: left hip Past Surgical History: Joint Replacement, Orthopedic Surgery Additional Past Surgical History / Comment(s): Total left hip replacement - surgery X4 due to MRSA, cyst removed from forehead, right knee surgery with plate (chondrosarcoma), pain procedures. Past Anesthesia/Blood Transfusion Reactions: Family History of Problems w/ Anesthesia, Motion Sickness Additional Past Anesthesia/Blood Transfusion Reaction / Comment(s): "Nephew went into anaphylactic shock, he was allergic to it." Patient states never heard of malignant hyperthermia. Past Psychological History: Depression Smoking Status: Former smoker Past Alcohol Use History: None Reported Past Drug Use History: None Reported - Past Family History Mother Family Medical History: Myocardial Infarction ([place]) General Exam Limitations: no limitations General appearance: alert, in no apparent distress Respiratory exam: Present: normal lung sounds bilaterally. Absent: respiratory distress, wheezes, rales, rhonchi, stridor Cardiovascular Exam: Present: regular rate, normal rhythm, normal heart sounds. Absent: systolic murmur, diastolic murmur, rubs, gallop, clicks GI/Abdominal exam: Present: soft, normal bowel sounds. Absent: distended, tenderness, guarding, rebound, rigid Left Hip exam: Present: normal inspection, full ROM. Absent: tenderness, swelling Upper Leg exam: Present: normal inspection, full ROM. Absent: tenderness, swelling Knee exam: Present: normal inspection, full ROM. Absent: tenderness, swelling Lower Leg exam: Present: normal inspection, full ROM. Absent: tenderness, swelling Ankle exam: Present: full ROM, tenderness, swelling (Moderate erythema and edema of left foot, warm to palpation. No active drainage), erythema. Absent: normal inspection, abrasion, laceration, deformity Foot/Toe exam: Present: normal inspection, full ROM. Absent: tenderness, swelling Neurovascular tendon exam: Present: no vascular compromise. Absent: pulse deficit, abnormal cap refill, sensory deficit Back exam: Present: other (Vertical incision overlying lumbar spine clean, dry, and intact, no surrounding erythema or drainage. Trip placed) Neurological exam: Present: alert, oriented X3 Psychiatric exam: Present: normal affect, normal mood Skin exam: Present: warm, dry, intact Course Vital Signs 02/25/24 02/25/24 14:01 16:23 Temperature 99.5 F 98.7 F Pulse Rate 117 H 97 Respiratory 17 18 Rate Blood Pressure 141/78 124/77 O2 Sat by Pulse 97 93 L Oximetry Medical Decision Making - Medical Decision Making Was pt. sent in by a medical professional or institution (, PA, MANAGER TRAINEE, urgent care, hospital, or fci...) When possible be specific @ -No Did you speak to anyone other than the patient for history (EMS, parent, family, police, friend...)? What history was obtained from this source @ -No Did you review nursing and triage notes (agree or disagree)? Why? @ -I reviewed and agree with nursing and triage notes Were old charts reviewed (outside hosp., previous admission, EMS record, old EKG, old radiological studies, urgent care reports/EKG's, fci records)? Report findings @ -No old charts were reviewed Differential Diagnosis (chest pain, altered mental status, abdominal pain women, abdominal pain men, vaginal bleeding, weakness, fever, dyspnea, syncope, headache, dizziness, GI bleed, back pain, seizure, CVA, palpatations, mental health, musculoskeletal)? @ -Differential Musculoskeletal Muscular strain, contusion, ligament sprain, fracture, arthritis, septic arthritis, bursitis, cellulitis, muscle spasm, nerve compression, DVT, arterial occlusion, herpes zoster, electrolyte abnormality, tumor.... This is not meant to be in all inclusive list EKG interpreted by me (3pts min.). @ -None X-rays interpreted by me (1pt min.). @ -None done CT interpreted by me (1pt min.). @ -None done U/S interpreted by me (1pt. min.). @ -Ultrasound left lower extremity negative for DVT What testing was considered but not performed or refused? (CT, X-rays, U/S, labs)? Why? @ -None What meds were considered but not given or refused? Why? @ -None Did you discuss the management of the patient with other professionals (professionals i.e. , PA, MANAGER TRAINEE, lab, RT, psych nurse, bilingual social worker, tennis desk team member, teacher, biosecurity officer, case briefer)? Give summary @ -I spoke with John from [facility] for admission Was smoking cessation discussed for >3mins.? @ -No Was critical care preformed (if so, how long)? @ -No Were there social determinants of health that impacted care today? How? (Homelessness, low income, unemployed, alcoholism, drug addiction, transportation, low edu. Level, literacy, decrease access to med. care, usp, rehab)? @ -No Was there de-escalation of care discussed even if they declined (Discuss DNR or withdrawal of care, Hospice)? DNR status @ -No What co-morbidities impacted this encounter? (DM, HTN, Smoking, COPD, CAD, Cancer, CVA, ARF, Chemo, Hep., AIDS, mental health diagnosis, sleep apnea, morbid obesity)? @ -None Was patient admitted / discharged? Hospital course, mention meds given and route, prescriptions, significant lab abnormalities, going to OR and other pertinent info. @ -Admitted. 73-year-old male presenting for left foot redness/swelling x 2 days. Patient was recently admitted for back surgery and discharged 2 days ago. Patient is tachycardic, afebrile. Neurovascularly intact. There is edema and erythema to left foot. Lab work remarkable for CRP 25, white blood cell count stable at 10. Ultrasound left lower extremity negative for DVT. Results discussed with patient. Patient will be admitted for IV antibiotics for left foot cellulitis as patient has failed oral antibiotics. I spoke with John from [facility] for admission. Case was discussed with my ED attending Dr. Khan. Undiagnosed new problem with uncertain prognosis? @ -No Drug Therapy requiring intensive monitoring for toxicity (Heparin, Nitro, Insulin, Cardizem)? @ -No Were any procedures done? @ -No Diagnosis/symptom? @ -Left foot cellulitis Acute, or Chronic, or Acute on Chronic? @ -Acute Uncomplicated (without systemic symptoms) or Complicated (systemic symptoms)? @ -Uncomplicated Side effects of treatment? @ -No Exacerbation, Progression, or Severe Exacerbation? @ -No Poses a threat to life or bodily function? How? (Chest pain, [place], [place], pneumonia, PE, COPD, DKA, ARF, appy, cholecystitis, CVA, Diverticulitis, Homicidal, Suicidal, threat to staff... and all critical care pts) @ -Yes - Lab Data Result diagrams: 02/25/24 15:13 02/25/24 15:13 Lab Results 02/25/24 02/25/24 02/25/24 Range/Units 15:13 15:13 15:13 WBC (3.8-10.6) k/uL RBC (4.30-5.90) m/uL Hgb (13.0-17.5) gm/dL Hct (39.0-53.0) % MCV (80.0-100.0) fL MCH (25.0-35.0) pg MCHC (31.0-37.0) g/dL RDW (11.5-15.5) % Plt Count (150-450) k/uL MPV Neutrophils % % Lymphocytes % % Monocytes % % Eosinophils % % Basophils % % Neutrophils # (1.3-7.7) k/uL Lymphocytes # (1.0-4.8) k/uL Monocytes # (0-1.0) k/uL Eosinophils # (0-0.7) k/uL Basophils # (0-0.2) k/uL PT 10.6 (10.0-12.5) sec INR 1.0 (<1.2) APTT 25.3 (22.0-30.0) sec Sodium 129 L (137-145) mmol/L Potassium 4.1 (3.5-5.1) mmol/L Chloride 99 (98-107) mmol/L Carbon Dioxide 28 (22-30) mmol/L Anion Gap 2 mmol/L BUN 21 H (9-20) mg/dL Creatinine 0.85 (0.66-1.25) mg/dL Est GFR (CKD-EPI)AfAm >90 (>60 ml/min/1.73 sqM) Est GFR (CKD-EPI)NonAf 87 (>60 ml/min/1.73 sqM) Glucose 98 (74-99) mg/dL Plasma Lactic Acid Scott 0.8 (0.7-2.0) mmol/L Calcium 8.1 L (8.4-10.2) mg/dL Total Bilirubin 0.9 (0.2-1.3) mg/dL AST 61 H (17-59) U/L ALT 53 H (4-49) U/L Alkaline Phosphatase 57 (38-126) U/L C-Reactive Protein 25.9 H (<1.0) mg/dL Total Protein 5.3 L (6.3-8.2) g/dL Albumin 2.9 L (3.5-5.0) g/dL 02/25/24 Range/Units 15:13 WBC 10.4 (3.8-10.6) k/uL RBC 3.17 L (4.30-5.90) m/uL Hgb 9.3 L (13.0-17.5) gm/dL Hct 28.7 L (39.0-53.0) % MCV 90.4 (80.0-100.0) fL MCH 29.4 (25.0-35.0) pg MCHC 32.5 (31.0-37.0) g/dL RDW 13.6 (11.5-15.5) % Plt Count 358 (150-450) k/uL MPV 7.2 Neutrophils % 69 % Lymphocytes % 15 % Monocytes % 11 % Eosinophils % 3 % Basophils % 1 % Neutrophils # 7.2 (1.3-7.7) k/uL Lymphocytes # 1.6 (1.0-4.8) k/uL Monocytes # 1.1 H (0-1.0) k/uL Eosinophils # 0.3 (0-0.7) k/uL Basophils # 0.1 (0-0.2) k/uL PT (10.0-12.5) sec INR (<1.2) APTT (22.0-30.0) sec Sodium (137-145) mmol/L Potassium (3.5-5.1) mmol/L Chloride (98-107) mmol/L Carbon Dioxide (22-30) mmol/L Anion Gap mmol/L BUN (9-20) mg/dL Creatinine (0.66-1.25) mg/dL Est GFR (CKD-EPI)AfAm (>60 ml/min/1.73 sqM) Est GFR (CKD-EPI)NonAf (>60 ml/min/1.73 sqM) Glucose (74-99) mg/dL Plasma Lactic Acid Scott (0.7-2.0) mmol/L Calcium (8.4-10.2) mg/dL Total Bilirubin (0.2-1.3) mg/dL AST (17-59) U/L ALT (4-49) U/L Alkaline Phosphatase (38-126) U/L C-Reactive Protein (<1.0) mg/dL Total Protein (6.3-8.2) g/dL Albumin (3.5-5.0) g/dL Disposition Clinical Impression: Cellulitis of left foot Disposition: ADMITTED IP TO THIS [facility] Referrals: John Tim MD [Primary Care Provider] - 1-2 days Time of Disposition: 17:11
[2024-02-25 15:33] LABS: Partial Thromboplastin Time 25.3 sec (22.0-30.0); Prothrombin Time 10.6 sec (10.0-12.5)
[2024-02-25 15:35] LABS: Basophils # (A) 0.1 k/uL (0-0.2); Basophils % (A) 1 %; Eosinophils # (A) 0.3 k/uL (0-0.7); Eosinophils % (A) 3 %; HCT 28.7 % (39.0-53.0); HGB 9.3 gm/dL (13.0-17.5); Lymphocytes # (A) 1.6 k/uL (1.0-4.8); Lymphocytes % (A) 15 %; MCH 29.4 pg (25.0-35.0); MCHC 32.5 g/dL (31.0-37.0); MCV 90.4 fL (80.0-100.0); Mean Platelet Volume 7.2; Monocytes # (A) 1.1 k/uL (0-1.0); Monocytes % (A) 11 %; Neutrophils # (A) 7.2 k/uL (1.3-7.7); Neutrophils % (A) 69 %; Platelet Count 358 k/uL (150-450); RBC 3.17 m/uL (4.30-5.90); RDW 13.6 % (11.5-15.5); WBC 10.4 k/uL (3.8-10.6)
[2024-02-25 15:39] LABS: ALT 53 U/L (4-49); AST 61 U/L (17-59); African American GFR (CKD) >90 (>60 ml/min/1.73 sqM); Albumin 2.9 g/dL (3.5-5.0); Alkaline Phosphatase 57 U/L (38-126); Anion Gap 2 mmol/L; Blood Urea Nitrogen 21 mg/dL (9-20); Calcium 8.1 mg/dL (8.4-10.2); Carbon Dioxide 28 mmol/L (22-30); Chloride 99 mmol/L (98-107); Glucose 98 mg/dL (74-99); Non-African American GFR(CKD) 87 (>60 ml/min/1.73 sqM); Potassium 4.1 mmol/L (3.5-5.1); Sodium 129 mmol/L (137-145); Total Bilirubin 0.9 mg/dL (0.2-1.3); Total Protein 5.3 g/dL (6.3-8.2)
[2024-02-25 16:06] LABS: C Reactive Protein 25.9 mg/dL (<1.0)
--- NOTE | 2024-02-25 16:19 | US ---
EXAMINATION TYPE: US venous doppler duplex LE LT DATE OF EXAM: 02/25/2024 3:58 PM COMPARISON: NONE CLINICAL INDICATION: Male, 73 years old with history of left leg swelling s/p surgrey; swollen left f oot, pain and redness TECHNIQUE: The lower extremity deep venous system is examined utilizing real time linear array sonog muriel with graded compression, color doppler sonography, and spectral doppler. SIDE PERFORMED: Left FINDINGS: VESSELS IMAGED: Common Femoral Vein Deep Femoral Vein Greater Saphenous Vein * Femoral Vein Popliteal Vein Small Saphenous Vein * Proximal Calf Veins (* superficial vessels) The deep venous system of the left lower extremity from the common femoral vein to the proximal calf veins is patent and compressible with augmentable flow with normal waveforms. IMPRESSION: No evidence of left lower extremity DVT from the common femoral vein to the proximal calf veins [facility], Workstation: [id number], 02/25/2024 4:16 PM
[2024-02-25] MEDS ORDERED: NALOXONE 0.4 MG/ML 1 ML VIAL IV PRN (17:07)
[2024-02-25] MEDS ORDERED: ONDANSETRON 4 MG/2 ML VIAL IVP PRN (17:07)
[2024-02-25] MEDS: ACETAMINOPHEN TAB 325 MG TAB PO PRN (18:22)
[2024-02-25] MEDS: HYDROmorphone 1 MG/ML 1 ML SYRINGE IVP PRN (18:58)
[2024-02-25] MEDS ORDERED: COLCHICINE 0.6 MG EACH PO PRN (21:28)
[2024-02-25] MEDS ORDERED: ALBUTEROL NEBULIZED 2.5 MG/3 ML INHALATION PRN (21:28)
[2024-02-25] MEDS: traZODone HCL 50 MG TAB PO SCH (21:59)
[2024-02-25] MEDS: GABAPENTIN 300 MG CAP PO SCH (21:59)
[2024-02-26] MEDS: LEVOTHYROXINE 75 MCG TAB PO SCH (06:03)
[2024-02-26] MEDS: CEPHALEXIN 250 MG CAP PO SCH (09:20)
--- NOTE | 2024-02-26 13:27 | P.HPIM ---
History of Present Illness This is a pleasant 73 years old male with past medical history of multiple medical problems as below. Presents because of back pain and left foot numbness. Patient was recently discharged from this facility about 2 days ago where he has been seen for back pain and he underwent L2 pelvic decompression and fusion. He presents because left foot feeling numb. His back pain states is chronic for many years. He denies any new radiculopathy symptoms like weakness or tingling or numbness No chest pain or dyspnea. No specific GI/ symptoms Patient denies smoking alcohol or illicit drugs Patient on admission has low-grade fever 104 and today 99.9 He is mildly tachycardic 94. Labs showing WBC of 10.4, hemoglobin 9.3. INR 1.0. Sodium 129, rest of BMP is unremarkable Liver enzymes AST is mildly elevated 61 and ALT 53 with total bilirubin 0.9 Venous Doppler on admission was negative for acute DVT on The left lower extremity Patient was started on cefazolin Review of Systems Review of systems CONSTITUTIONAL: No fever, no malaise, no fatigue. HEENT: No recent visual problems or hearing problems. Denied any sore throat. CARDIOVASCULAR: No orthopnea, PND, no palpitations, no syncope. PULMONARY: No shortness of breath, no cough, no hemoptysis. GASTROINTESTINAL: No diarrhea, no nausea, no vomiting, no abdominal pain. Normoactive bowel sounds. NEUROLOGICAL: No headaches, no weakness, no numbness. HEMATOLOGICAL: Denies any bleeding or petechiae. GENITOURINARY: Denies any burning micturition, frequency, or urgency. MUSCULOSKELETAL/RHEUMATOLOGICAL: Denies any joint pain, swelling, or any muscle pain. ENDOCRINE: Denies any polyuria or polydipsia. Past Medical History Past Medical History: Hyperlipidemia, Hypertension, Musculoskeletal Disorder, Osteoarthritis (OA), Thyroid Disorder Additional Past Medical History / Comment(s): Pre-Diabetic, hx gout, lumbar spinal stenosis with pain, nerve pain, tingling and numbness in hands and feet, COVID JUNE 2021. History of Any Multi-Drug Resistant Organisms: MRSA Date of last positivie culture/infection: 2012 MDRO Source:: left hip Past Surgical History: Back Surgery, Joint Replacement, Orthopedic Surgery Additional Past Surgical History / Comment(s): Total left hip replacement - surgery X4 due to MRSA, cyst removed from forehead, right knee surgery with plate (chondrosarcoma), pain procedures. Past Anesthesia/Blood Transfusion Reactions: Family History of Problems w/ Anesthesia, Motion Sickness Additional Past Anesthesia/Blood Transfusion Reaction / Comment(s): "Nephew went into anaphylactic shock, he was allergic to it." Patient states never heard of malignant hyperthermia. Past Psychological History: Depression Additional Psychological History / Comment(s): Mild depression at times. Smoking Status: Former smoker Past Alcohol Use History: None Reported Additional Past Alcohol Use History / Comment(s): Smoked 1ppd from age 20, quit 06/27/23. Past Drug Use History: None Reported - Past Family History Mother Family Medical History: Myocardial Infarction ([place]) Medications and Allergies Home Medications Medication Instructions Recorded Confirmed Type Levothyroxine Sodium [Synthroid] 75 mcg PO DAILY 12/08/16 02/25/24 History traZODone HCL 50 mg PO HS 01/12/21 02/25/24 History Losartan/Hydrochlorothiazide 1 tab PO HS 11/14/21 02/25/24 History [Losartan-Hctz 100-25 mg Tab] amLODIPine BESYLATE 2.5 mg PO HS 02/15/24 02/25/24 History Cyclobenzaprine [Flexeril] 10 mg PO TID #21 tab 02/23/24 02/25/24 Rx Gabapentin [Neurontin] 300 mg PO TID #30 cap 02/23/24 02/25/24 Rx HYDROcodone/APAP 10-325MG [[place] 1 tab PO Q6HR PRN #28 tab 02/23/24 02/25/24 Rx 10-325] Lactulose 20 gm PO DAILY PRN #120 ml 02/23/24 02/25/24 Rx cefaDROXiL [Duricef] 500 mg PO Q12HR 5 Days #10 cap 02/23/24 02/25/24 Rx Albuterol Inhaler [Ventolin Hfa 2 puff INHALATION RT-Q6H PRN 02/25/24 02/25/24 History Inhaler] Colchicine [Mitigare] 0.6 mg PO DAILY PRN 02/25/24 02/25/24 History Allergies Allergy/AdvReac Type Severity Reaction Status Date / Time bupropion [From Zyban] Allergy Rash/Hives Verified 02/25/24 13:59 diclofenac [From Arthrotec] Allergy Anaphylaxis, Verified 02/25/24 13:59 TROUBLE BREATH misoprostol [From Arthrotec] Allergy Anaphylaxis Verified 02/25/24 13:59 Hlxdlqn-WCR-XuJ Reductase AdvReac muscle pain Verified 02/25/24 13:59 Inhibitor [Paaoetn-Bxr-Tim Reductase Inhibitor] Physical Exam Vitals: Vital Signs Temp Pulse Pulse Resp BP BP Pulse Ox 02/26/24 07:00 99.9 F H 94 17 123/66 95 02/26/24 02:00 98.1 F 102 H 18 106/66 92 L 02/25/24 21:58 99.6 F 104 H 18 142/68 92 L 02/25/24 20:53 98.4 F 97 16 102/62 95 02/25/24 19:40 100.3 F H 95 18 123/70 95 02/25/24 18:12 100.4 F H 97 19 139/93 97 02/25/24 16:23 98.7 F 97 18 124/77 93 L 02/25/24 14:01 99.5 F 117 H 17 141/78 97 Intake and Output 02/25/24 02/26/24 02/26/24 22:59 06:59 14:59 Intake Total 118 Output Total 450 Balance -450 118 Intake: Oral 118 Output: Urine 450 Other: Voiding Method Urinal Urinal # Voids 1 Weight 131.542 kg GENERAL: The patient is alert and oriented x3, not in any acute distress. Well developed, well nourished. HEENT: Pupils are round and equally reacting to light. EOMI. No scleral icterus. No conjunctival pallor. Normocephalic, atraumatic. No pharyngeal erythema. No thyromegaly. CARDIOVASCULAR: S1 and S2 present. No murmurs, rubs, or gallops. PULMONARY: Chest is clear to auscultation, no wheezing , no crackles. ABDOMEN: Soft, nontender, nondistended, normoactive bowel sounds. No palpable organomegaly. -MUSCULOSKELETAL: No joint swelling or deformity. Lower and middle back vertical scar, wound closed with kathy in place -EXTREMITIES: No cyanosis, clubbing, or pedal edema. Left distal leg and foot are universally mildly swollen and pink NEUROLOGICAL: Gross neurological examination did not reveal any focal deficits. SKIN: No rashes. no petechiae. Results CBC & Chem 7: 02/25/24 15:13 02/25/24 15:13 Labs: Abnormal Lab Results - Last 24 Hours (Table) 02/25/24 02/25/24 Range/Units 15:13 15:13 RBC 3.17 L (4.30-5.90) m/uL Hgb 9.3 L (13.0-17.5) gm/dL Hct 28.7 L (39.0-53.0) % Monocytes # 1.1 H (0-1.0) k/uL Sodium 129 L (137-145) mmol/L BUN 21 H (9-20) mg/dL Calcium 8.1 L (8.4-10.2) mg/dL AST 61 H (17-59) U/L ALT 53 H (4-49) U/L C-Reactive Protein 25.9 H (<1.0) mg/dL Total Protein 5.3 L (6.3-8.2) g/dL Albumin 2.9 L (3.5-5.0) g/dL Thrombosis Risk Factor Assmnt - Choose All That Apply Any of the Below Risk Factors Present?: Yes Each Factor Represents 1 point: Medical pt on bed rest, Swollen legs (current) Other Risk Factors: Yes Each Risk Factor Represents 2 Points: Age 61-74 years, Patient confined to bed Thrombosis Risk Factor Assessment Total Risk Factor Score: 6 Thrombosis Risk Factor Assessment Level: High Risk Assessment and Plan Assessment: Left lower foot cellulitis Hyponatremia, mild L1-S1 severe spondylosis with stenosis with bilateral lower extremity weakness and radiculopathy. Status post L2 to pelvic decompression and fusion with pelvic screws and L1-S1 laminectomy Hypertension Hyperlipidemia Hypothyroidism Osteoarthritis Plan: Continue with cefazolin Follow-up clinical improvement Continue with gentle hydration Follow-up sodium level Consult infectious disease team Consult orthopedic team as patient has recent back surgery Labs and medication were reviewed.. Continue same treatment. Continue with symptomatic treatment. Resume home medication. Monitor labs and vitals. DVT and GI prophylaxis. Further recommendations as per clinical course of the patient DVT prophylaxis: Subcutaneous heparin GI Prophylaxis: Pepcid PT/OT: Pending Prognosis is guarded
[2024-02-26 14:50] LABS: Basophils # (A) 0.1 k/uL (0-0.2); Basophils % (A) 1 %; Eosinophils # (A) 0.3 k/uL (0-0.7); Eosinophils % (A) 4 %; HCT 25.9 % (39.0-53.0); HGB 8.5 gm/dL (13.0-17.5); Hypochromasia Slight; Lymphocytes # (A) 1.2 k/uL (1.0-4.8); Lymphocytes % (A) 14 %; MCH 29.3 pg (25.0-35.0); MCHC 32.7 g/dL (31.0-37.0); MCV 89.7 fL (80.0-100.0); Mean Platelet Volume 7.4; Monocytes # (A) 0.8 k/uL (0-1.0); Monocytes % (A) 9 %; Neutrophils # (A) 6.3 k/uL (1.3-7.7); Neutrophils % (A) 71 %; Platelet Count 374 k/uL (150-450); RBC 2.89 m/uL (4.30-5.90); RDW 13.6 % (11.5-15.5); WBC 8.8 k/uL (3.8-10.6)
[2024-02-26 15:12] LABS: African American GFR (CKD) >90 (>60 ml/min/1.73 sqM); Anion Gap 3 mmol/L; Blood Urea Nitrogen 15 mg/dL (9-20); Calcium 7.8 mg/dL (8.4-10.2); Carbon Dioxide 28 mmol/L (22-30); Chloride 98 mmol/L (98-107); Glucose 168 mg/dL (74-99); Non-African American GFR(CKD) 89 (>60 ml/min/1.73 sqM); Sodium 129 mmol/L (137-145)
[2024-02-26] MEDS: HYDROcodone/APAP 10-325MG 1 EACH TAB PO PRN (17:40)
--- NOTE | 2024-02-26 23:22 | P.CONS ---
History of Present Illness - Reason for Consult Consult date: 02/26/24 Left lower extremity cellulitis Requesting physician: Faustino Lopez Sheet - Chief Complaint Left lower extremity pain and swelling x 2 days - History of Present Illness Patient is a 73-year-old male with a past medical history significant for hypertension hyperlipidemia osteoarthritis thyroid disorder in this patient who recently underwent decompressive laminectomy of the lumbar spine with Dr. Devries about a week ago and the patient has been discharged from the hospital about 2 days ago patient now presenting back to the hospital concerning for increasing swelling to the left foot and pain that seem to be related to his thigh patient denies any history of any trauma or fall pain to the foot is mostly dull aching mild to continuous without radiation patient also complaining of significant pain to the lumbar surgical site describing it to be throbbing mo derate intense without radiation denies significant drainage from the lumbar surgical site patient on presentation to the hospital did have a low-grade fever of 99.5 degrees following right and the patient did spike a fever of 100.4 F last evening and a low-grade fever this morning patient is also tachycardic but not hypotensive or hypoxic and no need for supplemental oxygen patient did have a white count of 10.4 with a left shift he did have a normal creatinine electrolytes are normal liver enzymes mildly elevated CRP is 25.9 blood culture has been obtained which are currently pending patient has been started on cefazolin infectious disease was consulted for further management of antibiotic therapy patient did have a venous Doppler no evidence of DVT of the left lower extremity infectious disease was consulted concerning for left lower extremity cellulitis Review of Systems Positive point and negatives has been mentioned in the HPI, complete review of systems was performed and all other systems are negative Past Medical History Past Medical History: Hyperlipidemia, Hypertension, Musculoskeletal Disorder, Osteoarthritis (OA), Thyroid Disorder Additional Past Medical History / Comment(s): Pre-Diabetic, hx gout, lumbar spinal stenosis with pain, nerve pain, tingling and numbness in hands and feet, COVID JUNE 2021. 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 Past Anesthesia/Blood Transfusion Reactions: Family History of Problems w/ Anesthesia, Motion Sickness Additional Past Anesthesia/Blood Transfusion Reaction / Comm: "Nephew went into anaphylactic shock, he was allergic to it." Patient states never heard of malignant hyperthermia. Past Psychological History: Depression Additional Psychological History / Comment(s): Mild depression at times. Smoking Status: Former smoker Past Alcohol Use History: None Reported Additional Past Alcohol Use History / Comment(s): Smoked 1ppd from age 20, quit 06/27/23. Past Drug Use History: None Reported - Past Family History Mother Family Medical History: Myocardial Infarction ([place]) Medications and Allergies Home Medications Medication Instructions Recorded Confirmed Type Levothyroxine Sodium [Synthroid] 75 mcg PO DAILY 12/08/16 02/25/24 History traZODone HCL 50 mg PO HS 01/12/21 02/25/24 History Losartan/Hydrochlorothiazide 1 tab PO HS 11/14/21 02/25/24 History [Losartan-Hctz 100-25 mg Tab] amLODIPine BESYLATE 2.5 mg PO HS 02/15/24 02/25/24 History Cyclobenzaprine [Flexeril] 10 mg PO TID #21 tab 02/23/24 02/25/24 Rx Gabapentin [Neurontin] 300 mg PO TID #30 cap 02/23/24 02/25/24 Rx HYDROcodone/APAP 10-325MG [[place] 1 tab PO Q6HR PRN #28 tab 02/23/24 02/25/24 Rx 10-325] Lactulose 20 gm PO DAILY PRN #120 ml 02/23/24 02/25/24 Rx cefaDROXiL [Duricef] 500 mg PO Q12HR 5 Days #10 cap 02/23/24 02/25/24 Rx Albuterol Inhaler [Ventolin Hfa 2 puff INHALATION RT-Q6H PRN 02/25/24 02/25/24 History Inhaler] Colchicine [Mitigare] 0.6 mg PO DAILY PRN 02/25/24 02/25/24 History Allergies Allergy/AdvReac Type Severity Reaction Status Date / Time bupropion [From Zyban] Allergy Rash/Hives Verified 02/25/24 13:59 diclofenac [From Arthrotec] Allergy Anaphylaxis, Verified 02/25/24 13:59 TROUBLE BREATH misoprostol [From Arthrotec] Allergy Anaphylaxis Verified 02/25/24 13:59 Wdeoefn-LYC-ZfJ Reductase AdvReac muscle pain Verified 02/25/24 13:59 Inhibitor [Adqgffc-Jij-Snv Reductase Inhibitor] Physical Exam Vitals: Vital Signs Temp Pulse Pulse Resp BP BP Pulse Ox 02/26/24 07:00 99.9 F H 94 17 123/66 95 02/26/24 02:00 98.1 F 102 H 18 106/66 92 L 02/25/24 21:58 99.6 F 104 H 18 142/68 92 L 02/25/24 20:53 98.4 F 97 16 102/62 95 02/25/24 19:40 100.3 F H 95 18 123/70 95 02/25/24 18:12 100.4 F H 97 19 139/93 97 02/25/24 16:23 98.7 F 97 18 124/77 93 L Intake and Output 02/25/24 02/26/24 02/26/24 22:59 06:59 14:59 Intake Total 118 Output Total 450 Balance -450 118 Intake: Oral 118 Output: Urine 450 Other: Voiding Method Urinal Urinal # Voids 1 Weight 131.542 kg GENERAL DESCRIPTION: Elderly male lying in bed, no distress. No tachypnea or accessory muscle of respiration use. HEENT: Shows Pallor , no scleral icterus. Oral mucous membrane is dry. No pharyngeal erythema or thrush NECK: Trachea central, no thyromegaly. LUNGS: Unlabored breathing. Clear to auscultation anteriorly. No wheeze or crackle. HEART: S1, S2, regular rate and rhythm. No loud murmur ABDOMEN: Soft, no tenderness , guarding or rigidity, no organomegaly EXTREMITIES: Left lower extremity especially foot on the medial border did have minimal erythema but no significant swelling or redness SKIN: No rash, no masses palpable. Lumbar surgical site kathy are intact no significant swelling or redness was noticed NEUROLOGICAL: The patient is awake, alert, oriented x3, mood and affect normal. Results CBC & Chem 7: 02/26/24 14:30 02/26/24 14:30 Labs: Abnormal Lab Results - Last 24 Hours (Table) 02/25/24 02/25/24 Range/Units 15:13 15:13 RBC 3.17 L (4.30-5.90) m/uL Hgb 9.3 L (13.0-17.5) gm/dL Hct 28.7 L (39.0-53.0) % Monocytes # 1.1 H (0-1.0) k/uL Sodium 129 L (137-145) mmol/L BUN 21 H (9-20) mg/dL Calcium 8.1 L (8.4-10.2) mg/dL AST 61 H (17-59) U/L ALT 53 H (4-49) U/L C-Reactive Protein 25.9 H (<1.0) mg/dL Total Protein 5.3 L (6.3-8.2) g/dL Albumin 2.9 L (3.5-5.0) g/dL Assessment and Plan (1) Fever Current Visit: Yes Status: Acute Code(s): R50.9 - FEVER, UNSPECIFIED SNOMED Code(s): 500514356 (2) Cellulitis of left foot Current Visit: Yes Status: Acute Code(s): L03.116 - CELLULITIS OF LEFT LOWER LIMB SNOMED Code(s): 12055491694349770 Plan: 1patient presenting to the hospital with left lower extremity and foot swelling and pain however has very minimal erythema to the medial end of the left foot clinically doubt significant cellulitis patient however he is running a fever which is slightly concerning and recently did have extensive lumbar decompressive surgery however the surgical site incision looks clean with a staple intact without any drainage 2-blood culture have been obtained results will be followed CRP is elevated we w ill check a procalcitonin and a sed rate and will also obtain influenza COVID PCR to rule out that being in the etiology of his fever 3-for now continue with empiric cefazolin while waiting for the workup to be completed We will follow on clinical condition and cultures to further adjust medication if needed Thank you for this consultation we will follow the patient along with you Dictation was produced using [employer] dictation software. please excuse any grammatical, word or spelling errors. Time with Patient: Greater than 30
[2024-02-27] MEDS: LACTULOSE 20 GM/30 ML CUP PO PRN (08:42)
[2024-02-27 09:20] LABS: HCT 24.3 % (39.6-50.0); HGB 7.9 g/dL (13.0-17.0); MCH 28.7 pg (27.0-32.0); MCHC 32.5 g/dL (32.0-37.0); MCV 88.4 FL (80.0-97.0); Mean Platelet Volume 9.2 FL (9.5-12.2); NRBC Per 100 WBC 0 X 10*3/uL (0.00-0.01); Platelet Count 346 X 10*3/uL (140-440); RBC 2.75 X 10*6/uL (4.40-5.60); RDW 13.5 % (11.5-14.5); WBC 9.01 X 10*3/uL (4.50-10.00)
[2024-02-27 09:21] LABS: Basophils # (A) 0.06 X 10*3/uL (0.00-0.10); Basophils % (A) 0.7 %; Eosinophils # (A) 0.39 X 10*3/uL (0.04-0.35); Eosinophils % (A) 4.3 %; Lymphocytes # (A) 1.35 X 10*3/uL (0.90-5.00); Monocytes # (A) 1.33 X 10*3/uL (0.20-1.00); Monocytes % (A) 14.8 %; Neutrophils # (A) 5.51 X 10*3/uL (1.80-7.70); Neutrophils % (A) 61.1 %
--- NOTE | 2024-02-27 09:41 | XR ---
EXAMINATION TYPE: XR foot limited LT DATE OF EXAM: 02/27/2024 8:42 AM COMPARISON: None CLINICAL INDICATION: Male, 73 years old with history of pain with swelling at 1st MTP joint ?gout; pa in TECHNIQUE: XR foot limited LT examined in the 2 views. FINDINGS: Punched-out lesion involving the medial aspect of the first digit distal phalanx. No eviden ce of any acute osseous pathology. Multifocal degeneration changes throughout the joints of the foot with osteophyte formation and joint space narrowing worse at the first digit metatarsophalangeal join t with more moderate degeneration.. Calcaneal Achilles enthesophyte. Calcaneal plantar spurring is pr esent. Mild hallux bowel is noted. IMPRESSION: 1. No evidence of acute fracture. 2. Punched out lesion involving the base of the first digit proximal phalanx base possibly related t o gout. Correlate with serum markers. 3. Moderate to severe degeneration changes throughout the joints of the foot worst at the first digi t metatarsophalangeal joint. 4. Calcaneal plantar spurring and Achilles enthesophyte formation. 5. Mild hallux valgus. [facility], , 02/27/2024 9:39 AM
[2024-02-27 10:06] LABS: BUN/Creat Ratio 13.62 Ratio (12.00-20.00); Blood Urea Nitrogen 10.9 mg/dL (9.0-27.0); Calcium 7.9 mg/dL (8.7-10.3); Carbon Dioxide 27.3 mmol/L (21.6-31.8); Chloride 98 mmol/L (96-109); Glucose 137 mg/dL (70-110); Potassium 4.1 mmol/L (3.5-5.5); Sodium 134 mmol/L (135-145); Uric Acid 6.8 mg/dL (3.7-8.7)
[2024-02-27 10:46] LABS: Erythrocyte Sedimentation Rate 43 mm/Hr (0-20)
--- NOTE | 2024-02-27 11:19 | P.CNOR ---
History of Present Illness - [facility] Consult date: 02/27/24 Consult reason: other (Recent back surgery) History of present illness: Patient is a 73-year-old male who recently underwent a T6hxidta decompression and posterolateral and interbody fusion. This was done by Dr. Devries on 02/19/2024. Patient was recently discharged home from the hospital about 3 days ago. Patient has had home health care during that visit. Patient has some other family members that have been helping out at home. Patient did report back to the hospital due to worsening back pain, difficulty with ambulation and left foot pain and swelling. Patient has a known history of gout. Patient was admitted to [facility], orthopedic team was consulted for evaluation of this patient. Patient was evaluated today at bedside, he is resting comfortably in his hospital bed. Patient appears to be in no acute distress. He does admit to some on and off back pain, he states it has been pretty stable since the surgery. Patient states he is felt pretty unsteady on his feet over the last few days. He feels that the left foot pain and swelling has not made this easier. Like stated above, he has a known history of gout and utilizes colchicine on these flareups. He denies any recent falls at home or other trauma. While reviewing patient's labs, it was noted his hemoglobin has steadily decreased during his hospital stay. His inflammatory markers, including CRP and sed rate are both elevated. Patient states that he has not had a bowel movement since surgery. He has been urinating with no issues. He denies any melchor loss of range of motion/strength deficit in the bilateral lower extremities. He denies any loss of bowel or bladder function at this time. Review of Systems Constitutional: Reports as per HPI Past Medical History Past Medical History: Hyperlipidemia, Hypertension, Musculoskeletal Disorder, Osteoarthritis (OA), Thyroid Disorder Additional Past Medical History / Comment(s): Pre-Diabetic, hx gout, lumbar spinal stenosis with pain, nerve pain, tingling and numbness in hands and feet, COVID JUNE 2021. 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 Past Anesthesia/Blood Transfusion Reactions: Family History of Problems w/ Anesthesia, Motion Sickness Additional Past Anesthesia/Blood Transfusion Reaction / Comm: "Nephew went into anaphylactic shock, he was allergic to it." Patient states never heard of malignant hyperthermia. Past Psychological History: Depression Additional Psychological History / Comment(s): Mild depression at times. Smoking Status: Former smoker Past Alcohol Use History: None Reported Additional Past Alcohol Use History / Comment(s): Smoked 1ppd from age 20, quit 06/27/23. Past Drug Use History: None Reported - Past Family History Mother Family Medical History: Myocardial Infarction ([place]) Medications and Allergies Home Medications Medication Instructions Recorded Confirmed Type Levothyroxine Sodium [Synthroid] 75 mcg PO DAILY 12/08/16 02/25/24 History traZODone HCL 50 mg PO HS 01/12/21 02/25/24 History Losartan/Hydrochlorothiazide 1 tab PO HS 11/14/21 02/25/24 History [Losartan-Hctz 100-25 mg Tab] amLODIPine BESYLATE 2.5 mg PO HS 02/15/24 02/25/24 History Cyclobenzaprine [Flexeril] 10 mg PO TID #21 tab 02/23/24 02/25/24 Rx Gabapentin [Neurontin] 300 mg PO TID #30 cap 02/23/24 02/25/24 Rx HYDROcodone/APAP 10-325MG [[place] 1 tab PO Q6HR PRN #28 tab 02/23/24 02/25/24 Rx 10-325] Lactulose 20 gm PO DAILY PRN #120 ml 02/23/24 02/25/24 Rx cefaDROXiL [Duricef] 500 mg PO Q12HR 5 Days #10 cap 02/23/24 02/25/24 Rx Albuterol Inhaler [Ventolin Hfa 2 puff INHALATION RT-Q6H PRN 02/25/24 02/25/24 History Inhaler] Colchicine [Mitigare] 0.6 mg PO DAILY PRN 02/25/24 02/25/24 History Allergies Allergy/AdvReac Type Severity Reaction Status Date / Time bupropion [From Zyban] Allergy Rash/Hives Verified 02/25/24 13:59 diclofenac [From Arthrotec] Allergy Anaphylaxis, Verified 02/25/24 13:59 TROUBLE BREATH misoprostol [From Arthrotec] Allergy Anaphylaxis Verified 02/25/24 13:59 Ykefawb-VUW-HxD Reductase AdvReac muscle pain Verified 02/25/24 13:59 Inhibitor [Ntkpeiz-Tkb-Lgp Reductase Inhibitor] Physical Examination Gen: AOx3, NAD VSS stable at this time Integument: Posterior incision is well-healing, kathy are all in good position condition. There is no active drainage visualized, there is no areas of obvious fluctuance appreciated Palpation: Patient demonstrates tenderness to palpation throughout the lumbar spine both paraspinal and midline ROM: Full range of motion in all major muscle groups of the bilateral lower and upper extremities, no focal deficits appreciated Sensory Exam: Senory exam to light touch is intact C5-T1 Senosry exam to light touch is intact L2-S1 Motor: 5/5 strength appreciate the bilateral upper extremities with shoulder elevation, shoulder abduction, elbow extension, elbow flexion, wrist extension, wrist flexion, rehabilitation counselor 4-/strength appreciate the bilateral lower extremities with hip flexion5 4/5 strength appreciated bilateral lower extremities with knee extension, knee flexion, plantarflexion, dorsiflexion, EHL, FHL Reflexes: 2/4 in all UE and LE Negative Giselle's bilaterally Negative clonus bilaterally Results - Labs Labs: Abnormal Lab Results - Last 24 Hours (Table) 02/26/24 02/26/24 02/26/24 Range/Units 14:30 14:30 19:55 RBC 2.89 L (4.30-5.90) m/uL Hgb 8.5 L (13.0-17.5) gm/dL Hct 25.9 L (39.0-53.0) % MPV (9.5-12.2) FL Immature Gran # (0.00-0.04) X 10*3/uL Monocytes # (0.20-1.00) X 10*3/uL Eosinophils # (0.04-0.35) X 10*3/uL ESR (0-20) mm/Hr Sodium 129 L (137-145) mmol/L Glucose 168 H (74-99) mg/dL Calcium 7.8 L (8.4-10.2) mg/dL Ur Random Sodium <20 L (40-220) mmol/L 02/27/24 02/27/24 Range/Units 05:00 05:00 RBC 2.75 L (4.30-5.90) m/uL Hgb 7.9 L (13.0-17.5) gm/dL Hct 24.3 L (39.0-53.0) % MPV 9.2 L (9.5-12.2) FL Immature Gran # 0.37 H (0.00-0.04) X 10*3/uL Monocytes # 1.33 H (0.20-1.00) X 10*3/uL Eosinophils # 0.39 H (0.04-0.35) X 10*3/uL ESR 43 H (0-20) mm/Hr Sodium 134 L (137-145) mmol/L Glucose 137 H (74-99) mg/dL Calcium 7.9 L (8.4-10.2) mg/dL Ur Random Sodium (40-220) mmol/L Microbiology - Last 24 Hours (Table) 02/25/24 17:59 Blood Culture - Preliminary Blood H & H 02/25/24 02/26/24 02/27/24 Range/Units 15:13 14:30 05:00 Hgb 9.3 L 8.5 L 7.9 L (13.0-17.5) gm/dL Hct 28.7 L 25.9 L 24.3 L (39.0-53.0) % Coagulation 02/25/24 Range/Units 15:13 INR 1.0 (<1.2) Result Diagrams: 02/27/24 05:00 02/27/24 05:00 - Diagnostic results Ankle/Foot x-ray: report reviewed, image reviewed Assessment and Plan Assessment: Chronic low back pain Postoperative day #8 [id number] decompression and posterior lateral instrumented fusion Anemia Constipation/postoperative ileus Medical debility Acute on chronic gouty arthropathy left foot Other medical comorbidities Plan: I will discuss this case, this to include physical exam findings with my attending Dr. Devries and decide on possible further imaging studies of the lumbar spine Consult has been placed for general surgery for evaluation of his constipation/postoperative ileus, recommendations appreciated Pain control, discussed with patient trying to avoid narcotics to help with c urrent abdominal/bowel issue. Multiple stool softeners have also been ordered today LSO brace to be worn when ambulating shorter distances, discussed with patient to have family bring that in while he is in the hospital. Recommend the use of a walker at all times PT/OT evaluation GI DVT prophylaxis, per primary medical service Other medical specialty recommendations appreciated Further recommendations to follow
[2024-02-27] MEDS: SENNOSIDES 8.6 MG TAB PO PRN (11:37)
[2024-02-27] MEDS: polyethylene glycoL 3350 17 GM POWD.PACK PO SCH (11:37)
[2024-02-27] MEDS: IOPAMIDOL CONTRAST (ORAL USE) VIAL PO PRN (14:04)
--- NOTE | 2024-02-27 14:06 | P.GSCN ---
History of Present Illness Consult date: 02/27/24 History of present illness: CHIEF COMPLAINT: Back pain and left leg pain HISTORY OF PRESENT ILLNESS: This is a 73-year-old male who presented the hospital with complaints of back pain and left foot swelling. Patient is status post decompressive laminectomy of the lumbar spine [address] Devries. Patient now admitted to the hospital with possible cellulitis of the leg. Surgical service has been consulted in regards to possible constipation versus small bowel obstruction. Patient reports he has not had a bowel movement in a week. He is having flatus. Denies any nausea or vomiting. He has had limited mobility since his back surgery and has been taking [place] for pain management. Patient reports that on prior surgeries while taking [place] he has had issues with constipation. He denies any prior abdominal surgeries. Last colonoscopy was several years ago and has had polyps removed. Patient has had some low-grade fevers on admission. He has been mildly tachycardic. 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 MEDICATIONS: See below ALLERGIES: See below SOCIAL HISTORY: No illicit drug use. REVIEW OF SYSTEMS: CONSTITUTIONAL: Denies fever or chills. HEENT: Denies blurred vision, vision changes, or eye pain. Denies hemoptysis CARDIOVASCULAR: Denies chest pain or pressure. RESPIRATORY: No shortness of breath. GASTROINTESTINAL: See HPI for pertinent findings HEMATOLOGIC: Denies bleeding disorders. GENITOURINARY: Denies any blood in urine or increased urinary frequency. SKIN: Denies pruitis. Denies rash. PHYSICAL EXAM: VITAL SIGNS: Reviewed GENERAL: Well-developed in no acute distress. HEENT: No sclera icterus. Extraocular movements grossly intact. Moist buccal mucosa. Head is atraumatic, normocephalic. No nasal drainage. ABDOMEN: Soft. Obese. Distended. Mild tenderness palpation left lower quadrant. NEUROLOGIC: Alert and oriented. Cranial nerves II through XII grossly intact. LABORATORY DATA: WBC 9.0 Hgb 9.3 down to 7.9 platelets 346. HGB 12.1 on 02/19 Sodium 134 potassium is 4.1 creatinine 0.8 Lactic acid 0.8 IMAGING: ASSESSMENT: 1. Abdominal pain and constipation. Possible ileus. Patient has had limited mobility since back surgery and has been taking narcotics for pain control 2. Prior history of constipation with narcotic use 3. Hyponatremia 4. Status post recent back surgery on 02/19/2024 5. Anemia. No active signs of bleeding. PLAN: -CT scan abdomen pelvis with oral and IV contrast ordered for further evaluation of abdominal pain -Okay for clear liquid diet -Agree with laxatives and stool softeners -Encourage patient to increase activity level -Encourage patient to decrease narcotic use Physician Wound/Ostomy Nurse note has been reviewed by physician. Signing provider agrees with the documented findings, assessment, and plan of care. Past Medical History Past Medical History: Hyperlipidemia, Hypertension, Musculoskeletal Disorder, Osteoarthritis (OA), Thyroid Disorder Additional Past Medical History / Comment(s): Pre-Diabetic, hx gout, lumbar spinal stenosis with pain, nerve pain, tingling and numbness in hands and feet, COVID JUNE 2021. 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 Past Anesthesia/Blood Transfusion Reactions: Family History of Problems w/ An esthesia, Motion Sickness Additional Past Anesthesia/Blood Transfusion Reaction / Comm: "Nephew went into anaphylactic shock, he was allergic to it." Patient states never heard of malignant hyperthermia. Past Psychological History: Depression Additional Psychological History / Comment(s): Mild depression at times. Smoking Status: Former smoker Past Alcohol Use History: None Reported Additional Past Alcohol Use History / Comment(s): Smoked 1ppd from age 20, quit 06/27/23. Past Drug Use History: None Reported - Past Family History Mother Family Medical History: Myocardial Infarction (OK) Medications and Allergies Home Medications Medication Instructions Recorded Confirmed Type Levothyroxine Sodium [Synthroid] 75 mcg PO DAILY 12/08/16 02/25/24 History traZODone HCL 50 mg PO HS 01/12/21 02/25/24 History Losartan/Hydrochlorothiazide 1 tab PO HS 11/14/21 02/25/24 History [Losartan-Hctz 100-25 mg Tab] amLODIPine BESYLATE 2.5 mg PO HS 02/15/24 02/25/24 History Cyclobenzaprine [Flexeril] 10 mg PO TID #21 tab 02/23/24 02/25/24 Rx Gabapentin [Neurontin] 300 mg PO TID #30 cap 02/23/24 02/25/24 Rx HYDROcodone/APAP 10-325MG [[place] 1 tab PO Q6HR PRN #28 tab 02/23/24 02/25/24 Rx 10-325] Lactulose 20 gm PO DAILY PRN #120 ml 02/23/24 02/25/24 Rx cefaDROXiL [Duricef] 500 mg PO Q12HR 5 Days #10 cap 02/23/24 02/25/24 Rx Albuterol Inhaler [Ventolin Hfa 2 puff INHALATION RT-Q6H PRN 02/25/24 02/25/24 History Inhaler] Colchicine [Mitigare] 0.6 mg PO DAILY PRN 02/25/24 02/25/24 History Allergies Allergy/AdvReac Type Severity Reaction Status Date / Time bupropion [From Zyban] Allergy Rash/Hives Verified 02/25/24 13:59 diclofenac [From Arthrotec] Allergy Anaphylaxis, Verified 02/25/24 13:59 TROUBLE BREATH misoprostol [From Arthrotec] Allergy Anaphylaxis Verified 02/25/24 13:59 Srofiak-MKQ-KpY Reductase AdvReac muscle pain Verified 02/25/24 13:59 Inhibitor [Hzspixu-Rxo-Lft Reductase Inhibitor] Surgical - Exam Vital Signs Temp Pulse Resp BP Pulse Ox 99.5 F 117 H 17 141/78 97 02/25/24 14:01 02/25/24 14:01 02/25/24 14:01 02/25/24 14:01 02/25/24 14:01 Results - Labs 02/27/24 05:00 02/27/24 05:00 Abnormal Lab Results - Last 24 Hours (Table) 02/26/24 02/26/24 02/26/24 Range/Units 14:30 14:30 19:55 RBC 2.89 L (4.30-5.90) m/uL Hgb 8.5 L (13.0-17.5) gm/dL Hct 25.9 L (39.0-53.0) % MPV (9.5-12.2) FL Immature Gran # (0.00-0.04) X 10*3/uL Monocytes # (0.20-1.00) X 10*3/uL Eosinophils # (0.04-0.35) X 10*3/uL ESR (0-20) mm/Hr Sodium 129 L (137-145) mmol/L Glucose 168 H (74-99) mg/dL Calcium 7.8 L (8.4-10.2) mg/dL Ur Random Sodium <20 L (40-220) mmol/L 02/27/24 02/27/24 Range/Units 05:00 05:00 RBC 2.75 L (4.30-5.90) m/uL Hgb 7.9 L (13.0-17.5) gm/dL Hct 24.3 L (39.0-53.0) % MPV 9.2 L (9.5-12.2) FL Immature Gran # 0.37 H (0.00-0.04) X 10*3/uL Monocytes # 1.33 H (0.20-1.00) X 10*3/uL Eosinophils # 0.39 H (0.04-0.35) X 10*3/uL ESR 43 H (0-20) mm/Hr Sodium 134 L (137-145) mmol/L Glucose 137 H (74-99) mg/dL Calcium 7.9 L (8.4-10.2) mg/dL Ur Random Sodium (40-220) mmol/L Microbiology - Last 24 Hours (Table) 02/25/24 17:59 Blood Culture - Preliminary Blood Diabetes panel 02/26/24 02/27/24 Range/Units 14:30 05:00 Sodium 129 L 134 L (137-145) mmol/L Potassium 4.0 4.1 (3.5-5.1) mmol/L Chloride 98 98 (98-107) mmol/L Carbon Dioxide 28 27.3 (22-30) mmol/L BUN 15 10.9 (9-20) mg/dL Creatinine 0.79 0.8 (0.66-1.25) mg/dL Glucose 168 H 137 H (74-99) mg/dL Calcium 7.8 L 7.9 L (8.4-10.2) mg/dL Calcium panel 02/26/24 02/27/24 Range/Units 14:30 05:00 Calcium 7.8 L 7.9 L (8.4-10.2) mg/dL Pituitary panel 02/26/24 02/27/24 Range/Units 14:30 05:00 Sodium 129 L 134 L (137-145) mmol/L Potassium 4.0 4.1 (3.5-5.1) mmol/L Chloride 98 98 (98-107) mmol/L Carbon Dioxide 28 27.3 (22-30) mmol/L BUN 15 10.9 (9-20) mg/dL Creatinine 0.79 0.8 (0.66-1.25) mg/dL Glucose 168 H 137 H (74-99) mg/dL Calcium 7.8 L 7.9 L (8.4-10.2) mg/dL Adrenal panel 02/26/24 02/27/24 Range/Units 14:30 05:00 Sodium 129 L 134 L (137-145) mmol/L Potassium 4.0 4.1 (3.5-5.1) mmol/L Chloride 98 98 (98-107) mmol/L Carbon Dioxide 28 27.3 (22-30) mmol/L BUN 15 10.9 (9-20) mg/dL Creatinine 0.79 0.8 (0.66-1.25) mg/dL Glucose 168 H 137 H (74-99) mg/dL Calcium 7.8 L 7.9 L (8.4-10.2) mg/dL
--- NOTE | 2024-02-27 16:32 | CT ---
EXAMINATION TYPE: CT abdomen pelvis w con DATE OF EXAM: 02/27/2024 4:26 PM COMPARISON: CT abdomen pelvis most recent from 08/05/2022. CLINICAL INDICATION: Male, 73 years old with history of abdominal pain, constipation; TECHNIQUE: Axial CT abdomen pelvis w con;Sagittal and coronal reformats were created on a separate w orkstation. Contrast used: mL of , (none if empty) Oral contrast used: (none if empty) CT DLP: mGycm, Automated exposure control for dose reduction was used. FINDINGS: LOWER CHEST: Unremarkable ABDOMEN LIVER: Simple appearing posterior right lobe cyst.e slightly complex appearing left hepatic lobe cyst s in the anterior abdomen. GALLBLADDER AND BILE DUCTS: Unremarkable. PANCREAS: Unremarkable. SPLEEN: Unremarkable. ADRENAL GLANDS: Heterogenous right adrenal mass measuring 48 x 45 mm KIDNEYS AND URETERS: No evidence of hydronephrosis or renal calculus. The ureters are unremarkable. PELVIS BLADDER: No evidence for wall thickening or mass given limitations of exam. REPRODUCTIVE: Unremarkable. ABDOMEN & PELVIS STOMACH AND BOWEL: No evidence of bowel obstruction. Colonic diverticulosis. Moderate amount stool th roughout the colon. And appendix is normal. PERITONEUM/RETROPERITONEUM: No evidence of pneumoperitoneum or free fluid. VASCULATURE: No evidence of aortic aneurysm. MUSCULOSKELETAL: No acute osseous abnormalities, postsurgical changes of the spine with gas and fluid tracking along the surgical bed., Left hip arthroplasty changes. Hardware appears intact. Changes in the spine appear intact. LYMPH NODES: No gross evidence for lymphadenopathy. SOFT TISSUE/ABDOMINAL WALL: Left fat-containing inguinal hernia. IMPRESSION: 1. Postsurgical changes of the spine with gas and fluid tracking along the surgical bed. Correlate w ith date of recent surgery and signs and symptoms to exclude underlying infection. 2. Moderate amount stool throughout colon. 3. Heterogenous right adrenal mass measuring 48 x 45 mm this is stable in size from prior 07/28/2022. Persistent not consistent with simple adrenal adenoma given washout characteristics on prior. 4. Colonic diverticulosis. [facility], , 02/27/2024 4:30 PM
--- NOTE | 2024-02-27 18:24 | P.PN ---
Subjective This is a pleasant 73 years old male with past medical history of multiple medical problems as below. Presents because of back pain and left foot numbness. Patient was recently discharged from this facility about 2 days ago where he has been seen for back pain and he underwent L2 pelvic decompression and fusion. He presents because left foot feeling numb. His back pain states is chronic for many years. He denies any new radiculopathy symptoms like weakness or tingling or numbness No chest pain or dyspnea. No specific GI/ symptoms Patient denies smoking alcohol or illicit drugs Patient on admission has low-grade fever 104 and today 99.9 He is mildly tachycardic 94. Labs showing WBC of 10.4, hemoglobin 9.3. INR 1.0. Sodium 129, rest of BMP is unremarkable Liver enzymes AST is mildly elevated 61 and ALT 53 with total bilirubin 0.9 Venous Doppler on admission was negative for acute DVT on The left lower extremity Patient was started on cefazolin 02/26 Patient with no new symptom His left leg mild cellulitis looks better, still mildly swollen and warm but none erythematous as on presentation No more fever today ID team on the case still do recommend to continue with cefazolin There was concerns about constipation since last 5 to 7-day, orthopedic team consulted general surgery. CT of the abdomen and pelvis done showing post surgical changes and there was some concerns about possible infection at the surgical site however on examination the wound looks very clean and healing with no signs of infection by inspection Also there is a right adrenal mass which looks stable from 2022. And there is moderate stool throughout the colon. Patient on lactulose and MiraLAX as needed. And Senokot as needed. Will add Colace as well Review of systems CONSTITUTIONAL: No fever, no malaise, no fatigue. HEENT: No recent visual problems or hearing problems. Denied any sore throat. GENITOURINARY: Denies any burning micturition, frequency, or urgency. MUSCULOSKELETAL/RHEUMATOLOGICAL: Denies any joint pain, swelling, or any muscle pain. ENDOCRINE: Denies any polyuria or polydipsia. Active Medications Generic Name Dose Route Start Last Admin Trade Name Freq PRN Reason Stop Dose Admin Acetaminophen 650 mg 02/25/24 17:07 02/25/24 18:22 Acetaminophen Tab 325 Mg Tab PO 650 mg Q6HR PRN Administration Mild Pain or Fever > 100.5 Hydrocodone Bitart/Acetaminophen 1 each 02/25/24 21:28 02/27/24 02:10 Hydrocodone/Apap 10-325mg 1 Each Tab PO 1 each Q6HR PRN Administration Pain Albuterol Sulfate 2.5 mg 02/25/24 21:28 Albuterol Nebulized 2.5 Mg/3 Ml INHALATION RT-Q6H PRN Shortness Of Breath Colchicine 0.6 mg 02/25/24 21:28 Colchicine 0.6 Mg Each PO DAILY PRN gout attack Cyclobenzaprine HCl 10 mg 02/25/24 21:28 Cyclobenzaprine 10 Mg Tab PO TID PRN Muscle Spasm Docusate Sodium 100 mg 02/27/24 21:00 Docusate 100 Mg Cap PO BID PABLO Famotidine 20 mg 02/27/24 21:00 Famotidine 20 Mg/2 Ml Vial IV Q12HR PABLO Gabapentin 300 mg 02/25/24 22:00 02/27/24 17:31 Gabapentin 300 Mg Cap PO 300 mg TID PABLO Administration Heparin Sodium (Porcine) 5,000 unit 02/27/24 21:00 Heparin Sodium,Porcine 5,000 Unit/Ml 1 Ml Vial SQ Q12HR PABLO Hydromorphone HCl 0.5 mg 02/25/24 17:07 Hydromorphone 0.5 Mg/0.5 Ml Syringe IVP Q3HR PRN Moderate Pain (Scale 4 to 6) Hydromorphone HCl 1 mg 02/25/24 17:07 02/26/24 16:32 Hydromorphone 1 Mg/Ml 1 Ml Syringe IVP 1 mg Q3HR PRN Administration Severe Pain (Scale 7 to 10) Lactulose 20 gm 02/25/24 21:28 02/27/24 08:42 Lactulose 20 Gm/30 Ml Cup PO 20 gm DAILY PRN Administration Constipation Levothyroxine Sodium 75 mcg 02/26/24 06:30 02/27/24 06:01 Levothyroxine 75 Mcg Tab PO 75 mcg DAILY@0630 [facility] Administration Naloxone HCl 0.2 mg 02/25/24 17:07 Naloxone 0.4 Mg/Ml 1 Ml Vial IV Q2M PRN Opioid Reversal Ondansetron HCl 4 mg 02/25/24 17:07 Ondansetron 4 Mg/2 Ml Vial IVP Q8HR PRN Nausea And Vomiting Polyethylene Glycol 17 gm 02/27/24 11:15 02/27/24 11:37 Polyethylene Glycol 3350 17 Gm Powd.Pack PO 17 gm DAILY PABLO Administration Senna 8.6 mg 02/27/24 11:07 02/27/24 11:37 Sennosides 8.6 Mg Tab PO 8.6 mg BID PRN Administration Constipation Trazodone HCl 50 mg 02/25/24 21:30 02/26/24 20:00 Trazodone Hcl 50 Mg Tab PO 50 mg HS PABLO Administration Objective - Vital Signs Vital signs: Vital Signs Temp 99.1 F 02/27/24 14:42 Pulse 98 02/27/24 14:42 Resp 17 02/27/24 14:42 BP 138/70 02/27/24 14:42 Pulse Ox 92 L 02/27/24 14:42 FiO2 Intake & Output 02/26/24 02/27/24 02/27/24 18:59 06:59 18:59 Intake Total 354 560 354 Output Total 300 200 Balance 54 560 154 Intake: Oral 354 560 354 Output: Urine 300 200 Other: Voiding Method Urinal Urinal Urinal # Voids 3 - Exam GENERAL: The patient is alert and oriented x3, not in any acute distress. Well developed, well nourished. HEENT: Pupils are round and equally reacting to light. EOMI. No scleral icterus. No conjunctival pallor. Normocephalic, atraumatic. No pharyngeal erythema. No thyromegaly. CARDIOVASCULAR: S1 and S2 present. No murmurs, rubs, or gallops. PULMONARY: Chest is clear to auscultation, no wheezing , no crackles. ABDOMEN: Soft, nontender, nondistended, normoactive bowel sounds. No palpable organomegaly. -MUSCULOSKELETAL: No joint swelling or deformity. Surgical wound looks clean and healing -EXTREMITIES: No cyanosis, clubbing, or pedal edema. Left lower extremity mild swelling and erythema. Improvement NEUROLOGICAL: Gross neurological examination did not reveal any focal deficits. SKIN: No rashes. no petechiae. - Labs CBC & Chem 7: 02/27/24 05:00 02/27/24 05:00 Labs: Abnormal Lab Results - Last 24 Hours (Table) 02/26/24 02/27/24 02/27/24 Range/Units 19:55 05:00 05:00 RBC 2.75 L (4.40-5.60) X 10*6/uL Hgb 7.9 L (13.0-17.0) g/dL Hct 24.3 L (39.6-50.0) % MPV 9.2 L (9.5-12.2) FL Immature Gran # 0.37 H (0.00-0.04) X 10*3/uL Monocytes # 1.33 H (0.20-1.00) X 10*3/uL Eosinophils # 0.39 H (0.04-0.35) X 10*3/uL ESR 43 H (0-20) mm/Hr Sodium 134 L (135-145) mmol/L Glucose 137 H (70-110) mg/dL Calcium 7.9 L (8.7-10.3) mg/dL Ur Random Sodium <20 L (40-220) mmol/L Microbiology - Last 24 Hours (Table) 02/25/24 17:59 Blood Culture - Preliminary Blood Assessment and Plan Assessment: Left lower foot cellulitis, mild and improving Hyponatremia, mild. Improved L1-S1 severe spondylosis with stenosis with bilateral lower extremity weakness and radiculopathy. Status post L2 to pelvic decompression and fusion with pelvic screws and L1-S1 laminectomy Constipation Hypertension Hyperlipidemia Hypothyroidism Osteoarthritis Plan: Continue with cefazolin Follow-up culture results Continue with gentle hydration Sodium level improved Consult infectious disease team Consult orthopedic team as patient has recent back surgery General Surgery evaluated the patient for constipation. CT of the abdomen reviewed. Continue with laxative and stool softeners Labs and medication were reviewed.. Continue same treatment. Continue with symptomatic treatment. Resume home medication. Monitor labs and vitals. DVT and GI prophylaxis. Further recommendations as per clinical course of the patient DVT prophylaxis: Subcutaneous heparin GI Prophylaxis: Pepcid PT/OT: Pending Prognosis is guarded
[2024-02-27] MEDS: DOCUSATE 100 MG CAP PO SCH (21:46)
[2024-02-27] MEDS: HEPARIN SODIUM,PORCINE 5,000 UNIT/ML 1 ML VIAL SQ SCH (21:47)
[2024-02-27] MEDS: FAMOTIDINE 20 MG/2 ML VIAL IV SCH (21:47)
[2024-02-27] MEDS ORDERED: VANCOMYCIN IV PER PHARMACY 1 EACH MISC MISCELLANE PRN (22:24)
--- NOTE | 2024-02-27 22:26 | P.PN ---
Subjective Progress Note Date: 02/27/24 Principal diagnosis: Reason for follow-up is fever left foot pain question of cellulitis Patient is a 73-year-old male with a past medical history significant for hypertension hyperlipidemia osteoarthritis thyroid disorder in this patient who recently underwent decompressive laminectomy of the lumbar spine with Dr. Devries presenting to the hospital concerning for increasing swelling and pain to the left foot and also pain to the lumbar spine area patient did have a low-grade fever and the concern for possible cellulitis prompting this consultation. On today's evaluation that is 02/27/2024,the patient did have improvement in his fever pattern and the patient is afebrile this morning patient is breathing comfortably no chest pain shortness of breath or cough still complaining of pain to the lower back area but no worsening pain and swelling to the left foot has decreased patient mention he did have a history of gout for which he used to take the colchicine. Patient white count is 9.01 creatinine 0.8 influenza RSV COVID testing negative x-ray of the foot did shows punched-out lesion involving the base of the first digit proximal phalanx concerning for gout Objective - Vital Signs Vital signs: Vital Signs Temp 98.3 F 02/27/24 07:00 Pulse 89 02/27/24 07:00 Resp 16 02/27/24 07:00 BP 113/72 02/27/24 07:00 Pulse Ox 96 02/27/24 07:00 FiO2 Intake & Output 02/26/24 02/27/24 02/27/24 18:59 06:59 18:59 Intake Total 354 560 118 Output Total 300 Balance 54 560 118 Intake: Oral 354 560 118 Output: Urine 300 Other: Voiding Method Urinal Urinal # Voids 3 - Exam GENERAL DESCRIPTION: An elderly male up in the chair in no distress RESPIRATORY SYSTEM: Unlabored breathing , decreased breath sounds at bases HEART: S1 S2 regular rate and rhythm , ABDOMEN: Soft , no tenderness EXTREMITIES: Left foot currently with no significant redness or drainage - Labs CBC & Chem 7: 02/27/24 05:00 02/27/24 05:00 Labs: Abnormal Lab Results - Last 24 Hours (Table) 02/26/24 02/26/24 02/26/24 Range/Units 14:30 14:30 19:55 RBC 2.89 L (4.30-5.90) m/uL Hgb 8.5 L (13.0-17.5) gm/dL Hct 25.9 L (39.0-53.0) % MPV (9.5-12.2) FL Immature Gran # (0.00-0.04) X 10*3/uL Monocytes # (0.20-1.00) X 10*3/uL Eosinophils # (0.04-0.35) X 10*3/uL Sodium 129 L (137-145) mmol/L Glucose 168 H (74-99) mg/dL Calcium 7.8 L (8.4-10.2) mg/dL Ur Random Sodium <20 L (40-220) mmol/L 02/27/24 02/27/24 Range/Units 05:00 05:00 RBC 2.75 L (4.30-5.90) m/uL Hgb 7.9 L (13.0-17.5) gm/dL Hct 24.3 L (39.0-53.0) % MPV 9.2 L (9.5-12.2) FL Immature Gran # 0.37 H (0.00-0.04) X 10*3/uL Monocytes # 1.33 H (0.20-1.00) X 10*3/uL Eosinophils # 0.39 H (0.04-0.35) X 10*3/uL Sodium 134 L (137-145) mmol/L Glucose 137 H (74-99) mg/dL Calcium 7.9 L (8.4-10.2) mg/dL Ur Random Sodium (40-220) mmol/L Microbiology - Last 24 Hours (Table) 02/25/24 17:59 Blood Culture - Preliminary Blood Assessment and Plan (1) Fever Current Visit: Yes Status: Acute Code(s): R50.9 - FEVER, UNSPECIFIED SNOMED Code(s): 590311658 (2) Cellulitis of left foot Current Visit: Yes Status: Acute Code(s): L03.116 - CELLULITIS OF LEFT LOWER LIMB SNOMED Code(s): 42105527824108673 Plan: 1patient presenting to the hospital with left lower extremity and foot swelling and pain however has very minimal erythema to the medial end of the left foot clinically doubt significant cellulitis patient however he is running a fever which is slightly concerning and recently did have extensive lumbar deco mpressive surgery however the surgical site incision looks clean with a staple intact without any drainage 2-blood culture have been obtained results will be followed CRP is elevated, the patient did tested negative for COVID-19 procalcitonin has been normal 3-patient x-ray of the left foot is suspicious for gout and may be responsible for his pain rather than cellulitis patient is on colchicine we will discontinue cefazolin and monitor the patient closely off antibiotic Dictation was produced using SNTMNT dictation software. please excuse any grammatical, word or spelling errors. Time with Patient: Less than 30
[2024-02-27] MEDS: VANCOMYCIN 2,000 MG in SODIUM CHLORIDE 0.9% 500 ML 500 ML IVPB SCH (23:24)
[2024-02-28] MEDS: CEFEPIME 2 GM in SODIUM CHLORIDE 0.9% 100 ML IVPB SCH (03:20)
[2024-02-28 06:51] LABS: Basophils # (A) 0.1 k/uL (0-0.2); Basophils % (A) 1 %; Eosinophils # (A) 0.2 k/uL (0-0.7); Eosinophils % (A) 3 %; HCT 26.5 % (39.0-53.0); HGB 8.9 gm/dL (13.0-17.5); Hypochromasia Slight; Lymphocytes # (A) 1.2 k/uL (1.0-4.8); Lymphocytes % (A) 14 %; MCH 29.9 pg (25.0-35.0); MCHC 33.5 g/dL (31.0-37.0); MCV 89.5 fL (80.0-100.0); Mean Platelet Volume 7.2; Monocytes # (A) 0.7 k/uL (0-1.0); Monocytes % (A) 8 %; Neutrophils # (A) 6.1 k/uL (1.3-7.7); Neutrophils % (A) 72 %; Platelet Count 458 k/uL (150-450); Poikilocytosis Slight; RBC 2.96 m/uL (4.30-5.90); RDW 14.1 % (11.5-15.5); WBC 8.5 k/uL (3.8-10.6)
[2024-02-28 07:20] LABS: African American GFR (CKD) >90 (>60 ml/min/1.73 sqM); Anion Gap 1 mmol/L; Blood Urea Nitrogen 8 mg/dL (9-20); Calcium 8.2 mg/dL (8.4-10.2); Carbon Dioxide 27 mmol/L (22-30); Chloride 104 mmol/L (98-107); Glucose 124 mg/dL (74-99); Non-African American GFR(CKD) >90 (>60 ml/min/1.73 sqM); Potassium 4.1 mmol/L (3.5-5.1); Sodium 132 mmol/L (137-145)
[2024-02-28] MEDS: LACTULOSE 20 GM/30 ML CUP PO SCH (08:48)
--- NOTE | 2024-02-28 13:39 | P.PN ---
Subjective Progress Note Date: 02/28/24 Principal diagnosis: 1. L1-S1 severe spondylosis with stenosis 2. L1-L2 facet cyst with severe stenosis 3. L2-L3 facet cyst with severe stenosis 4. L5-S1 and L4-L5 grade 1 spondylolisthesis 5. neurogenic claudication 6. bilateral lower extremity weakness 7. bilateral lower extremity radiculopathy 8. severe low back pain Objective - Vital Signs Vital signs: Vital Signs Temp 97.6 F 02/28/24 07:00 Pulse 76 02/28/24 07:00 Resp 17 02/28/24 07:00 BP 130/74 02/28/24 07:00 Pulse Ox 93 L 02/28/24 07:00 FiO2 Intake & Output 02/27/24 02/28/24 02/28/24 18:59 06:59 18:59 Intake Total 354 1040 0 Output Total 200 875 375 Balance 154 165 -375 Intake: Oral 354 1040 0 Output: Urine 200 875 375 Other: Voiding Method Urinal Urinal # Voids 2 # Bowel Movements 1 - Exam General: The patient is awake and alert, in no acute distress Skin: Skin is warm and dry with no obvious rashes or lesions. Surgical dressing appears to be clean, dry, intact. incision appears to be healing well. Trip well aligned and intact. Negative for any active drainage. Dressing appears to be clean, dry, and intact. Eye: Pupils are equal, round and reactive to light, extra-ocular movements are intact; there is normal conjunctiva bilaterally. Neck: The neck is supple, there is no tenderness and ROM intact. Cardiovascular: There is a regular rate and rhythm. No murmur, rub or gallop is appreciated. Respiratory: Respirations are non-labored, breath sounds are equal. Gastrointestinal: Soft, non-distended, non-tender abdomen. Back: There is no tenderness to palpation in the midline, paralumbar, parathoracic or buttocks region. There is no obvious deformity . Musculoskeletal: ROM limited secondary to pain and stiffness from surgical procedure. Right: Shoulder abduction 5/5, elbow flexors 5/5, wrist dorsiflexors 5/5. finger abductor 5/5, senior electrical design engineer 5/5, hip flexor 4/5, knee flexor 4/5, ankle dorsiflexor 4/5, ankle plantarflexion 4/5 and extensor halluci s 5/5. Left: Shoulder abduction 5/5, elbow flexors 5/5, wrist dorsiflexors 5/5. finger abductor 5/5, senior electrical design engineer 5/5, hip flexor 4/5, knee flexor 4/5, ankle dorsiflexor 4/5, ankle plantarflexion 4/5 and extensor hallucis 5/5. Neurological: CN 2-12 intact. There are no obvious motor or sensory deficits. Movement and coordination equal and intact. Sensory exam to light touch intact C5-T1 and intact from L2-S1. Reflexes 2/4 in bilateral upper and lower extremities. Negative Hoffmans, babinski, and clonus signs. Psychiatric: Cooperative, appropriate mood & affect, normal judgment. - Labs CBC & Chem 7: 02/28/24 06:18 02/28/24 06:18 Labs: Abnormal Lab Results - Last 24 Hours (Table) 02/28/24 02/28/24 Range/Units 06:18 06:18 RBC 2.96 L (4.30-5.90) m/uL Hgb 8.9 L (13.0-17.5) gm/dL Hct 26.5 L (39.0-53.0) % Plt Count 458 H (150-450) k/uL Sodium 132 L (137-145) mmol/L BUN 8 L (9-20) mg/dL Glucose 124 H (74-99) mg/dL Calcium 8.2 L (8.4-10.2) mg/dL Microbiology - Last 24 Hours (Table) 02/25/24 17:59 Blood Culture - Preliminary Blood Assessment and Plan Assessment: 1. L1-S1 severe spondylosis with stenosis 2. L1-L2 facet cyst with severe stenosis 3. L2-L3 facet cyst with severe stenosis 4. L5-S1 and L4-L5 grade 1 spondylolisthesis 5. neurogenic claudication 6. bilateral lower extremity weakness 7. bilateral lower extremity radiculopathy 8. severe low back pain 9. Acute on chronic gouty arthropathy left foot -Postop day #9 status post L2 to pelvis decompression and fusion with pelvic screws and L1-S1 laminectomy Plan: 1. L1-S1 severe spondylosis with stenosis; L1-L2 facet cyst with severe stenosis; L2-L3 facet cyst with severe stenosis; L5-S1 and L4-L5 grade 1 spondylolisthesis; neurogenic claudication; bilateral lower extremity weakness; bilateral lower extremity radiculopathy; severe low back pain; Acute on chronic gouty arthropathy left foot- surgery performed 02/19/2024L2 to pelvis decompression and fusion with pelvic screws and L1-S1 laminectomy. Patient re- presented the hospital a couple days ago due to left foot swelling and redness. Dressing appears to be clean, dry, intact. Negative for any drainage from incision. Incision is healing well. [place] well aligned. Weightbearing as tolerated with walker and brace on while up and about. Pain medication as needed. Patient is stable from orthopedic standpoint for discharge from the hospital. We do recommend patient to follow-up closely in the office with Dr. Devries for postoperative visits. We will defer the rest of the management to the primary medical team at this time. Orthopedics is signing off at this time. Please do not hesitate to contact us for any further questions. 2. Appreciate medical management 3. Pain management -[place]; Flexeril; gabapentin 4. DVT prophylaxis -heparin 5. GI prophylaxis - senna; MiraLAX; Pepcid; Colace 6. PT/OT -weightbearing as tolerated with walker and brace on while up and a bout 7. Encourage incentive spirometer use Time with Patient: Less than 30
--- NOTE | 2024-02-28 13:44 | P.PN ---
Subjective Progress Note Date: 02/28/24 SURGICAL PROGRESS NOTE CHIEF COMPLAINT: Back pain and leg pain HISTORY OF PRESENT ILLNESS: Surgical service following in regards to patient's constipation. Patient has had bowel movements. This morning they reported a large bowel movement. Patient now having multiple liquidy stools. Patient complains of back pain. Afebrile. WBC 8.5 Hgb 8.9 [address] tachycardia improved. CT scan abdomen pelvis reports postsurgical changes of the spine with gas and fluid tracking along the surgical bed. Moderate amount of stool throughout the colon. Heterogeneous right adrenal mass stable in size from 07/28/2022 colonic diverticulosis. Patient seen and examined with Dr. Haider PHYSICAL EXAM: VITAL SIGNS: Reviewed. GENERAL: Well-developed in no acute distress. ABDOMEN: Soft. obese. distended. nontender NEUROLOGIC: Alert and oriented. Cranial nerves II through XII grossly intact. ASSESSMENT: 1. Constipation. Patient has had limited mobility since back surgery and has been taking narcotics for pain control 2. Prior history of constipation with narcotic use 3. Hyponatremia 4. Status post recent back surgery on 02/19/2024 5. Anemia. No active signs of bleeding. PLAN: -2 L GoLytely bowel prep ordered for bowel cleanse for constipation -Continue lactulose and MiraLAX -Will hold on the Dulcolax suppository at this time Physician Electrical Laboratory Technician note has been reviewed by physician. Signing provider agrees with the documented findings, assessment, and plan of care. Objective - Vital Signs Vital signs: Vital Signs Temp 97.6 F 02/28/24 07:00 Pulse 76 02/28/24 07:00 Resp 17 02/28/24 07:00 BP 130/74 02/28/24 07:00 Pulse Ox 93 L 02/28/24 07:00 FiO2 Intake & Output 02/27/24 02/28/24 02/28/24 18:59 06:59 18:59 Intake Total 354 1040 0 Output Total 200 875 375 Balance 154 165 -375 Intake: Oral 354 1040 0 Output: Urine 200 875 375 Other: Voiding Method Urinal Urinal # Voids 2 # Bowel Movements 1 - Labs CBC & Chem 7: 02/28/24 06:18 02/28/24 06:18 Labs: Abnormal Lab Results - Last 24 Hours (Table) 02/28/24 02/28/24 Range/Units 06:18 06:18 RBC 2.96 L (4.30-5.90) m/uL Hgb 8.9 L (13.0-17.5) gm/dL Hct 26.5 L (39.0-53.0) % Plt Count 458 H (150-450) k/uL Sodium 132 L (137-145) mmol/L BUN 8 L (9-20) mg/dL Glucose 124 H (74-99) mg/dL Calcium 8.2 L (8.4-10.2) mg/dL Microbiology - Last 24 Hours (Table) 02/25/24 17:59 Blood Culture - Preliminary Blood
--- NOTE | 2024-02-28 15:57 | P.PN ---
Subjective Progress Note Date: 02/28/24 Principal diagnosis: Reason for follow-up is fever left foot pain question of cellulitis Patient is a 73-year-old male with a past medical history significant for hypertension hyperlipidemia osteoarthritis thyroid disorder in this patient who recently underwent decompressive laminectomy of the lumbar spine with Dr. Devries presenting to the hospital concerning for increasing swelling and pain to the left foot and also pain to the lumbar spine area patient did have a low-grade fever and the concern for possible cellulitis prompting this consultation. On today's evaluation that is 02/28/2024,the patient did have improvement his fever pattern patient is currently breathing comfortable room air no vomiting diarrhea any other changes reported. Patient white count is 8.5 ESR is 43, creatinine 0.71 blood culture currently pending Objective - Vital Signs Vital signs: Vital Signs Temp 97.6 F 02/28/24 07:00 Pulse 76 02/28/24 07:00 Resp 17 02/28/24 07:00 BP 130/74 02/28/24 07:00 Pulse Ox 93 L 02/28/24 07:00 FiO2 Intake & Output 02/27/24 02/28/24 02/28/24 18:59 06:59 18:59 Intake Total 354 1040 0 Output Total 200 875 375 Balance 154 165 -375 Intake: Oral 354 1040 0 Output: Urine 200 875 375 Other: Voiding Method Urinal Urinal # Voids 2 # Bowel Movements 1 - Exam GENERAL DESCRIPTION: An elderly male up in the chair in no distress RESPIRATORY SYSTEM: Unlabored breathing , decreased breath sounds at bases HEART: S1 S2 regular rate and rhythm , ABDOMEN: Soft , no tenderness EXTREMITIES: Left foot currently with no significant redness or drainage - Labs CBC & Chem 7: 02/28/24 06:18 02/28/24 06:18 Labs: Abnormal Lab Results - Last 24 Hours (Table) 02/28/24 02/28/24 Range/Units 06:18 06:18 RBC 2.96 L (4.30-5.90) m/uL Hgb 8.9 L (13.0-17.5) gm/dL Hct 26.5 L (39.0-53.0) % Plt Count 458 H (150-450) k/uL Sodium 132 L (137-145) mmol/L BUN 8 L (9-20) mg/dL Glucose 124 H (74-99) mg/dL Calcium 8.2 L (8.4-10.2) mg/dL Microbiology - Last 24 Hours (Table) 02/25/24 17:59 Blood Culture - Preliminary Blood Assessment and Plan (1) Fever Current Visit: Yes Status: Acute Code(s): R50.9 - FEVER, UNSPECIFIED SNOMED Code(s): 145412180 (2) Cellulitis of left foot Current Visit: Yes Status: Acute Code(s): L03.116 - CELLULITIS OF LEFT LOWER LIMB SNOMED Code(s): 72827916061039057 Plan: 1patient presenting to the hospital with left lower extremity and foot swelling and pain however has very minimal erythema to the medial end of the left foot clinically doubt significant cellulitis patient however he is running a fever which is slightly concerning and recently did have extensive lumbar decompressive surgery however the surgical site incision looks clean with a staple intact without any drainage 2-blood culture have been obtained results will be followed CRP is elevated, the patient did tested negative for COVID-19 procalcitonin has been normal 3-patient x-ray of the left foot is suspicious for gout and may be responsible for his pain rather than cellulitis patient is on colchicine 4patient did have a CT abdominal pelvis done by surgery did show significant changes to the lumbar spine with the fluid and air patient incision looks clean patient has been medically started vancomycin and cefepime await orthopedics evaluation of the CT and need for any drainage Dictation was produced using [employer] dictation software. please excuse any grammatical, word or spelling errors. Time with Patient: Less than 30
[2024-02-28] MEDS: PEG 3350 (236 GM/BTL) + LYTES 4,000 ML BOTTLE PO ONE (16:14)
[2024-02-28] MEDS: bisacodyL 10 MG SUPP RECTAL STA (16:42)
--- NOTE | 2024-02-28 21:29 | P.PN ---
Subjective This is a pleasant 73 years old male with past medical history of multiple medical problems as below. Presents because of back pain and left foot numbness. Patient was recently discharged from this facility about 2 days ago where he has been seen for back pain and he underwent L2 pelvic decompression and fusion. He presents because left foot feeling numb. His back pain states is chronic for many years. He denies any new radiculopathy symptoms like weakness or tingling or numbness No chest pain or dyspnea. No specific GI/ symptoms Patient denies smoking alcohol or illicit drugs Patient on admission has low-grade fever 104 and today 99.9 He is mildly tachycardic 94. Labs showing WBC of 10.4, hemoglobin 9.3. INR 1.0. Sodium 129, rest of BMP is unremarkable Liver enzymes AST is mildly elevated 61 and ALT 53 with total bilirubin 0.9 Venous Doppler on admission was negative for acute DVT on The left lower extremity Patient was started on cefazolin 02/26 Patient with no new symptom His left leg mild cellulitis looks better, still mildly swollen and warm but none erythematous as on presentation No more fever today ID team on the case still do recommend to continue with cefazolin There was concerns about constipation since last 5 to 7-day, orthopedic team consulted general surgery. CT of the abdomen and pelvis done showing post surgical changes and there was some concerns about possible infection at the surgical site however on examination the wound looks very clean and healing with no signs of infection by inspection Also there is a right adrenal mass which looks stable from 2022. And there is moderate stool throughout the colon. Patient on lactulose and MiraLAX as needed. And Senokot as needed. Will add Colace as well 02/27 Patient complaining mainly from low back pain at the level of the lower end of his back incision. The wound itself looks closed kathy intact, no dehiscence, no discharge, surrounding cellulitis However patient still has not fever 99.9 yesterday. he is afebrile today. He is kept on IV vancomycin and Zosyn for possible infection. At the beginning he thought it is lower leg cellulitis however it was only mildly pink, mildly swollen gets resolved quickly within 24 hours or so. Alisha ent continued to have fever to yesterday. CT of the abdomen and pelvis showing postsurgical changes with air-fluid level at the surgical bed which is suspicious for infection per radiologist. Pro- Calcitonin is negative. Patient with no leukocytosis Patient currently covered with broad-spectrum antibiotics Objective - Vital Signs Vital signs: Vital Signs Temp 99.0 F 02/28/24 14:18 Pulse 84 02/28/24 14:18 Resp 17 02/28/24 14:18 BP 116/64 02/28/24 14:18 Pulse Ox 95 02/28/24 14:18 FiO2 Intake & Output 02/27/24 02/28/24 02/28/24 18:59 06:59 18:59 Intake Total 354 1040 258 Output Total 200 875 975 Balance 154 165 -717 Intake: Oral 354 1040 258 Output: Urine 200 875 975 Other: Voiding Method Urinal Urinal # Voids 2 # Bowel Movements 1 - Exam GENERAL: The patient is alert and oriented x3, not in any acute distress. Well developed, well nourished. HEENT: Pupils are round and equally reacting to light. EOMI. No scleral icterus. No conjunctival pallor. Normocephalic, atraumatic. No pharyngeal erythema. No thyromegaly. CARDIOVASCULAR: S1 and S2 present. No murmurs, rubs, or gallops. PULMONARY: Chest is clear to auscultation, no wheezing , no crackles. ABDOMEN: Soft, nontender, nondistended, normoactive bowel sounds. No palpable organomegaly. -MUSCULOSKELETAL: No joint swelling or deformity. Surgical wound looks clean and healing -EXTREMITIES: No cyanosis, clubbing, or pedal edema. Left lower extremity mild swelling and erythema. Improvement NEUROLOGICAL: Gross neurological examination did not reveal any focal deficits. SKIN: No rashes. no petechiae. - Labs CBC & Chem 7: 02/28/24 06:18 02/28/24 06:18 Labs: Abnormal Lab Results - Last 24 Hours (Table) 02/28/24 02/28/24 Range/Units 06:18 06:18 RBC 2.96 L (4.30-5.90) m/uL Hgb 8.9 L (13.0-17.5) gm/dL Hct 26.5 L (39.0-53.0) % Plt Count 458 H (150-450) k/uL Sodium 132 L (137-145) mmol/L BUN 8 L (9-20) mg/dL Glucose 124 H (74-99) mg/dL Calcium 8.2 L (8.4-10.2) mg/dL Microbiology - Last 24 Hours (Table) 02/25/24 17:59 Blood Culture - Preliminary Blood Assessment and Plan Assessment: Left lower foot cellulitis, mild and improving. Differential diagnosis including gout, also mild. Improving L1-S1 severe spondylosis with stenosis with bilateral lower extremity weakness and radiculopathy. Status post L2 to pelvic decompression and fusion with pelvic screws and L1-S1 laminectomy, repeat CAT scan of the abdomen showing air-fluid level along the surgical site but. Hyponatremia, mild. Improved Constipation Hypertension Hyperlipidemia Hypothyroidism Osteoarthritis Plan: Continue with cefepime and IV vancomycin Follow-up culture results Continue with gentle hydration Sodium level improved Consult infectious disease team Consult orthopedic team as patient has recent back surgery General Surgery evaluated the patient for constipation. CT of the abdomen reviewed. Continue with laxative and stool softeners Labs and medication were reviewed.. Continue same treatment. Continue with symptomatic treatment. Resume home medication. Monitor labs and vitals. DVT and GI prophylaxis. Further recommendations as per clinical course of the patient DVT prophylaxis: Subcutaneous heparin GI Prophylaxis: Pepcid PT/OT: Pending Prognosis is guarded
[2024-02-29] MEDS: CEFEPIME 2 GM in SODIUM CHLORIDE 0.9% 100 ML IVPB SCH (03:48)
[2024-02-29 08:44] LABS: BUN/Creat Ratio 7.71 Ratio (12.00-20.00); Blood Urea Nitrogen 5.4 mg/dL (9.0-27.0); Calcium 8.2 mg/dL (8.7-10.3); Carbon Dioxide 25.1 mmol/L (21.6-31.8); Chloride 102 mmol/L (96-109); Glucose 149 mg/dL (70-110); Potassium 4.4 mmol/L (3.5-5.5); Sodium 137 mmol/L (135-145)
--- NOTE | 2024-02-29 10:16 | P.PN ---
Subjective Progress Note Date: 02/29/24 SURGICAL PROGRESS NOTE CHIEF COMPLAINT: Back pain and leg pain HISTORY OF PRESENT ILLNESS: Surgical service following in regards to patient's constipation. Patient did 2 L of the GoLytely bowel prep. Patient reports multiple bowel movements. And still stooling this morning. Afebrile. Sodium 137 Patient seen and examined with Dr. Haider PHYSICAL EXAM: VITAL SIGNS: Reviewed. GENERAL: Well-developed in no acute distress. ABDOMEN: Soft. obese. nontender NEUROLOGIC: Alert and oriented. Cranial nerves II through XII grossly intact. ASSESSMENT: 1. Constipation. Patient has had limited mobility since back surgery and has been taking narcotics for pain control 2. Prior history of constipation with narcotic use 3. Hyponatremia improved 4. Status post recent back surgery on 02/19/2024 5. Anemia. No active signs of bleeding. PLAN: -Patient with multiple bowel movements and feeling better. Will advance diet to regular. -Continue laxatives -Recommend staying on a good bowel regimen after discharge Physician Tobacco Baler note has been reviewed by physician. Signing provider agrees with the documented findings, assessment, and plan of care. Objective - Vital Signs Vital signs: Vital Signs Temp 98.6 F 02/29/24 07:00 Pulse 75 02/29/24 07:00 Resp 15 02/29/24 07:00 BP 119/64 02/29/24 07:00 Pulse Ox 99 02/29/24 07:00 FiO2 Intake & Output 02/28/24 02/29/24 02/29/24 18:59 06:59 18:59 Intake Total 258 1120 Output Total 975 Balance -717 1120 Intake: Oral 258 1120 Output: Urine 975 Other: Voiding Method Urinal Urinal # Voids 3 # Bowel Movements 1 5 - Labs CBC & Chem 7: 02/28/24 06:18 02/29/24 05:37 Labs: Abnormal Lab Results - Last 24 Hours (Table) 02/29/24 Range/Units 05:37 BUN 5.4 L (9.0-27.0) mg/dL BUN/Creatinine Ratio 7.71 L (12.00-20.00) Ratio Glucose 149 H (70-110) mg/dL Calcium 8.2 L (8.7-10.3) mg/dL Microbiology - Last 24 Hours (Table) 02/25/24 17:59 Blood Culture - Preliminary Blood
--- NOTE | 2024-02-29 13:05 | P.PN ---
Subjective This is a pleasant 73 years old male with past medical history of multiple medical problems as below. Presents because of back pain and left foot numbness. Patient was recently discharged from this facility about 2 days ago where he has been seen for back pain and he underwent L2 pelvic decompression and fusion. He presents because left foot feeling numb. His back pain states is chronic for many years. He denies any new radiculopathy symptoms like weakness or tingling or numbness No chest pain or dyspnea. No specific GI/ symptoms Patient denies smoking alcohol or illicit drugs Patient on admission has low-grade fever 104 and today 99.9 He is mildly tachycardic 94. Labs showing WBC of 10.4, hemoglobin 9.3. INR 1.0. Sodium 129, rest of BMP is unremarkable Liver enzymes AST is mildly elevated 61 and ALT 53 with total bilirubin 0.9 Venous Doppler on admission was negative for acute DVT on The left lower extremity Patient was started on cefazolin 02/26 Patient with no new symptom His left leg mild cellulitis looks better, still mildly swollen and warm but none erythematous as on presentation No more fever today ID team on the case still do recommend to continue with cefazolin There was concerns about constipation since last 5 to 7-day, orthopedic team consulted general surgery. CT of the abdomen and pelvis done showing post surgical changes and there was some concerns about possible infection at the surgical site however on examination the wound looks very clean and healing with no signs of infection by inspection Also there is a right adrenal mass which looks stable from 2022. And there is moderate stool throughout the colon. Patient on lactulose and MiraLAX as needed. And Senokot as needed. Will add Colace as well 02/27 Patient complaining mainly from low back pain at the level of the lower end of his back incision. The wound itself looks closed kathy intact, no dehiscence, no discharge, surrounding cellulitis However patient still has not fever 99.9 yesterday. he is afebrile today. He is kept on IV vancomycin and Zosyn for possible infection. At the beginning he thought it is lower leg cellulitis however it was only mildly pink, mildly swollen gets resolved quickly within 24 hours or so. Alisha ent continued to have fever to yesterday. CT of the abdomen and pelvis showing postsurgical changes with air-fluid level at the surgical bed which is suspicious for infection per radiologist. Pro- Calcitonin is negative. Patient with no leukocytosis Patient currently covered with broad-spectrum antibiotics 02/28 Patient is having frequent bowel movement, he has 5 loose bowel movement. He takes several laxative. Stool softeners were held today. General surgery following for the patient for his constipation problem. Patient remains on broad-spectrum antibiotics with IV vancomycin and cefepime, the source was thought to be left lower cellulitis which is significantly improved earlier on admission however send scan showing possible air-fluid collection and the lumbar surgical site. Wound looks clean and healing therefore orthopedic team signed off the case. We consulted IR team for a spiration of the wound. Objective - Vital Signs Vital signs: Vital Signs Temp 98.6 F 02/29/24 07:00 Pulse 75 02/29/24 07:00 Resp 15 02/29/24 07:00 BP 119/64 02/29/24 07:00 Pulse Ox 99 02/29/24 07:00 FiO2 Intake & Output 02/28/24 02/29/24 02/29/24 18:59 06:59 18:59 Intake Total 258 1120 0 Output Total 975 Balance -717 1120 0 Intake: Oral 258 1120 0 Output: Urine 975 Other: Voiding Method Urinal Urinal # Voids 3 # Bowel Movements 1 5 - Exam GENERAL: The patient is alert and oriented x3, not in any acute distress. Well developed, well nourished. HEENT: Pupils are round and equally reacting to light. EOMI. No scleral icterus. No conjunctival pallor. Normocephalic, atraumatic. No pharyngeal erythema. No thyromegaly. CARDIOVASCULAR: S1 and S2 present. No murmurs, rubs, or gallops. PULMONARY: Chest is clear to auscultation, no wheezing , no crackles. ABDOMEN: Soft, nontender, nondistended, normoactive bowel sounds. No palpable organomegaly. -MUSCULOSKELETAL: No joint swelling or deformity. Surgical wound looks clean and healing -EXTREMITIES: No cyanosis, clubbing, or pedal edema. Left lower extremity mild swelling and erythema. Improvement NEUROLOGICAL: Gross neurological examination did not reveal any focal deficits. SKIN: No rashes. no petechiae. - Labs CBC & Chem 7: 02/28/24 06:18 02/29/24 05:37 Labs: Abnormal Lab Results - Last 24 Hours (Table) 02/29/24 Range/Units 05:37 BUN 5.4 L (9.0-27.0) mg/dL BUN/Creatinine Ratio 7.71 L (12.00-20.00) Ratio Glucose 149 H (70-110) mg/dL Calcium 8.2 L (8.7-10.3) mg/dL Microbiology - Last 24 Hours (Table) 02/25/24 17:59 Blood Culture - Preliminary Blood Assessment and Plan Assessment: Left lower foot cellulitis, mild and improving. Differential diagnosis incl uding gout, also mild. Improving L1-S1 severe spondylosis with stenosis with bilateral lower extremity weakness and radiculopathy. Status post L2 to pelvic decompression and fusion with pelvic screws and L1-S1 laminectomy, repeat CAT scan of the abdomen showing air- fluid level along the surgical site but. Hyponatremia, mild. Improved Constipation Hypertension Hyperlipidemia Hypothyroidism Osteoarthritis Plan: Continue with cefepime and IV vancomycin Follow-up culture results Continue with gentle hydration Sodium level improved IR team are consulted to drain fluid from lower back surgical site Hold laxative Consult infectious disease team Consult orthopedic team as patient has recent back surgery General Surgery evaluated the patient for constipation. CT of the abdomen reviewed. Continue with laxative and stool softeners Labs and medication were reviewed.. Continue same treatment. Continue with symptomatic treatment. Resume home medication. Monitor labs and vitals. DVT and GI prophylaxis. Further recommendations as per clinical course of the p atient DVT prophylaxis: Subcutaneous heparin GI Prophylaxis: Pepcid PT/OT: Pending Prognosis is guarded
--- NOTE | 2024-02-29 15:49 | US ---
EXAMINATION TYPE: US asp abscess/hemat/cyst DATE OF EXAM: 02/29/2024 2:16 PM COMPARISON: Location. CT CLINICAL INDICATION:Male, 73 years old with history of potential fluid collections in the back. TECHNIQUE: Ultrasound guided fluid aspiration. PROCEDURE: Informed consent was obtained. Risks including bleeding, infection, damage to surrounding structures, and the potential need for further procedures as well as benefits were explained. All patient questi ons were answered. Initial ultrasound images were taken which showed safest access to fluid collection located at the ba ck. The patient was prepped and draped. Under sterile technique with 1% lidocaine local anesthesia a 5-Australian one-step needle/catheter was inserted under ultrasound guidance. Next a second location was identified in attempted to be aspirated with a 5 Australian one-step needle ca theter. The patient tolerated the procedure well without complication. The patient was transferred to [facility] in stable condition. IMPRESSION: Attempted aspiration at 2 different sites of subcutaneous suspected fluid collections no fluid was dr ained from the inferior location and a small amount of bloody fluid was drained from the more superio r location. [facility], , 02/29/2024 3:46 PM
--- NOTE | 2024-02-29 15:53 | P.PN ---
Subjective Progress Note Date: 02/29/24 Principal diagnosis: Reason for follow-up is fever left foot pain question of cellulitis Patient is a 73-year-old male with a past medical history significant for hypertension hyperlipidemia osteoarthritis thyroid disorder in this patient who recently underwent decompressive laminectomy of the lumbar spine with Dr. Devries presenting to the hospital concerning for increasing swelling and pain to the left foot and also pain to the lumbar spine area patient did have a low-grade fever and the concern for possible cellulitis prompting this consultation. On today's evaluation that is 02/29/2024, the patient continues to be afebrile, the patient is on room air and breathing comfortably, the Pt denies having any chest pain or cough, the patient denies having any abdominal pain no vomiting did have a few bowel movements denies any worsening pain to the back area. Patient did have a creatinine of 0.7 no CBC was done today blood culture has been negative Objective - Vital Signs Vital signs: Vital Signs Temp 98.6 F 02/29/24 07:00 Pulse 75 02/29/24 07:00 Resp 15 02/29/24 07:00 BP 119/64 02/29/24 07:00 Pulse Ox 99 02/29/24 07:00 FiO2 Intake & Output 02/28/24 02/29/24 02/29/24 18:59 06:59 18:59 Intake Total 258 1120 0 Output Total 975 Balance -717 1120 0 Intake: Oral 258 1120 0 Output: Urine 975 Other: Voiding Method Urinal Urinal # Voids 3 # Bowel Movements 1 5 - Exam GENERAL DESCRIPTION: An elderly male up in the chair in no distress RESPIRATORY SYSTEM: Unlabored breathing , decreased breath sounds at bases HEART: S1 S2 regular rate and rhythm , ABDOMEN: Soft , no tenderness Examination of the lumbar surgical incision with the daughter Marion intact incision is clean no swelling redness or drainage daughter agreed no clinical signs of cellulitis at this point EXTREMITIES: Left foot currently with no significant redness or drainage - Labs CBC & Chem 7: 02/28/24 06:18 02/29/24 05:37 Labs: Abnormal Lab Results - Last 24 Hours (Table) 02/29/24 Range/Units 05:37 BUN 5.4 L (9.0-27.0) mg/dL BUN/Creatinine Ratio 7.71 L (12.00-20.00) Ratio Glucose 149 H (70-110) mg/dL Calcium 8.2 L (8.7-10.3) mg/dL Microbiology - Last 24 Hours (Table) 02/25/24 17:59 Blood Culture - Preliminary Blood Assessment and Plan (1) Fever Current Visit: Yes Status: Acute Code(s): R50.9 - FEVER, UNSPECIFIED SNOMED Code(s): 270392200 (2) Cellulitis of left foot Current Visit: Yes Status: Acute Code(s): L03.116 - CELLULITIS OF LEFT LOWER LIMB SNOMED Code(s): 96101437357708819 Plan: 1patient presenting to the hospital with left lower extremity and foot swelling and pain however has very minimal erythema to the medial end of the left foot clinically doubt significant cellulitis patient however he is running a fever which is slightly concerning and recently did have extensive lumbar decompressive surgery however the surgical site incision looks clean with a staple intact without any drainage 2-blood culture have been obtained results will be followed CRP is elevated, the patient did tested negative for COVID-19 procalcitonin has been normal 3-patient x-ray of the left foot is suspicious for gout and may be responsible for his pain rather than cellulitis patient is on colchicine 4patient did have a CT abdominal pelvis done by surgery did show significant changes to the lumbar spine with the fluid and air however patient incision looks clean and incision was examined with the patient daughter who agreed no evidence of any erythema drainage or suspicious for infection keeping in mind patient did have a previous history of MRSA infection may consider course of oral doxycycline on discharge elevated close outpatient follow-up Multiple question concerns were answered in layman term to the daughter satisfaction at the bedside Dictation was produced using [employer] dictation software. please excuse any grammatical, word or spelling errors. Time with Patient: Less than 30
[2024-03-01] MEDS: CEFEPIME 2 GM in SODIUM CHLORIDE 0.9% 100 ML IVPB SCH (01:33)
[2024-03-01 10:24] LABS: African American GFR (CKD) >90 (>60 ml/min/1.73 sqM); Non-African American GFR(CKD) >90 (>60 ml/min/1.73 sqM)
[2024-03-01] MEDS: VANCOMYCIN TROUGH DUE 1 EACH MISC MISCELLANE ONE (11:35)
[2024-03-01] MEDS: CYCLOBENZAPRINE 10 MG TAB PO PRN (12:35)
--- NOTE | 2024-03-01 13:23 | P.PN ---
Subjective Progress Note Date: 03/01/24 * 73 years old male with past medical history of multiple medical problems as below. Presents because of back pain and left foot numbness. Patient was recently discharged from this facility about 2 days ago where he has been seen for back pain and he underwent L2 pelvic decompression and fusion. He presents because left foot feeling numb. His back pain states is chronic for many years. He denies any new radiculopathy symptoms like weakness or tingling or numbness No chest pain or dyspnea. No specific GI/ symptoms Patient denies smoking alcohol or illicit drugs Patient on admission has low-grade fever 104 and today 99.9 He is mildly tachycardic 94. Labs showing WBC of 10.4, hemoglobin 9.3. INR 1.0. Sodium 129, rest of BMP is unremarkable Liver enzymes AST is mildly elevated 61 and ALT 53 with total bilirubin 0.9 Venous Doppler on admission was negative for acute DVT on The left lower extre mity Patient was started on cefazolin 02/26 Patient with no new symptom His left leg mild cellulitis looks better, still mildly swollen and warm but none erythematous as on presentation No more fever today ID team on the case still do recommend to continue with cefazolin There was concerns about constipation since last 5 to 7-day, orthopedic team consulted general surgery. CT of the abdomen and pelvis done showing postsurgical changes and there was some concerns about possible infection at the surgical site however on examination the wound looks very clean and healing with no signs of infection by inspection Also there is a right adrenal mass which looks stable from 2022. And there is moderate stool throughout the colon. Patient on lactulose and MiraLAX as needed. And Senokot as needed. Will add Colace as well 02/27 Patient complaining mainly from low back pain at the level of the lower end of his back incision. The wound itself looks closed kathy intact, no dehiscence, no discharge, surrounding cellulitis However patient still has not fever 99.9 yesterday. he is afebrile today. He is kept on IV vancomycin and Zosyn for possible infection. At the beginning he thought it is lower leg cellulitis however it was only mildly pink, mildly swollen gets resolved quickly within 24 hours or so. Patient continued to have fever to yesterday. CT of the abdomen and pelvis showing postsurgical changes with air-fluid level at the surgical bed which is suspicious for infection per radiologist. Pro- Calcitonin is negative. Patient with no leukocytosis Patient currently covered with broad-spectrum antibiotics 02/28 Patient is having frequent bowel movement, he has 5 loose bowel movement. He takes several laxative. Stool softeners were held today. General surgery following for the patient for his constipation problem. Patient remains on broad-spectrum antibiotics with IV vancomycin and cefepime, the source was thought to be left lower cellulitis which is significantly improved earlier on admission however send scan showing possible air-fluid collection and the lumbar surgical site. Wound looks clean and healing therefore orthopedic team signed off the case. We consulted IR team for aspiration of the wound. 03/01 : Patient seen and evaluated at bedside, blood work reviewed, vitals reviewed, does complain of pain, will monitor overnight continue IV antibiotics EXAM GENERAL: The patient is alert and oriented x3, Well developed, well nourished. HEENT: Pupils are round and equally reacting to light. EOMI. No scleral icterus. No conjunctival pallor. Normocephalic, atraumatic. No pharyngeal erythema. No thyromegaly. CARDIOVASCULAR: S1 and S2 present. No murmurs, rubs, or gallops. PULMONARY: Chest is clear to auscultation, no wheezing , no crackles. ABDOMEN: Soft, nontender, nondistended, normoactive bowel sounds. No palpable organomegaly. MUSCULOSKELETAL: Surgical wound looks clean and healing EXTREMITIES: Left lower extremity mild swelling and erythema. Improvement NEUROLOGICAL: Gross neurological examination did not reveal any focal deficits. Assessment and Plan * Left lower foot cellulitis, * L1-S1 severe spondylosis with stenosis with bilateral lower extremity weakness and radiculopathy. * Status post L2 to pelvic decompression and fusion with pelvic screws and L1-S1 laminectomy, repeat CAT scan of the abdomen showing air-fluid level along the surgical site but. * Hyponatremia, mild * Constipation * Hypertension * Hyperlipidemia * Hypothyroidism * Osteoarthritis Plan: Continue with cefepime and IV vancomycin, infectious disease consulted following Follow-up culture results IR team are consulted to drain fluid from lower back surgical site Consult orthopedic team as patient has recent back surgery General Surgery evaluated the patient for constipation. CT of the abdomen reviewed. Continue with laxative and stool softeners Labs and medication were reviewed. DVT prophylaxis: Subcutaneous heparin GI Prophylaxis: Pepcid Objective - Vital Signs Vital signs: Vital Signs Temp 97.7 F 03/01/24 07:05 Pulse 71 03/01/24 07:05 Resp 18 03/01/24 07:05 BP 171/73 03/01/24 07:05 Pulse Ox 96 03/01/24 07:05 FiO2 Intake & Output 02/29/24 03/01/24 03/01/24 18:59 06:59 18:59 Intake Total 0 118 Output Total 325 925 Balance -325 -925 118 Intake: Oral 0 118 Output: Urine 325 925 Other: Voiding Method Urinal Urinal # Bowel Movements 1 - Labs CBC & Chem 7: 02/28/24 06:18 03/01/24 09:58 Labs: Microbiology - Last 24 Hours (Table) 02/29/24 14:15 Gram Stain - Preliminary Back
--- NOTE | 2024-03-01 14:19 | P.PN ---
Subjective Progress Note Date: 03/01/24 Principal diagnosis: Reason for follow-up is fever left foot pain question of cellulitis Patient is a 73-year-old male with a past medical history significant for hypertension hyperlipidemia osteoarthritis thyroid disorder in this patient who recently underwent decompressive laminectomy of the lumbar spine with Dr. Devries presenting to the hospital concerning for increasing swelling and pain to the left foot and also pain to the lumbar spine area patient did have a low-grade fever and the concern for possible cellulitis prompting this consultation. On today's evaluation that is 03/01/2024, patient did not have any fever and denies any chills, patient is breathing comfortably on room air, patient with no chest pain or cough patient did not have any abdominal pain nausea vomiting or any loose stools, still complaining of pain to the lower back but no worsening. Patient did have a creatinine 0.66 Vanco trough is 14.5 blood cultures so far negative Objective - Vital Signs Vital signs: Vital Signs Temp 97.7 F 03/01/24 07:05 Pulse 71 03/01/24 07:05 Resp 18 03/01/24 07:05 BP 171/73 03/01/24 07:05 Pulse Ox 96 03/01/24 07:05 FiO2 Intake & Output 02/29/24 03/01/24 03/01/24 18:59 06:59 18:59 Intake Total 0 118 Output Total 325 925 Balance -325 -925 118 Intake: Oral 0 118 Output: Urine 325 925 Other: Voiding Method Urinal Urinal # Bowel Movements 1 - Exam GENERAL DESCRIPTION: An elderly male up in the chair in no distress RESPIRATORY SYSTEM: Unlabored breathing , decreased breath sounds at bases HEART: S1 S2 regular rate and rhythm , ABDOMEN: Soft , no tenderness EXTREMITIES: Left foot currently with no significant redness or drainage - Labs CBC & Chem 7: 02/28/24 06:18 03/01/24 09:58 Labs: Microbiology - Last 24 Hours (Table) 02/29/24 14:15 Gram Stain - Preliminary Back Assessment and Plan (1) Fever Current Visit: Yes Status: Acute Code(s): R50.9 - FEVER, UNSPECIFIED SNOMED Code(s): 501261820 (2) Cellulitis of left foot Current Visit: Yes Status: Acute Code(s): L03.116 - CELLULITIS OF LEFT LOWER LIMB SNOMED Code(s): 30488329340314833 Plan: 1patient presenting to the hospital with left lower extremity and foot swelling and pain however has very minimal erythema to the medial end of the left foot clinically doubt significant cellulitis patient however he is running a fever which is slightly concerning and recently did have extensive lumbar decompressive surgery however the surgical site incision looks clean with a staple intact without any drainage 2-blood culture have been obtained results will be followed CRP is elevated, the patient did tested negative for COVID-19 procalcitonin has been normal 3-patient x-ray of the left foot is suspicious for gout and may be responsible for his pain rather than cellulitis patient is on colchicine 4patient did have a CT abdominal pelvis done by surgery did show significant changes to the lumbar spine with the fluid and air however patient incision looks clean patient is status post attempted aspiration by IR they got a small amount of blood which has been sent for culture results will be followed for now continue cefepime and vancomycin Dictation was produced using [employer] dictation software. please excuse any grammatical, word or spelling errors. Time with Patient: Less than 30
--- NOTE | 2024-03-01 15:34 | P.PN ---
Subjective Progress Note Date: 03/01/24 CHIEF COMPLAINT: Constipation HISTORY OF PRESENT ILLNESS: The patient is a 73-year-old male being followed by the general surgery service due to chronic constipation. Patient is having bowel movements. He is tolerating diet. He is now on a bowel regimen. He tolerated regular diet for lunch. He is resting comfortably. ROS: No reports of nausea and vomiting. No fevers or chills. No new chest pain. No productive sputum PHYSICAL EXAM: VITAL SIGNS: Reviewed CONSTITUTIONAL: Well developed and in no acute distress. EYES: Conjuctivae without sclera icterus. Extraocular movements grossly intact. HEAD, EARS, NOSE, THROAT: Moist buccal mucosa. Head is atraumatic, normocephalic. Hears conversational speech. No nasal drainage. RESPIRATORY: Non-labored respirations and equal bilateral excursions. CARDIOVASCULAR: Palpable 2+ radial pulses. ABDOMEN: Obese. No peritonitis. MUSCULOSKELETAL: No gross deformity of the lower extremities noted. SKIN: Good skin turgor. Well perfused. NEUROLOGIC: Cranial nerves II through XII grossly intact. No focal or lateralizing signs. PSYCH: Appropriate affect. Alert and oriented to person, place and time. CLINICAL LABS: Reviewed. Creatinine within normal limits. Vancomycin level 14.5. ASSESSMENT: 1. Constipation 2. Chronic lower back pain with lumbar decompression, recent PLAN: 1. Continue with bowel regimen. 2. Caution of narcotics which slows GI motility and high risk for constipation Objective - Vital Signs Vital signs: Vital Signs Temp 98.0 F 03/01/24 14:25 Pulse 83 03/01/24 14:25 Resp 18 03/01/24 14:25 BP 145/85 03/01/24 14:25 Pulse Ox 99 03/01/24 14:25 FiO2 Intake & Output 02/29/24 03/01/24 03/01/24 18:59 06:59 18:59 Intake Total 0 708 Output Total 099 064 1975 Balance -868 -275 -417 Intake: Oral 0 708 Output: Urine 634 257 2319 Other: Voiding Method Urinal Urinal # Bowel Movements 1 - Labs CBC & Chem 7: 02/28/24 06:18 03/01/24 09:58 Labs: Microbiology - Last 24 Hours (Table) 02/29/24 14:15 Gram Stain - Preliminary Back
[2024-03-01] MEDS: HYDROmorphone 0.5 MG/0.5 ML SYRINGE IVP PRN (17:40)
[2024-03-02 10:00] LABS: BUN/Creat Ratio 8.57 Ratio (12.00-20.00); Calcium 8.3 mg/dL (8.7-10.3); Carbon Dioxide 25.5 mmol/L (21.6-31.8); Chloride 103 mmol/L (96-109); Glucose 108 mg/dL (70-110); Potassium 4.4 mmol/L (3.5-5.5); Sodium 136 mmol/L (135-145)
--- NOTE | 2024-03-02 11:46 | P.PN ---
Subjective Progress Note Date: 03/02/24 * 73 years old male with past medical history of multiple medical problems as below. Presents because of back pain and left foot numbness. Patient was recently discharged from this facility about 2 days ago where he has been seen for back pain and he underwent L2 pelvic decompression and fusion. He presents because left foot feeling numb. His back pain states is chronic for many years. He denies any new radiculopathy symptoms like weakness or tingling or numbness No chest pain or dyspnea. No specific GI/ symptoms Patient denies smoking alcohol or illicit drugs Patient on admission has low-grade fever 104 and today 99.9 He is mildly tachycardic 94. Labs showing WBC of 10.4, hemoglobin 9.3. INR 1.0. Sodium 129, rest of BMP is unremarkable Liver enzymes AST is mildly elevated 61 and ALT 53 with total bilirubin 0.9 Venous Doppler on admission was negative for acute DVT on The left lower extre mity Patient was started on cefazolin 02/26 Patient with no new symptom His left leg mild cellulitis looks better, still mildly swollen and warm but none erythematous as on presentation No more fever today ID team on the case still do recommend to continue with cefazolin There was concerns about constipation since last 5 to 7-day, orthopedic team consulted general surgery. CT of the abdomen and pelvis done showing postsurgical changes and there was some concerns about possible infection at the surgical site however on examination the wound looks very clean and healing with no signs of infection by inspection Also there is a right adrenal mass which looks stable from 2022. And there is moderate stool throughout the colon. Patient on lactulose and MiraLAX as needed. And Senokot as needed. Will add Colace as well 02/27 Patient complaining mainly from low back pain at the level of the lower end of his back incision. The wound itself looks closed kathy intact, no dehiscence, no discharge, surrounding cellulitis However patient still has not fever 99.9 yesterday. he is afebrile today. He is kept on IV vancomycin and Zosyn for possible infection. At the beginning he thought it is lower leg cellulitis however it was only mildly pink, mildly swollen gets resolved quickly within 24 hours or so. Patient continued to have fever to yesterday. CT of the abdomen and pelvis showing postsurgical changes with air-fluid level at the surgical bed which is suspicious for infection per radiologist. Pro- Calcitonin is negative. Patient with no leukocytosis Patient currently covered with broad-spectrum antibiotics 02/28 Patient is having frequent bowel movement, he has 5 loose bowel movement. He takes several laxative. Stool softeners were held today. General surgery following for the patient for his constipation problem. Patient remains on broad-spectrum antibiotics with IV vancomycin and cefepime, the source was thought to be left lower cellulitis which is significantly improved earlier on admission however send scan showing possible air-fluid collection and the lumbar surgical site. Wound looks clean and healing therefore orthopedic team signed off the case. We consulted IR team for aspiration of the wound. 03/01 : Patient seen and evaluated at bedside, blood work reviewed, vitals reviewed, does complain of pain, will monitor overnight continue IV antibiotics 03/02- patient seen and evaluated at bedside, remains afebrile, remains on room air, serum chemistry showed normal creatinine, calcium of 8.3, continue on vancomycin.. Continue cefepime, back pain has improved EXAM GENERAL: The patient is alert and oriented x3, Well developed, well nourished. HEENT: Pupils are round and equally reacting to light. EOMI. No scleral icterus. No conjunctival pallor. Normocephalic, atraumatic. No pharyngeal erythema. No thyromegaly. CARDIOVASCULAR: S1 and S2 present. No murmurs, rubs, or gallops. PULMONARY: Chest is clear to auscultation, no wheezing , no crackles. ABDOMEN: Soft, nontender, nondistended, normoactive bowel sounds. No palpable organomegaly. MUSCULOSKELETAL: Surgical wound looks clean and healing, incision intact EXTREMITIES: Left lower extremity mild swelling and erythema. Improvement NEUROLOGICAL: Gross neurological examination did not reveal any focal deficits. Assessment and Plan * Left lower foot cellulitis, * L1-S1 severe spondylosis with stenosis with bilateral lower extremity weakness and radiculopathy. * Status post L2 to pelvic decompression and fusion with pelvic screws and L1-S1 laminectomy, repeat CAT scan of the abdomen showing air-fluid level along the surgical site but. * Hyponatremia, mild * Constipation * Hypertension * Hyperlipidemia * Hypothyroidism * Osteoarthritis Plan: Continue with cefepime and IV vancomycin, infectious disease consulted following Follow-up culture results, s/p IR guided aspiration as well on 02/28 IR team are consulted to drain fluid from lower back surgical site 02/28 completed Consult orthopedic team as patient has recent back surgery General Surgery evaluated the patient for constipation. CT of the abdomen reviewed. Continue with laxative and stool softeners Labs and medication were reviewed. DVT prophylaxis: Subcutaneous heparin GI Prophylaxis: Pepcid Objective - Vital Signs Vital signs: Vital Signs Temp 98.1 F 03/02/24 07:15 Pulse 78 03/02/24 07:15 Resp 17 03/02/24 07:15 BP 125/65 03/02/24 07:15 Pulse Ox 97 03/02/24 07:15 FiO2 Intake & Output 03/01/24 03/02/24 03/02/24 18:59 06:59 18:59 Intake Total 708 Output Total 1575 1180 Balance -867 -1180 Intake: Oral 708 Output: Urine 1575 1180 Other: Voiding Method Urinal Urinal - Labs CBC & Chem 7: 02/28/24 06:18 03/02/24 06:14 Labs: Abnormal Lab Results - Last 24 Hours (Table) 03/02/24 Range/Units 06:14 BUN 6.0 L (9.0-27.0) mg/dL BUN/Creatinine Ratio 8.57 L (12.00-20.00) Ratio Calcium 8.3 L (8.7-10.3) mg/dL Microbiology - Last 24 Hours (Table) 02/25/24 17:59 Blood Culture - Final Blood 02/29/24 14:15 Gram Stain - Preliminary Back Wound Culture - Preliminary
[2024-03-02 13:21] LABS: HCT 27.9 % (39.6-50.0); HGB 8.6 g/dL (13.0-17.0); MCH 28.9 pg (27.0-32.0); MCHC 30.8 g/dL (32.0-37.0); MCV 93.6 FL (80.0-97.0); Mean Platelet Volume 9.3 FL (9.5-12.2); NRBC Per 100 WBC 0 X 10*3/uL (0.00-0.01); Platelet Count 543 X 10*3/uL (140-440); RBC 2.98 X 10*6/uL (4.40-5.60); RDW 14.1 % (11.5-14.5); WBC 9.33 X 10*3/uL (4.50-10.00)
--- NOTE | 2024-03-02 14:06 | P.PN ---
Subjective Progress Note Date: 03/02/24 CHIEF COMPLAINT: Constipation HISTORY OF PRESENT ILLNESS: The patient is a 73-year-old male being followed by the general surgery service due to chronic constipation. Yesterday and today he reports having bowel habits however not recorded according to nursing. He is sitting up in a chair. His main concern includes high blood pressure. Reports of taking blood pressure medications prior to his current admission. He also reports his blood pressure systolic was over 190s however not recorded. He is very concerned. ROS: No reports of nausea and vomiting. No fevers or chills. No new chest pa in. No productive sputum. Morbid obesity, BMI 40.4. PHYSICAL EXAM: VITAL SIGNS: Reviewed CONSTITUTIONAL: Well developed and in no acute distress. EYES: Conjuctivae without sclera icterus. Extraocular movements grossly intact. HEAD, EARS, NOSE, THROAT: Moist buccal mucosa. Head is atraumatic, normocephalic. Hears conversational speech. No nasal drainage. RESPIRATORY: Non-labored respirations and equal bilateral excursions. CARDIOVASCULAR: Palpable 2+ radial pulses. ABDOMEN: Obese. No peritonitis. Nontender. MUSCULOSKELETAL: No gross deformity of the lower extremities noted. SKIN: Good skin turgor. Well perfused. NEUROLOGIC: Cranial nerves II through XII grossly intact. No focal or lateralizing signs. PSYCH: Appropriate affect. Alert and oriented to person, place and time. CLINICAL LABS: Reviewed. WBC normal. Hemoglobin 8.6, anemia. Platelets trending upward 543, thrombocytosis. ASSESSMENT: 1. Constipation 2. Chronic lower back pain with lumbar decompression, recent 3. Hypertensive heart disease 4. Morbid obesity excess calories, BMI 40.4. PLAN: 1. Patient is concerned for his recent elevated blood pressure and has been off his medications since admission. At home, usually takes amlodipine including combination hydrochlorothiazide and losartan. May need to resume. 2. Continue bowel regimen as he is on narcotics. 3. Monitor anemia as hemoglobin less than 10.0 new thrombocytosis. Objective - Vital Signs Vital signs: Vital Signs Temp 98.1 F 03/02/24 07:15 Pulse 78 03/02/24 07:15 Resp 17 03/02/24 07:15 BP 125/65 03/02/24 07:15 Pulse Ox 97 03/02/24 07:15 FiO2 Intake & Output 03/01/24 03/02/24 03/02/24 18:59 06:59 18:59 Intake Total 708 240 Output Total 1575 1180 Balance -867 -1180 240 Intake: Oral 708 240 Output: Urine 1575 1180 Other: Voiding Method Urinal Urinal - Labs CBC & Chem 7: 03/02/24 06:14 03/02/24 06:14 Labs: Abnormal Lab Results - Last 24 Hours (Table) 03/02/24 03/02/24 Range/Units 06:14 06:14 RBC 2.98 L (4.40-5.60) X 10*6/uL Hgb 8.6 L (13.0-17.0) g/dL Hct 27.9 L (39.6-50.0) % MCHC 30.8 L (32.0-37.0) g/dL Plt Count 543 H (140-440) X 10*3/uL MPV 9.3 L (9.5-12.2) FL BUN 6.0 L (9.0-27.0) mg/dL BUN/Creatinine Ratio 8.57 L (12.00-20.00) Ratio Calcium 8.3 L (8.7-10.3) mg/dL Microbiology - Last 24 Hours (Table) 02/25/24 17:59 Blood Culture - Final Blood 02/29/24 14:15 Gram Stain - Preliminary Back Wound Culture - Preliminary
[2024-03-03 08:40] LABS: HCT 28.2 % (39.6-50.0); HGB 8.8 g/dL (13.0-17.0); MCH 28.5 pg (27.0-32.0); MCHC 31.2 g/dL (32.0-37.0); MCV 91.3 FL (80.0-97.0); Mean Platelet Volume 9.2 FL (9.5-12.2); NRBC Per 100 WBC 0 X 10*3/uL (0.00-0.01); Platelet Count 597 X 10*3/uL (140-440); RBC 3.09 X 10*6/uL (4.40-5.60); WBC 10.56 X 10*3/uL (4.50-10.00)
--- NOTE | 2024-03-03 08:58 | P.PN ---
Subjective Progress Note Date: 03/02/24 Principal diagnosis: Reason for follow-up is fever left foot pain question of cellulitis Patient is a 73-year-old male with a past medical history significant for hypertension hyperlipidemia osteoarthritis thyroid disorder in this patient who recently underwent decompressive laminectomy of the lumbar spine with Dr. Devries presenting to the hospital concerning for increasing swelling and pain to the left foot and also pain to the lumbar spine area patient did have a low-grade fever and the concern for possible cellulitis prompting this consultation. On today's evaluation that is 03/02/2024, Patient is afebrile patient is currently on room air and denies having any shortness of breath, the patient denies any chest pain or cough, the patient denies any nausea vomiting did not have any abdominal pain and no diarrhea still complaining of pain to the lower back area but no worsening. Patient white count is 9.33 creatinine 0.7 Vanco trough is 14.5 culture has been negative so far Objective - Vital Signs Vital signs: Vital Signs Temp 98.1 F 03/02/24 07:15 Pulse 78 03/02/24 07:15 Resp 17 03/02/24 07:15 BP 125/65 03/02/24 07:15 Pulse Ox 97 03/02/24 07:15 FiO2 Intake & Output 03/01/24 03/02/24 03/02/24 18:59 06:59 18:59 Intake Total 708 240 Output Total 1575 1180 Balance -867 -1180 240 Intake: Oral 708 240 Output: Urine 1575 1180 Other: Voiding Method Urinal Urinal - Exam GENERAL DESCRIPTION: An elderly male up in the chair in no distress RESPIRATORY SYSTEM: Unlabored breathing , decreased breath sounds at bases HEART: S1 S2 regular rate and rhythm , ABDOMEN: Soft , no tenderness EXTREMITIES: Left foot currently with no significant redness or drainage - Labs CBC & Chem 7: 03/03/24 04:17 03/02/24 06:14 Labs: Abnormal Lab Results - Last 24 Hours (Table) 03/02/24 Range/Units 06:14 BUN 6.0 L (9.0-27.0) mg/dL BUN/Creatinine Ratio 8.57 L (12.00-20.00) Ratio Calcium 8.3 L (8.7-10.3) mg/dL Microbiology - Last 24 Hours (Table) 02/25/24 17:59 Blood Culture - Final Blood 02/29/24 14:15 Gram Stain - Preliminary Back Wound Culture - Preliminary Assessment and Plan (1) Fever Current Visit: Yes Status: Acute Code(s): R50.9 - FEVER, UNSPECIFIED SNOMED Code(s): 399025038 (2) Cellulitis of left foot Current Visit: Yes Status: Acute Code(s): L03.116 - CELLULITIS OF LEFT LOWER LIMB SNOMED Code(s): 88598268649135317 Plan: 1patient presenting to the hospital with left lower extremity and foot swelling and pain however has very minimal erythema to the medial end of the left foot clinically doubt significant cellulitis patient however he is running a fever which is slightly concerning and recently did have extensive lumbar decompressive surgery however the surgical site incision looks clean with a staple intact without any drainage 2-blood culture have been obtained results will be followed CRP is elevated, the patient did tested negative for COVID-19 procalcitonin has been normal 3-patient x-ray of the left foot is suspicious for gout and may be responsible for his pain rather than cellulitis patient is on colchicine 4patient did have a CT abdominal pelvis done by surgery did show significant changes to the lumbar spine with the fluid and air however patient incision looks clean patient is status post attempted aspiration by IR they got a small amount of blood which has been sent for culture results which are currently pending, patient is currently covered with cefepime and vancomycin however if the culture negative recommend discontinue antibiotics Dictation was produced using [employer] dictation software. please excuse any grammatical, word or spelling errors. Time with Patient: Less than 30
[2024-03-03 09:02] LABS: BUN/Creat Ratio 8.86 Ratio (12.00-20.00); Blood Urea Nitrogen 6.2 mg/dL (9.0-27.0); Calcium 8.4 mg/dL (8.7-10.3); Carbon Dioxide 23.8 mmol/L (21.6-31.8); Chloride 102 mmol/L (96-109); Glucose 118 mg/dL (70-110); Potassium 4.5 mmol/L (3.5-5.5); Sodium 135 mmol/L (135-145)
--- NOTE | 2024-03-03 10:37 | P.PN ---
Subjective Progress Note Date: 03/03/24 SURGICAL PROGRESS NOTE CHIEF COMPLAINT: Back pain and leg pain HISTORY OF PRESENT ILLNESS: Surgical service following in regards to patient's constipation. Patient has been having bowel movements. He has been up and ambulating. Patient is refused his laxatives. He has been reporting back pain to the nursing staff. Afebrile. WBC 10.5 hgb 8.8 plt 597 PHYSICAL EXAM: VITAL SIGNS: Reviewed. GENERAL: Well-developed in no acute distress. ABDOMEN: Soft. obese. nontender NEUROLOGIC: Alert and oriented. Cranial nerves II through XII grossly intact. ASSESSMENT: 1. Constipation. Patient has had limited mobility since back surgery and has been taking narcotics for pain control 2. Prior history of constipation with narcotic use 3. Hyponatremia improved 4. Status post recent back surgery on 02/19/2024 5. Anemia. No active signs of bleeding. PLAN: -Continue regular diet -Encourage patient to ambulate -Recommend staying on a good bowel regimen after discharge Physician Electric Track Switch Maintainer note has been reviewed by physician. Signing provider agrees with the documented findings, assessment, and plan of care. Objective - Vital Signs Vital signs: Vital Signs Temp 98.1 F 03/03/24 07:00 Pulse 78 03/03/24 07:00 Resp 16 03/03/24 07:00 BP 130/72 03/03/24 07:00 Pulse Ox 94 L 03/03/24 07:00 FiO2 Intake & Output 03/02/24 03/03/24 03/03/24 18:59 06:59 18:59 Intake Total 358 Output Total 950 800 Balance -592 -800 Intake: Oral 358 Output: Urine 950 800 Other: Voiding Method Urinal Urinal # Voids 2 2 # Bowel Movements 2 - Labs CBC & Chem 7: 03/03/24 04:17 03/03/24 04:17 Labs: Abnormal Lab Results - Last 24 Hours (Table) 03/02/24 03/03/24 03/03/24 Range/Units 06:14 04:17 04:17 WBC 10.56 H (4.50-10.00) X 10*3/uL RBC 2.98 L 3.09 L (4.40-5.60) X 10*6/uL Hgb 8.6 L 8.8 L (13.0-17.0) g/dL Hct 27.9 L 28.2 L (39.6-50.0) % MCHC 30.8 L 31.2 L (32.0-37.0) g/dL Plt Count 543 H 597 H (140-440) X 10*3/uL MPV 9.3 L 9.2 L (9.5-12.2) FL BUN 6.2 L (9.0-27.0) mg/dL BUN/Creatinine Ratio 8.86 L (12.00-20.00) Ratio Glucose 118 H (70-110) mg/dL Calcium 8.4 L (8.7-10.3) mg/dL C-Reactive Protein 6.50 H (0.00-0.80) mg/dL Microbiology - Last 24 Hours (Table) 02/29/24 14:15 Anaerobic Culture - Preliminary Back 02/29/24 14:15 Gram Stain - Final Back Wound Culture - Final
--- NOTE | 2024-03-03 21:22 | P.PN ---
Subjective Progress Note Date: 03/03/24 Principal diagnosis: Reason for follow-up is fever left foot pain question of cellulitis Patient is a 73-year-old male with a past medical history significant for hypertension hyperlipidemia osteoarthritis thyroid disorder in this patient who recently underwent decompressive laminectomy of the lumbar spine with Dr. Devries presenting to the hospital concerning for increasing swelling and pain to the left foot and also pain to the lumbar spine area patient did have a low-grade fever and the concern for possible cellulitis prompting this consultation. On today's evaluation that is 03/03/2024, patient has been afebrile, patient is breathing comfortably and is currently on room air, patient denies having any significant cough no chest pain, patient denies nausea vomiting or diarrhea and no abdominal pain, still complaining of pain to the lower back area but no worsening. Patient white count is 10.56, creatinine is 0.7 cultures from the ultrasound cardiovascular so far negative Objective - Vital Signs Vital signs: Vital Signs Temp 98.1 F 03/03/24 07:00 Pulse 78 03/03/24 07:00 Resp 16 03/03/24 07:00 BP 130/72 03/03/24 07:00 Pulse Ox 94 L 03/03/24 07:00 FiO2 Intake & Output 03/02/24 03/03/24 03/03/24 18:59 06:59 18:59 Intake Total 358 Output Total 950 800 Balance -592 -800 Intake: Oral 358 Output: Urine 950 800 Other: Voiding Method Urinal Urinal # Voids 2 2 1 # Bowel Movements 2 - Exam GENERAL DESCRIPTION: An elderly male up in the chair in no distress RESPIRATORY SYSTEM: Unlabored breathing , decreased breath sounds at bases HEART: S1 S2 regular rate and rhythm , ABDOMEN: Soft , no tenderness EXTREMITIES: Left foot currently with no significant redness or drainage - Labs CBC & Chem 7: 03/03/24 04:17 03/03/24 04:17 Labs: Abnormal Lab Results - Last 24 Hours (Table) 03/02/24 03/03/24 03/03/24 Range/Units 06:14 04:17 04:17 WBC 10.56 H (4.50-10.00) X 10*3/uL RBC 2.98 L 3.09 L (4.40-5.60) X 10*6/uL Hgb 8.6 L 8.8 L (13.0-17.0) g/dL Hct 27.9 L 28.2 L (39.6-50.0) % MCHC 30.8 L 31.2 L (32.0-37.0) g/dL Plt Count 543 H 597 H (140-440) X 10*3/uL MPV 9.3 L 9.2 L (9.5-12.2) FL BUN 6.2 L (9.0-27.0) mg/dL BUN/Creatinine Ratio 8.86 L (12.00-20.00) Ratio Glucose 118 H (70-110) mg/dL Calcium 8.4 L (8.7-10.3) mg/dL C-Reactive Protein 6.50 H (0.00-0.80) mg/dL Microbiology - Last 24 Hours (Table) 02/29/24 14:15 Anaerobic Culture - Preliminary Back 02/29/24 14:15 Gram Stain - Final Back Wound Culture - Final Assessment and Plan (1) Fever Current Visit: Yes Status: Acute Code(s): R50.9 - FEVER, UNSPECIFIED SNOMED Code(s): 348093663 (2) Cellulitis of left foot Current Visit: Yes Status: Acute Code(s): L03.116 - CELLULITIS OF LEFT LOWER LIMB SNOMED Code(s): 77486044060333374 Plan: 1patient presenting to the hospital with left lower extremity and foot swelling and pain however has very minimal erythema to the medial end of the left foot clinically doubt significant cellulitis patient however he is running a fever which is slightly concerning and recently did have extensive lumbar decompressive surgery however the surgical site incision looks clean with a staple intact without any drainage 2-blood culture have been obtained results will be followed CRP is elevated, the patient did tested negative for COVID-19 procalcitonin has been normal 3-patient x-ray of the left foot is suspicious for gout and may be responsible for his pain rather than cellulitis patient is on colchicine 4patient did have a CT abdominal pelvis done by surgery did show significant changes to the lumbar spine with the fluid and air however patient incision looks clean patient is status post attempted aspiration by IR they got a small amount of blood which has been sent for culture results which are so far negative we will go ahead and discontinue vancomycin and cefepime and monitor the patient closely off antibiotic Dictation was produced using [employer] dictation software. please excuse any grammatical, word or spelling errors. Time with Patient: Less than 30
[2024-03-04 03:54] VITALS: RESP 16
--- NOTE | 2024-03-04 05:44 | P.PN ---
Subjective Progress Note Date: 03/03/24 73 years old male with past medical history of multiple medical problems as below. Presents because of back pain and left foot numbness. Patient was recently discharged from this facility about 2 days ago where he has been seen for back pain and he underwent L2 pelvic decompression and fusion. He presents because left foot feeling numb. His back pain states is chronic for many years. He denies any new radiculopathy symptoms like weakness or tingling or numbness No chest pain or dyspnea. No specific GI/ symptoms Patient denies smoking alcohol or illicit drugs Patient on admission has low-grade fever 104 and today 99.9 He is mildly tachycardic 94. Labs showing WBC of 10.4, hemoglobin 9.3. INR 1.0. Sodium 129, rest of BMP is unremarkable Liver enzymes AST is mildly elevated 61 and ALT 53 with total bilirubin 0.9 Venous Doppler on admission was negative for acute DVT on The left lower ext remity Patient was started on cefazolin 02/26 Patient with no new symptom His left leg mild cellulitis looks better, still mildly swollen and warm but none erythematous as on presentation No more fever today ID team on the case still do recommend to continue with cefazolin There was concerns about constipation since last 5 to 7-day, orthopedic team consulted general surgery. CT of the abdomen and pelvis done showing postsurgical changes and there was some concerns about possible infection at the surgical site however on examination the wound looks very clean and healing with no signs of infection by inspection Also there is a right adrenal mass which looks stable from 2022. And there is m oderate stool throughout the colon. Patient on lactulose and MiraLAX as needed. And Senokot as needed. Will add Colace as well 02/27 Patient complaining mainly from low back pain at the level of the lower end of his back incision. The wound itself looks closed kathy intact, no dehiscence, no discharge, surrounding cellulitis However patient still has not fever 99.9 yesterday. he is afebrile today. He is kept on IV vancomycin and Zosyn for possible infection. At the beginning he thought it is lower leg cellulitis however it was only mildly pink, mildly swollen gets resolved quickly within 24 hours or so. Patient continued to have fever to yesterday. CT of the abdomen and pelvis showing postsurgical changes with air-fluid level at the surgical bed which is suspicious for infection per radiologist. Pro- Calcitonin is negative. Patient with no leukocytosis Patient currently covered with broad-spectrum antibiotics 02/28 Patient is having frequent bowel movement, he has 5 loose bowel movement. He takes several laxative. Stool softeners were held today. General surgery foll owing for the patient for his constipation problem. Patient remains on broad-spectrum antibiotics with IV vancomycin and cefepime, the source was thought to be left lower cellulitis which is significantly improved earlier on admission however send scan showing possible air-fluid collection and the lumbar surgical site. Wound looks clean and healing therefore orthopedic team signed off the case. We consulted IR team for aspiration of the wound. 03/01 : Patient seen and evaluated at bedside, blood work reviewed, vitals reviewed, does complain of pain, will monitor overnight continue IV antibiotics 03/02- patient seen and evaluated at bedside, remains afebrile, remains on room air, serum chemistry showed normal creatinine, calcium of 8.3, continue on vancomycin.. Continue cefepime, back pain has improved 03/03/2024 Patient is seen in follow-up this morning no acute overnight issues. General surgery following for constipation and patient is having bowel movements we will continue with scheduled bowel regimen as well as as needed. Cultures have been negative and infectious disease following being monitored closely off antibiotic therapy. Will discuss further regarding discharge planning. Orthopedics has evaluated the patient recommending keeping outpatient follow-up appointment as scheduled. EXAM GENERAL: The patient is alert and oriented x3, Well developed, well nourished. HEENT: Pupils are round and equally reacting to light. EOMI. No scleral icterus. No conjunctival pallor. Normocephalic, atraumatic. No pharyngeal erythema. No thyromegaly. CARDIOVASCULAR: S1 and S2 present. No murmurs, rubs, or gallops. PULMONARY: Chest is clear to auscultation, no wheezing , no crackles. ABDOMEN: Soft, nontender, nondistended, normoactive bowel sounds. No palpable organomegaly. MUSCULOSKELETAL: Surgical wound looks clean and healing, incision intact EXTREMITIES: Left lower extremity mild swelling and erythema. Improvement NEUROLOGICAL: Gross neurological examination did not reveal any focal deficits. Diffusely weak Assessment and Plan * Left lower foot cellulitis, present on admission. Cultures are negative and antibiotics have been discontinued 03/03/2024 * L1-S1 severe spondylosis with stenosis with bilateral lower extremity weakness and radiculopathy. * Status post L2 to pelvic decompression and fusion with pelvic screws and L1-S1 laminectomy, repeat CAT scan of the abdomen showing air-fluid level along the surgical site but. * Hyponatremia, mild * Constipation, improving and having bowel movements * Hypertension * Hyperlipidemia * Hypothyroidism * Osteoarthritis * GI prophylaxis * DVT prophylaxis * Obesity with a BMI of 40.4 * Full code Plan: Continue with current medications and regimen with multiple consultations following. Antibiotics discontinued as cultures have been negative and will be monitored off antibiotic therapy. Will follow-up on discharge planning Orthopedics has evaluated the patient and signed off recommending outpatient follow-up appointment as scheduled General Surgery evaluated the patient for constipation. Continue with laxative and stool softeners as needed and scheduled. Patient has been refusing laxatives reporting he is having bowel movements The impression and plan of care has been dictated by Farzaneh Vu, Nurse Practitioner as directed. Dr. Manda MD I have performed a history and examination and MDM of this patient, discussed the same with the dictator, and agree with the dictator's assessment and plan as written ,documented as a scribe. Based on total visit time, I have performed more than 50% of the visit. Objective - Vital Signs Vital signs: Vital Signs Temp 98.1 F 03/03/24 07:00 Pulse 78 03/03/24 07:00 Resp 16 03/03/24 07:00 BP 130/72 03/03/24 07:00 Pulse Ox 94 L 03/03/24 07:00 FiO2 Intake & Output 03/02/24 03/03/24 03/03/24 18:59 06:59 18:59 Intake Total 358 Output Total 950 800 Balance -592 -800 Intake: Oral 358 Output: Urine 950 800 Other: Voiding Method Urinal Urinal # Voids 2 2 # Bowel Movements 2 - Labs CBC & Chem 7: 03/03/24 04:17 03/03/24 04:17 Labs: Abnormal Lab Results - Last 24 Hours (Table) 03/02/24 03/03/24 03/03/24 Range/Units 06:14 04:17 04:17 WBC 10.56 H (4.50-10.00) X 10*3/uL RBC 2.98 L 3.09 L (4.40-5.60) X 10*6/uL Hgb 8.6 L 8.8 L (13.0-17.0) g/dL Hct 27.9 L 28.2 L (39.6-50.0) % MCHC 30.8 L 31.2 L (32.0-37.0) g/dL Plt Count 543 H 597 H (140-440) X 10*3/uL MPV 9.3 L 9.2 L (9.5-12.2) FL BUN 6.2 L (9.0-27.0) mg/dL BUN/Creatinine Ratio 8.86 L (12.00-20.00) Ratio Glucose 118 H (70-110) mg/dL Calcium 8.4 L (8.7-10.3) mg/dL C-Reactive Protein 6.50 H (0.00-0.80) mg/dL Microbiology - Last 24 Hours (Table) 02/29/24 14:15 Anaerobic Culture - Preliminary Back 02/29/24 14:15 Gram Stain - Final Back Wound Culture - Final
[2024-03-04 07:17] VITALS: BP 135/76; PULSE 86; TEMP 98.4
--- NOTE | 2024-03-04 11:27 | P.PN ---
Subjective Progress Note Date: 03/04/24 SURGICAL PROGRESS NOTE CHIEF COMPLAINT: Back pain and leg pain HISTORY OF PRESENT ILLNESS: Surgical service following in regards to patient's constipation. Patient reports that his bowel movements were slowing down yesterday the stools were small. He started taking his laxatives again this morning. He is having flatus. Afebrile. PHYSICAL EXAM: VITAL SIGNS: Reviewed. GENERAL: Well-developed in no acute distress. ABDOMEN: Soft. obese. nontender NEUROLOGIC: Alert and oriented. Cranial nerves II through XII grossly intact. ASSESSMENT: 1. Constipation. Patient has had limited mobility since back surgery and has been taking narcotics for pain control 2. Prior history of constipation with narcotic use 3. Hyponatremia improved 4. Status post recent back surgery on 02/19/2024 5. Anemia. No active signs of bleeding. PLAN: -Continue regular diet -Encourage patient to ambulate -Recommend staying on a good bowel regimen after discharge Physician Tank [employer]ger note has been reviewed by physician. Signing provider agrees with the documented findings, assessment, and plan of care. Objective - Vital Signs Vital signs: Vital Signs Temp 98.4 F 03/04/24 07:00 Pulse 86 03/04/24 07:00 Resp 16 03/04/24 07:00 BP 135/76 03/04/24 07:00 Pulse Ox 94 L 03/04/24 07:00 FiO2 Intake & Output 03/03/24 03/04/24 03/04/24 18:59 06:59 18:59 Intake Total 118 Output Total 1800 1550 Balance -1682 -1550 Intake: Oral 118 Output: Urine 1800 1550 Other: Voiding Method Urinal Urinal Urinal # Voids 1 1 1 # Bowel Movements 0 1 - Labs CBC & Chem 7: 03/03/24 04:17 03/03/24 04:17
--- NOTE | 2024-03-04 14:50 | P.PN ---
Subjective Progress Note Date: 03/04/24 Principal diagnosis: Reason for follow-up is fever left foot pain question of cellulitis Patient is a 73-year-old male with a past medical history significant for hypertension hyperlipidemia osteoarthritis thyroid disorder in this patient who recently underwent decompressive laminectomy of the lumbar spine with Dr. Devries presenting to the hospital concerning for increasing swelling and pain to the left foot and also pain to the lumbar spine area patient did have a low-grade fever and the concern for possible cellulitis prompting this consultation. On today's evaluation that is 03/04/2024, Patient is afebrile this morning patient denies having any chest pain shortness of breath or cough, the patient is currently on room air, patient denies any abdominal pain no diarrhea no nausea no vomiting patient still complaining of pain to the lower back area some relief with the pain medication no drainage. No new lab has been obtained today culture remains to be negative Objective - Vital Signs Vital signs: Vital Signs Temp 98.4 F 03/04/24 07:00 Pulse 86 03/04/24 07:00 Resp 16 03/04/24 07:00 BP 135/76 03/04/24 07:00 Pulse Ox 94 L 03/04/24 07:00 FiO2 Intake & Output 03/03/24 03/04/24 03/04/24 18:59 06:59 18:59 Intake Total 118 Output Total 1800 1550 Balance -1682 -1550 Intake: Oral 118 Output: Urine 1800 1550 Other: Voiding Method Urinal Urinal Urinal # Voids 1 1 1 # Bowel Movements 0 1 - Exam GENERAL DESCRIPTION: An elderly male up in the chair in no distress RESPIRATORY SYSTEM: Unlabored breathing , decreased breath sounds at bases HEART: S1 S2 regular rate and rhythm , ABDOMEN: Soft , no tenderness EXTREMITIES: Left foot currently with no significant redness or drainage - Labs CBC & Chem 7: 03/03/24 04:17 03/03/24 04:17 Assessment and Plan (1) Fever Status: Acute Code(s): R50.9 - FEVER, UNSPECIFIED SNOMED Code(s): 732902348 (2) Cellulitis of left foot Status: Acute Code(s): L03.116 - CELLULITIS OF LEFT LOWER LIMB SNOMED Code(s): 50042128330237988 Plan: 1patient presenting to the hospital with left lower extremity and foot swelling and pain however has very minimal erythema to the medial end of the left foot clinically doubt significant cellulitis patient however he is running a fever which is slightly concerning and recently did have extensive lumbar decompress ilan surgery however the surgical site incision looks clean with a staple intact without any drainage 2-blood culture have been obtained results will be followed CRP is elevated, the patient did tested negative for COVID-19 procalcitonin has been normal 3-patient x-ray of the left foot is suspicious for gout and may be responsible for his pain rather than cellulitis patient is on colchicine 4patient did have a CT abdominal pelvis done by surgery did show significant changes to the lumbar spine with the fluid and air however patient incision looks clean patient is status post attempted aspiration by IR they got a small amount of blood which has been sent for culture results which are so far negative patient antibiotics were discontinued yesterday and the patient did not have any new fever worsening pain or redness to the lumbar surgical site, hence recommending no antibiotics on discharge Dictation was produced using [employer] dictation software. please excuse any grammatical, word or spelling errors. Time with Patient: Less than 30
--- NOTE | 2024-03-06 12:19 | CDI ---
Documentation Clarification Form Date: 03/06/2024 10:54:56 AM From: Carol Bower RN, CCDS Phone: [phone] Admit Date: 02/27/2024 03:48:00 PM Patient Name: Hayden Hendrix Visit Number: [id number] Discharge Date: 03/04/2024 01:48:00 PM ATTENTION: The Clinical Documentation Specialists (CDI) and [facility] Coding Staff appreciate your assistance in clarifying documentation. Please respond to the clarification below the line at the bottom and electronically sign. The CDI & [facility] Coding staff will review the response and follow-up if needed. Please note: Queries are made part of the Legal Health Record. If you have any questions, please contact the author of this message via ITS. Doctor Faustino E Sheet The patients principal diagnosis the diagnosis that was chiefly responsible for the admission - has not been clearly identified and clarification is requested. History/Risk factors: Hyperlipidemia, Hypertension, Musculoskeletal Disorder, Thyroid Disorder Clinical Indicators: 73-year-old male with left lower extremity pain and swelling x 2 days. He denies trauma. He is also complaining of significant pain to the lumbar surgical site describing it to be throbbing moderate intense without radiation. Infectious disease was consulted concerning for left lower extremity cellulitis. 02/26 ID progress note: left lower extremity and foot swelling and pain however has very minimal erythema to the medial end of the left foot clinically doubt significant cellulitis patient however he is running a fever. x-ray of the left foot is suspicious for gout and may be responsible for his pain rather than cellulitis patient is on colchicine we will discontinue Cefazolin and monitor off antibiotic. 02/27 Ortho consult: Patient did report back to the hospital due to worsening back pain, difficulty with ambulation and left foot pain and swelling. 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
== END 2024-03-04 13:48 | disposition home health service (06) | DRG 554 ==
LOC: EC 13:43 → 6NMEDSUR 17:46 → OBSVTOIN 02-27 15:48
PROVIDERS: ADMIT Hospitalist; ATTEND Hospitalist
PROC: 0J973ZX Drainage of Back Subcutaneous Tissue and Fascia, Percutaneous Approach, Diagnostic (ICD-10-PCS; principal; 2024-02-29)
DX: M10.9 Gout, unspecified (principal); L03.116 Cellulitis of left lower limb; K56.7 Ileus, unspecified; E87.1 Hypo-osmolality and hyponatremia; K91.89 Other postprocedural complications and disorders of digestive system; Z68.41 Body mass index [BMI] 40.0-44.9, adult; D64.9 Anemia, unspecified; E03.9 Hypothyroidism, unspecified; E66.01 Morbid (severe) obesity due to excess calories; I11.9 Hypertensive heart disease without heart failure; E27.9 Disorder of adrenal gland, unspecified; F32.A Depression, unspecified; M1A.9XX0 Chronic gout, unspecified, without tophus (tophi); E78.5 Hyperlipidemia, unspecified; M43.16 Spondylolisthesis, lumbar region; G89.29 Other chronic pain; M48.061 Spinal stenosis, lumbar region without neurogenic claudication; M47.27 Other spondylosis with radiculopathy, lumbosacral region; Z96.642 Presence of left artificial hip joint; Z86.16 Personal history of COVID-19; Z79.890 Hormone replacement therapy; Z79.899 Other long term (current) drug therapy; Z87.891 Personal history of nicotine dependence; Z85.830 Personal history of malignant neoplasm of bone; Z98.1 Arthrodesis status; Z88.8 Allergy status to other drugs, medicaments and biological substances; Z82.49 Family history of ischemic heart disease and other diseases of the circulatory system
CPT/HCPCS: 10160; 36415; 74177; 80048; 80053; 80202; 82565; 83605; 83935; 84145; 84300; 84550; 85025; 85027; 85610; 85652; 85730; 86140; 87040; 87070; 87075; 87205; 87636; 96365; 96375; 99285

== ENCOUNTER 2024-04-03 14:09 | Emergency (ER) | payer MEDICARE, OTHER ==
--- NOTE | 2024-04-03 14:33 | ED ---
General Adult HPI - General Chief complaint: Extremity Problem,Nontraumatic Stated complaint: L leg swelling Time Seen by Provider: 04/03/24 14:15 Source: patient Mode of arrival: EMS Limitations: no limitations - History of Present Illness Initial comments: Dictation was produced using [employer] dictation software. please excuse any grammatical, word or spelling errors. Chief Complaint: 73-year-old male with chronic lower extremity numbness tingling, insomnia and hypertension History of Present Illness: Patient 73-year-old male he states that he is here today for hypertension states that "my blood pressure is out of whack" checked it at home and systolic was measuring approximately 170s. Patient states that since February he had back surgery and has been dealing with chronic leg pain, leg paresthesias. States that he has been having trouble sleeping. When asked what is your primary complaint he states that came today because his blood pre ssure and his difficulty sleeping. The ROS documented in this emergency department record has been reviewed and confirmed by me. Those systems with pertinent positive or negative responses have been documented in the HPI. All other systems are other negative and/or noncontributory. - Related Data Home Medications Medication Instructions Recorded Confirmed Levothyroxine Sodium [Synthroid] 75 mcg PO DAILY 12/08/16 04/03/24 traZODone HCL 50 mg PO HS 01/12/21 04/03/24 Losartan/Hydrochlorothiazide 1 tab PO HS 11/14/21 04/03/24 [Losartan-Hctz 100-25 mg Tab] amLODIPine BESYLATE 2.5 mg PO HS 02/15/24 04/03/24 Albuterol Inhaler [Ventolin Hfa 2 puff INHALATION RT-Q6H PRN 02/25/24 04/03/24 Inhaler] Colchicine [Mitigare] 0.6 mg PO DAILY PRN 02/25/24 04/03/24 Gabapentin 600 mg PO TID 04/03/24 04/03/24 Previous Rx's Medication Instructions Recorded HYDROcodone/APAP 10-325MG [Andrews 1 tab PO Q6HR PRN #28 tab 02/23/24 10-325] Acetaminophen Tab [Tylenol] 650 mg PO Q6HR PRN tab 03/04/24 Lactulose [Cephulac] 30 gm PO BID PRN #360 ml 03/04/24 Sennosides [Senokot] 8.6 mg PO BID PRN #60 tab 03/04/24 polyethylene glycoL 3350 [Miralax] 17 gm PO DAILY #30 packet 03/04/24 Allergies Allergy/AdvReac Type Severity Reaction Status Date / Time bupropion [From Zyban] Allergy Rash/Hives Verified 04/03/24 15:37 diclofenac [From Arthrotec] Allergy Anaphylaxis, Verified 04/03/24 15:37 TROUBLE BREATH misoprostol [From Arthrotec] Allergy Anaphylaxis Verified 04/03/24 15:37 Oxtwhej-WVR-TmV Reductase AdvReac muscle pain Verified 04/03/24 15:37 Inhibitor [Vpsiftt-Rcc-Kli Reductase Inhibitor] Review of Systems ROS Statement: Those systems with pertinent positive or pertinent negative responses have been documented in the HPI. ROS Other: All systems not noted in ROS Statement are negative. Past Medical History Past Medical History: Hyperlipidemia, Hypertension, Musculoskeletal Disorder, Osteoarthritis (OA), Thyroid Disorder Additional Past Medical History / Comment(s): Pre-Diabetic, hx gout, lumbar spinal stenosis with pain, nerve pain, tingling and numbness in hands and feet, COVID JUNE 2021. 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 Past Anesthesia/Blood Transfusion Reactions: Family History of Problems w/ Anesthesia, Motion Sickness Additional Past Anesthesia/Blood Transfusion Reaction / Comment(s): "Nephew went into anaphylactic shock, he was allergic to it." Patient states never heard of malignant hyperthermia. Past Psychological History: Depression Smoking Status: Former smoker Past Alcohol Use History: None Reported Past Drug Use History: None Reported - Past Family History Mother Family Medical History: Myocardial Infarction (ME) General Exam - General Exam Comments Initial Comments: PHYSICAL EXAM: General Impression: Alert and oriented x3, not in acute distress HEENT: Normocephalic atraumatic, extra-ocular movements intact, pupils equal and reactive to light bilaterally, mucous membranes moist. Cardiovascular: Heart regular rate and rhythm Chest: Able to complete full sentences, no retractions, no tachypnea Abdomen: abdomen soft, non-tender, non-distended, no organomegaly Musculoskeletal: Pulses present and equal in all extremities, no peripheral edema Motor: no focal deficits noted Neurological: CN II-XII grossly intact, no focal motor or sensory deficits noted Skin: Intact with no visualized rashes Psych: Normal affect and mood Limitations: no limitations Course Vital Signs 04/03/24 14:15 Pulse Rate 90 Respiratory 22 Rate Blood Pressure 137/76 O2 Sat by Pulse 96 Oximetry Medical Decision Making - Medical Decision Making Was pt. sent in by a medical professional or institution (, PA, [employer], urgent care, hospital, or [place] [facility] facility...) When possible be specific @ -No Did you speak to anyone other than the patient for history (EMS, parent, family, police, friend...)? What history was obtained from this source @ -No Did you review nursing and triage notes (agree or disagree)? Why? @ -I reviewed and agree with nursing and triage notes Were old charts reviewed (outside hosp., previous admission, EMS record, old EKG, old radiological studies, urgent care reports/EKG's, [place] [facility] facility records)? Report findings @ -No old charts were reviewed Differential Diagnosis (chest pain, altered mental status, abdominal pain women, abdominal pain men, vaginal bleeding, musculoskeletal, weakness, fever, dyspnea, syncope, headache, dizziness, GI bleed, back pain, seizure, CVA, palpatations, mental health)? @ -Nerve impingement, contusion, strain EKG interpreted by me (3pts min.). @ -None done X-rays interpreted by me (1pt min.). @ -None done CT interpreted by me (1pt min.). @ -None done U/S interpreted by me (1pt. min.). @ -Left lower extremity shows no DVT What testing was considered but not performed or refused? (CT, X-rays, U/S, labs)? Why? @ -None What meds were considered but not given or refused? Why? @ -None Was smoking cessation discussed for >3mins.? @ -No Were there social determinants of health that impacted care today? How? (Homelessness, low income, unemployed, alcoholism, drug addiction, transportation, low edu. Level, literacy, decrease access to med. care, fpc, rehab)? @ -No Was there de-escalation of care discussed even if they declined (Discuss DNR or withdrawal of care, Hospice)? DNR status @ -No What co-morbidities impacted this encounter? (DM, HTN, Smoking, COPD, CAD, Cancer, CVA, ARF, Chemo, Hep., AIDS, mental health diagnosis, sleep apnea, morbid obesity)? @ -None Was patient admitted / discharged? Hospital course, mention meds given and route, prescriptions, significant lab abnormalities, going to OR and other pertinent info. @ -73-year-old male with complaints of chronic left lower extremity pain, insomnia and elevated blood pressure. Stable. Blood pressure 137/76. Physical examination is benign. Ultrasound negative. No high risk features. Patient discharged. Told to follow-up with his spine doctor regarding his chronic leg symptoms Did you discuss the management of the patient with other professionals (professionals i.e. , PA, [employer], lab, RT, psych nurse, social work associate, stock holder, teacher, loans officer, disease case manager rn)? Give summary @ -No Was critical care preformed (if so, how long)? @ -No Undiagnosed new problem with uncertain prognosis? @ -No Drug Therapy requiring intensive monitoring for toxicity (Heparin, Nitro, Insulin, Cardizem)? @ -No Were any procedures done? @ -No Diagnosis/symptom? Acute, or Chronic, or Acute on Chronic? Uncomplicated (wi thout systemic symptoms) or Complicated (systemic symptoms)? @ -Left lower extremity neuropathy Side effects of treatment? @ -No Exacerbation, Progression, or Severe Exacerbation? @ -No Poses a threat to life or bodily function? How? (Chest pain, [place], ME, pneumonia, PE, COPD, DKA, ARF, appy, cholecystitis, CVA, Diverticulitis, Homicidal, Suicidal, threat to staff... and all critical care pts) @ -No - Lab Data Result diagrams: 04/03/24 14:49 04/03/24 14:52 Lab Results 04/03/24 04/03/24 Range/Units 14:49 14:52 WBC 7.8 (3.8-10.6) k/uL RBC 4.37 (4.30-5.90) m/uL Hgb 11.6 L (13.0-17.5) gm/dL Hct 36.0 L (39.0-53.0) % MCV 82.3 D (80.0-100.0) fL MCH 26.6 (25.0-35.0) pg MCHC 32.3 (31.0-37.0) g/dL RDW 15.8 H (11.5-15.5) % Plt Count 355 (150-450) k/uL MPV 6.9 Neutrophils % 61 % Lymphocytes % 24 % Monocytes % 8 % Eosinophils % 4 % Basophils % 1 % Neutrophils # 4.8 (1.3-7.7) k/uL Lymphocytes # 1.8 (1.0-4.8) k/uL Monocytes # 0.6 (0-1.0) k/uL Eosinophils # 0.3 (0-0.7) k/uL Basophils # 0.1 (0-0.2) k/uL Hypochromasia Moderate Poikilocytosis Slight Sodium 137 (137-145) mmol/L Potassium 4.0 (3.5-5.1) mmol/L Chloride 100 (98-107) mmol/L Carbon Dioxide 28 (22-30) mmol/L Anion Gap 9 mmol/L BUN 17 (9-20) mg/dL Creatinine 0.75 (0.66-1.25) mg/dL Est GFR (CKD-EPI)AfAm >90 (>60 ml/min/1.73 sqM) Est GFR (CKD-EPI)NonAf >90 (>60 ml/min/1.73 sqM) Glucose 85 (74-99) mg/dL Calcium 9.6 (8.4-10.2) mg/dL Disposition Clinical Impression: Neuropathy Disposition: HOME SELF-CARE Condition: Fair Instructions (If sedation given, give patient instructions): Peripheral Neuropathy (ED) Is patient prescribed a controlled substance at d/c from ED?: No Referrals: John Tim MD [Primary Care Provider] - 1-2 days Time of Disposition: 17:15
[2024-04-03] MEDS: MORPHINE SULFATE 4 MG/ML SYRINGE IV STA (15:02)
[2024-04-03 15:03] LABS: Basophils # (A) 0.1 k/uL (0-0.2); Basophils % (A) 1 %; Eosinophils # (A) 0.3 k/uL (0-0.7); Eosinophils % (A) 4 %; HGB 11.6 gm/dL (13.0-17.5); Hypochromasia Moderate; Lymphocytes # (A) 1.8 k/uL (1.0-4.8); Lymphocytes % (A) 24 %; MCH 26.6 pg (25.0-35.0); MCHC 32.3 g/dL (31.0-37.0); Mean Platelet Volume 6.9; Monocytes # (A) 0.6 k/uL (0-1.0); Monocytes % (A) 8 %; Neutrophils # (A) 4.8 k/uL (1.3-7.7); Neutrophils % (A) 61 %; Platelet Count 355 k/uL (150-450); Poikilocytosis Slight; RBC 4.37 m/uL (4.30-5.90); RDW 15.8 % (11.5-15.5); WBC 7.8 k/uL (3.8-10.6)
[2024-04-03 15:16] LABS: African American GFR (CKD) >90 (>60 ml/min/1.73 sqM); Anion Gap 9 mmol/L; Blood Urea Nitrogen 17 mg/dL (9-20); Calcium 9.6 mg/dL (8.4-10.2); Carbon Dioxide 28 mmol/L (22-30); Chloride 100 mmol/L (98-107); Glucose 85 mg/dL (74-99); Non-African American GFR(CKD) >90 (>60 ml/min/1.73 sqM); Sodium 137 mmol/L (137-145)
[2024-04-03 15:19] LABS: MCV 82.3 fL (80.0-100.0)
--- NOTE | 2024-04-03 16:47 | US ---
EXAMINATION TYPE: US venous doppler duplex LE LT DATE OF EXAM: 04/03/2024 3:52 PM COMPARISON: US 2023 CLINICAL INDICATION: Male, 73 years old with history of leg pain; , Pain TECHNIQUE: The lower extremity deep venous system is examined utilizing real time linear array sonog muriel with graded compression, color doppler sonography, and spectral doppler. SIDE PERFORMED: Left FINDINGS: VESSELS IMAGED: Common Femoral Vein Deep Femoral Vein Greater Saphenous Vein * Femoral Vein Popliteal Vein Small Saphenous Vein * Proximal Calf Veins (* superficial vessels) Left Leg: Appears negative for DVT IMPRESSION: No ultrasound evidence for deep venous thrombosis. Left lower extremity ultrasound negative for deep venous thrombosis. [facility], , 04/03/2024 4:44 PM
[2024-04-03 17:26] VITALS: BP 157/83; PULSE 77; RESP 20
== END 2024-04-03 17:26 | disposition home or self-care (01) ==
LOC: EC 14:09
DX: G57.92 Unspecified mononeuropathy of left lower limb (principal); Z87.891 Personal history of nicotine dependence; Z88.8 Allergy status to other drugs, medicaments and biological substances
CPT/HCPCS: 36415; 80048; 85025; 93971; 99284; 96374; J2270